=== PATIENT | male | born 1935 | race Caucasian/White ===

== ENCOUNTER → 2018-05-08 12:19 | Outpatient (CLI) | payer MEDICARE, BC, SELFPAY ==
--- NOTE | 2018-05-08 12:19 | DT_ITS ---
This patient was seen during an EMR downtime May 04, 2018 - May 11, 2018. This patient may have a combination of paper and electronic documentation or all paper documentation. All documentation is viewable within the e-chart portion of [facility] for each patient visit.
--- NOTE | 2018-05-08 12:20 | STE_ITS ---
Reason For Study: CAD/S/P CABG Stress Results Protocol: Kieran Protocol Maximum Predicted HR: 137 bpm Target HR: 116 bpm% Max imum Predicted HR: 99 % DurationHeart Rate Stage (mm:ss) (bpm) BPCom ment BASELINE 70 152/80 4 CC DEFINITY STAGE 1 3:00 10 8 160/82 STAGE 2 1:31 13 6 172/822CC DEFINITY, SOB/FATIGUE RECOVERY 68 142/78 Stress Duration: 4:31 mm:ss Maximum Stress HR: 136 bpm Baseline Echocardiogram Findings The estimated ejection fraction is 60 %. Normal left ventricle. Stress Echo Wall motion Data Resting WMIntermediate WMStress WM Resting Wall Motion Wall Motion Stress Ejection Fraction 60 %. Ejection Fraction 45-50 %. EKG Data The baseline ECG displays normal sinus rhythm. NSR, PVC, VENTRICULAR COMPLEX. Interpretation Summary The study was technically difficult. Contrast injection was performed. 1) Abnormal, adequate treadmill echo 2) Positive for anterior/septal ischemia 3) No anginal symptoms 4) Appropriate blood pressure response followed 5) Below average exercise for age 6) Final LVEF= 45-50% 7) Stress test terminated due to severe dyspnea The estimated ejection fraction is 60 %. Ordering Physician: Jossue Ferro MD Referring Physician: Jossue Ferro MD Performed By: Conchis Dugan RDCS
== END ==
PROVIDERS: Family Provider Family Medicine; PCP Family Medicine; Visit Provider Internal Medicine Cardiovascular Disease
DX: I25.10 Atherosclerotic heart disease of native coronary artery without angina pectoris (principal); Z95.1 Presence of aortocoronary bypass graft; I10 Essential (primary) hypertension; I25.2 Old myocardial infarction
CPT/HCPCS: 93017; 93350; Q9957

== ENCOUNTER → 2018-05-12 15:26 | Outpatient (CLI) | payer MEDICARE, BC, SELFPAY | PROVIDERS: Family Provider Family Medicine; PCP Family Medicine; Visit Provider Physician Assistant Medical | DX: R94.39 Abnormal result of other cardiovascular function study (principal); I25.10 Atherosclerotic heart disease of native coronary artery without angina pectoris; I10 Essential (primary) hypertension; I48.0 Paroxysmal atrial fibrillation; E78.5 Hyperlipidemia, unspecified ==

== ENCOUNTER → 2018-05-20 06:50 | Day surgery (SDC) | payer MEDICARE, BC, SELFPAY ==
--- NOTE | 2018-05-12 15:28 | RAD_ITS ---
STUDY: X-RAY CHEST REASON FOR EXAM: Male, 83 years old. Abnormal stress echo TECHNIQUE: PA and lateral COMPARISON: April 09, 2017 FINDINGS: There is mild interstitial prominence in the left lower lobe.. There is no demonstrated pleural abnormality. Postop change status post median sternotomy and CABG Normal size heart. Normal mediastinum and renan. Normal visualized pulmonary arteries. Normal visualized aortic arch and descending thoracic aorta. Dorsal spine demonstrates spondylosis. Normal visualized ribs, clavicles, and shoulders. There is no demonstrated abnormality of the visualized soft tissue structures of the upper abdomen. No significant change since prior exam RAD/Chest PA and Lateral IMPRESSION: Minor chronic interstitial changes at left base. No acute disease Electronically Signed: Tree Mendieta MD at 16:43 EDT , Service support ,
[2018-05-12 15:47] LABS: Absolute Lymphocyte Count 2.06 X10^3/ul (0.83-4.51); Absolute Neutrophil Count 4.6 X10^3/uL (2.0-7.7); Basophil# 0.02 X10^3/uL; Basophil% 0.3 % (0-1); Eosinophil# 0.16 X10^3/uL; Eosinophils% 2.1 % (0-5); Hematocrit 42.5 % (40-54); Lymphocyte # 2.06 X10^3/ul (4.0); Lymphocyte % 27.4 % (19-41); Mean Corp Hgb Conc 32.9 g/gl (32-36); Mean Corpuscular Hgb 32.3 pg (27.0-32.0); Mean Corpuscular Volume 97.9 fL (80-94); Mean Platelet Vol. 10.9 fl (6.2-12.0); Monocyte# 0.68 X10^3/uL; Neutrophil # 4.59 X10^3/uL (2.7-7.7); Neutrophil % 61.1 % (47-70); Platelet Count 138 K/mm3 (150-450); RBC Distribution Width CV 13.8 % (11.6-14.6); RBC Distribution Width SD 49.7 fl (35.1-43.9); Red Blood Count 4.34 M/mm3 (4.6-6.2); White Blood Count 7.5 K/mm3 (4.4-11.0)
[2018-05-12 15:53] LABS: POSITIVE COUNT NO; POSITIVE DIFFERENTIAL NO; POSITIVE MORPHOLOGY NO
[2018-05-12 16:11] LABS: Anion Gap 10 (5-15); BUN 30 mg/dL (7-18); BUN/Creat Ratio 23.6 RATIO (10-20); Chloride 106 mmol/L (98-107); Creatinine, Serum 1.27 mg/dL (0.70-1.30); EST Glomerular Filtration Rate 58 mL/min (>60); Est Glom Filt Rate - Afr Amer 70 mL/min (>60); Glucose 191 mg/dL (74-106); Potassium 4.2 mmol/L (3.5-5.1); Sodium Level 141 mmol/L (136-145)
[2018-05-12 16:31] LABS: Partial Thromboplast Time 28.6 Seconds (24.1-36.2)
[2018-05-12 16:34] LABS: Prothrombin Time (Protime)PT. 13.3 SECONDS (11.7-14.9)
[2018-05-19 09:30] VITALS: BMI 33.2
--- NOTE | 2018-05-20 09:02 | CL.D_ITS ---
Patient Name: SILVINO FERRERA Study Date: 05/20/2018 Performing: Jossue Ferro MD Ht: 70.86 inches 180 cm : 1935 Wt: 238.1 lbs 108 kg Age: 83 Gender: male BSA: 2.27 PROCEDURE(S) PERFORMED EC43-NMQ/COR/LV/CABG CLINICAL PROFILE AND INDICATIONS Indications: Stable Known CAD Heart Failure: None Stress/Imaging Stress Echocardiogram: Yes Result: IndeterminantStress Echocardiogram: Indetermina nt Angina Classification Anginal Classification w/in 2 Weeks: No symptoms CAD Presentations: Other: Poor exercise capacity on stress test in face of 14 year old grafts. Comorbidities/Risk Factors: Hypertension Dyslipidemia Prior CABG CONCLUSIONS Triple vessel CAD of the LM, LAD, LCX and RCA. Widely patent MUHAMMAD to LAD. Widely patent SVG to RCA. Widely patent SVG to OM Widely patent SVG to DIAG. RECOMMENDATIONS Risk factor modification ASA Indefinitely Management as per referring Watch Dial Stoner Continue Plavix for graft preservation. DESCRIPTION OF PROCEDURE The patient arrived to the procedure lab. The risks and benefits of the procedure as well as a full d escription of our services here and current unavailability of surgical backup were fully explained to the patient and/or their significant other prior to the catheterization. The Timeout was completed, verifying the correct patient and procedure. The patient's procedural site was prepped and draped in the usual fashion. Local anesthetic was given subcutaneously to right groin region with Lidocaine 2%. Using a modified Seldinger technique, arterial access was obtained via the right femoral artery, a 5 Fr sheath was inserted. Left Coronary Artery selective angiography was performed in multiple views u sing a 5 Fr. JL 5 catheter. Right Coronary Artery selective angiography was then performed in multipl e views using a 5 Fr. 3DRC (Bowen) catheter. Saphenous Vein graft to the DIAG 1 selective angiogra phy was performed in multiple views using a 5 Fr. 3DRC (Bowen) catheter. Saphenous Vein graft to t he RCA selective angiography was performed in multiple views using a 5 Fr. 3DRC (Bowen) catheter. Left internal mammary artery graft to the LAD selective angiography was performed in multiple views u sing a 5 Fr. 3DRC (Bowen) catheter. Saphenous Vein graft to the Circumflex selective angiography w as performed in multiple views using a 4 Fr. AR MOD 2 catheter. Left Ventriculography was performed i n PAYNE projection using a 5 Fr. Pigtail catheter. LV to AO pullback pressures were then recorded.The a rterial sheath was pulled and manual compression applied until hemostasis is achieved. CORONARY ANGIOGRAPHY DOMINANCE: Right Dominant LEFT HEART ASSESSMENT Left Ventricular Ejection Fraction: by LV Gram 65 % Normal LV wall motion LEFT MAIN: 75 ostial % Stenosis LEFT ANTERIOR DECENDING ARTERY: PROX LAD: 75 % Stenosis CIRCUMFLEX ARTERY: MID CIRC: 75 % Stenosis RIGHT CORONARY ARTERY: PROX RCA: 100 % Stenosis GRAFTS: MUHAMMAD graft to the LAD is patent Saphenous Vein graft to the 1st Diagonal is patent Saphenous Vein graft to the CIRC is patent Saphenous Vein graft to the RCA is patent COMPLICATIONS No Complications PROCEDURE MEDICATIONS Oxygen: 2 L/min via nasal cannula Baby Aspirin (81mg) 1 Tabs PO @ 05/20/2018 07:09:47 SUMMARY OF HEMODYNAMIC DATA Time AIR REST ECG 07:09:59 AO 158/61 (95) SA 08:40:11 LV 143/-22, 18 08:50:55 LV 153/-18, 17 08:51:01 LVp 159/55, 59 08:51:14 AOp 160/56 (94) 08:51:19 Signed By Jossue Ferro MD On 05/20/2018 09:01:58 Jossue Ferro MD
== END ==
LOC: CLSP 06:51
PROVIDERS: Physician Assistant Medical; Family Provider Family Medicine; PCP Family Medicine; Visit Provider Internal Medicine Cardiovascular Disease
DX: R94.39 Abnormal result of other cardiovascular function study (principal); I25.810 Atherosclerosis of coronary artery bypass graft(s) without angina pectoris; I10 Essential (primary) hypertension; I48.0 Paroxysmal atrial fibrillation; N40.0 Benign prostatic hyperplasia without lower urinary tract symptoms; E78.5 Hyperlipidemia, unspecified; I25.2 Old myocardial infarction; Z79.82 Long term (current) use of aspirin; Z95.1 Presence of aortocoronary bypass graft; Z85.038 Personal history of other malignant neoplasm of large intestine; Z87.891 Personal history of nicotine dependence
CPT/HCPCS: 36415; 71046; 80048; 85025; 85610; 85730; 93459; J7040; C1769; Q9967

== ENCOUNTER → 2018-07-24 07:13 | Outpatient (CLI) | payer MEDICARE, BC, SELFPAY ==
[2018-07-24 10:46] LABS: AST(SGOT) 17 U/L (15-37); Alanine Aminotransfer ALT/SGPT 18 U/L (16-61); Albumin, Serum 3.3 g/dL (3.2-5.0); Alkaline Phosphatase 58 U/L (45-117); Bilirubin, Direct 0.15 mg/dL (0.00-0.30); Cholesterol 117 mg/dL (200); Globulin 3.1 g/dL (2.2-4.2); High Density Lipoprotein 56 mg/dL; Protein, Total 6.4 g/dL (6.4-8.2); Triglycerides 91 mg/dL; Very Low Density Lipoprotein 18 mg/dL (5-40)
== END ==
PROVIDERS: Family Provider Family Medicine; PCP Family Medicine; Visit Provider Physician Assistant Medical
DX: I25.10 Atherosclerotic heart disease of native coronary artery without angina pectoris (principal); E78.5 Hyperlipidemia, unspecified; I10 Essential (primary) hypertension
CPT/HCPCS: 36415; 80061; 80076

== ENCOUNTER → 2018-10-20 07:26 | Outpatient (CLI) | payer MEDICARE, BC, SELFPAY ==
[2018-10-20 11:04] LABS: Anion Gap 9 (5-15); BUN 23 mg/dL (7-18); BUN/Creat Ratio 21.3 RATIO (10-20); Calcium,Total 8.6 mg/dL (8.5-10.1); Chloride 106 mmol/L (98-107); Creatinine, Serum 1.08 mg/dL (0.70-1.30); EST Glomerular Filtration Rate 69 mL/min (>60); Est Glom Filt Rate - Afr Amer 84 mL/min (>60); Glucose 137 mg/dL (74-106); PSA,Total- Diagnostic < 0.01 ng/mL (0.0-4.0); Potassium 4.4 mmol/L (3.5-5.1); Sodium Level 142 mmol/L (136-145)
[2018-10-20 11:07] LABS: Hemoglobin A1c 7.4 % (4.2-6.3)
== END ==
PROVIDERS: Family Provider Family Medicine; PCP Family Medicine; Referring Provider Family Medicine; Visit Provider Family Medicine
DX: C61 Malignant neoplasm of prostate (principal); E11.9 Type 2 diabetes mellitus without complications
CPT/HCPCS: 36415; 80048; 83036; 84153

== ENCOUNTER → 2019-02-05 07:34 | Outpatient (CLI) | payer MEDICARE, SELFPAY ==
[2018-07-15 09:24] VITALS: BMI 33.6
[2019-02-05 10:19] LABS: AST(SGOT) 18 U/L (15-37); Alanine Aminotransfer ALT/SGPT 18 U/L (16-61); Albumin, Serum 3.6 g/dL (3.2-5.0); Alkaline Phosphatase 62 U/L (45-117); Bilirubin, Direct 0.12 mg/dL (0.00-0.30); Cholesterol 134 mg/dL (200); Globulin 3.2 g/dL (2.2-4.2); High Density Lipoprotein 52 mg/dL; Protein, Total 6.8 g/dL (6.4-8.2); Triglycerides 124 mg/dL; Very Low Density Lipoprotein 25 mg/dL (5-40)
== END ==
PROVIDERS: Family Provider Family Medicine; PCP Family Medicine; Referring Provider Physician Assistant Medical; Visit Provider Physician Assistant Medical
DX: R69 Illness, unspecified (principal)
CPT/HCPCS: 80061; 80076

== ENCOUNTER 2019-02-07 08:55 | Inpatient (IN) | payer MEDICARE, SELFPAY ==
[2019-02-07] VITALS (9 sets, daily range): BP systolic 130–162; BP diastolic 57–79; PULSE 70–86; RESP 16–20; TEMP 36.3–37; O2SAT 93–97; BMI 32.8; BMI 33.1
--- NOTE | 2019-02-07 09:15 | CT_ITS ---
STUDY: CT ABDOMEN AND PELVIS WITHOUT CONTRAST REASON FOR EXAM: Male, 83 years old. Abdominal pain, history of colon cancer RADIATION DOSAGE (If Supplied By Facility): CTDIvol = ( 16.28 ) mGy, DLP = ( 984.62 ) mGycm TECHNIQUE: Transaxial images were obtained from the dome of the diaphragm to the symphysis pubis without oral contrast, and without intravenous contrast. Sagittal and coronal images were reconstructed. Individualized dose optimization techniques were used for this CT. COMPARISON: 06/28/2016 FINDINGS: There are chronic interstitial fibrotic changes of the lung bases. Coronary artery calcifications and sternotomy wires partially visualized. Normal liver. There are multiple gallstones. Normal spleen. Normal pancreas. Normal bilateral adrenal glands. No hydronephrosis. Left parapelvic renal cysts are similar. There is a small hiatal hernia. There are dilated loops of the small intestine with a non-distended colon consistent with a small bowel obstruction. There is a transition point in the central lower abdomen (axial image 157, coronal image 66). There is fecal residue in the colon but no colon wall thickening demonstrated. Sigmoid colon anastomosis is similar. There is non-visualization of the appendix. There is diffuse atherosclerotic calcification of the abdominal aorta, without a demonstrated aneurysm. Normal inferior vena cava. Normal retroperitoneum. Normal urinary bladder. There are metallic implants adjacent to the prostate gland. A left inguinal hernia containing a portion of small bowel identified but does not appear to be cause of small bowel obstruction. There are degenerative changes of the lumbar spine and bilateral hips. CT/Abdomen/Pelvis without Cont IMPRESSION: 1. Distal jejunal or proximal ileal small bowel obstruction with transition point in the lower central abdomen, likely secondary to adhesions. No pneumoperitoneum, pneumatosis or portal venous gas. 2. Left inguinal hernia containing a portion of small bowel but does not appear to contribute to small bowel obstruction. 3. Additional chronic changes, as above. Electronically Signed: Grayson Medina MD at 10:43 EDT , Service support ,
[2019-02-07] MEDS: Ondansetron 4 MG/2 ML Vial IV (09:55)
[2019-02-07] MEDS: Morphine 4 MG/ML Syringe IV ×2 (09:55→15:11)
[2019-02-07] MEDS: 0.9% Normal Saline 1,000 ML 1000 ML IV (09:55)
[2019-02-07 10:13] LABS: Absolute Neutrophil Count 7.4 X10^3/uL (2.0-7.7); Basophil# 0.01 X10^3/uL; Basophil% 0.1 % (0-1); Eosinophil# 0.01 X10^3/uL; Eosinophils% 0.1 % (0-5); Hematocrit 44.8 % (40-54); Hemoglobin 14.5 g/dl (13.0-16.5); Lymphocyte % 8.8 % (19-41); Mean Corp Hgb Conc 32.4 g/gl (32-36); Mean Corpuscular Hgb 31.5 pg (27.0-32.0); Mean Corpuscular Volume 97.4 fL (80-94); Mean Platelet Vol. 10.9 fl (6.2-12.0); Monocyte# 0.86 X10^3/uL; Monocyte% 9.5 % (0-10); Neutrophil # 7.37 X10^3/uL (2.7-7.7); Neutrophil % 81.4 % (47-70); Platelet Count 171 K/mm3 (150-450); RBC Distribution Width CV 14.1 % (11.6-14.6); RBC Distribution Width SD 50.4 fl (35.1-43.9); White Blood Count 9.1 K/mm3 (4.4-11.0)
[2019-02-07 10:14] LABS: POSITIVE COUNT NO; POSITIVE DIFFERENTIAL NO; POSITIVE MORPHOLOGY NO
[2019-02-07 10:28] LABS: AST(SGOT) 14 U/L (15-37); Alanine Aminotransfer ALT/SGPT 16 U/L (16-61); Albumin, Serum 3.5 g/dL (3.2-5.0); Alkaline Phosphatase 63 U/L (45-117); Anion Gap 10 (5-15); BUN 30 mg/dL (7-18); BUN/Creat Ratio 26.3 RATIO (10-20); Calcium,Total 8.9 mg/dL (8.5-10.1); Chloride 99 mmol/L (98-107); Creatinine, Serum 1.14 mg/dL (0.70-1.30); EST Glomerular Filtration Rate 65 mL/min (>60); Est Glom Filt Rate - Afr Amer 79 mL/min (>60); Estimated Creatinine Clearance 52.29 ml/min; Globulin 3.5 g/dL (2.2-4.2); Glucose 191 mg/dL (74-106); Lipase 63 U/L (73-393); Potassium 3.8 mmol/L (3.5-5.1); Sodium Level 136 mmol/L (136-145)
--- NOTE | 2019-02-07 11:03 | RAD_ITS ---
STUDY: X-RAY - ABDOMEN/PELVIS REASON FOR EXAM: Male, 83 years old. An NG tube insertion TECHNIQUE: Supine abdomen COMPARISON: None. FINDINGS: Enteric tube extends to the left upper abdomen. Dilated loops of small bowel noted similar since CT earlier today. There is no demonstrated free abdominal air. The visualized liver, spleen and kidneys are grossly normal in size and morphology. Metallic prostatic implants noted. Normal soft tissue structures. Normal visualized osseous structures. RAD/Abdomen Single View (Portable) IMPRESSION: Enteric tube extends to the stomach. Persistent bowel obstruction. Electronically Signed: Grayson Medina MD at 12:43 EDT , Service support ,
--- NOTE | 2019-02-07 11:19 | NURSING ---
PAGED DR MACKAY
[2019-02-07 11:20] LABS: Red Blood Cells-Urine 0 SEEN /hpf (0-5)
[2019-02-07 11:22] LABS: Color, Urine Yellow (Yellow); Glucose, Dipstick Normal (Normal); Ketone-Dipstick 15 mg/dl (Negative); Leukocyte Esterase-Dipstick 25 /ul (Negative); Nitrite-Dipstick Negative (Negative); Occult Blood-Urine Negative /ul (Negative); Protein-Dipstick 30 mg/dl (Negative); Specific Gravity, Urine 1.025 (1.002-1.030); Urine Clarity Sl. Cloudy (Clear); Urine Urobilinogen 1 mg/dl (Normal)
[2019-02-07 11:25] LABS: Urine Bilirubin Dipstick 1 mg/dL (Negative)
[2019-02-07 11:31] LABS: Bacteria 1+ /hpf (None Seen); Hyaline Cast 0-5 SEEN /lpf (0-5); Mucous, Urine 2+ /hpf (<or=2+); Squamous Epithelial Cells - UA 0-5 SEEN /hpf (0-5); White Blood Cells 0-5 SEEN /hpf (0-5)
--- NOTE | 2019-02-07 11:46 | ED.VISSUMM ---
- ER Visit Summary Date of Service: 02/07/19 Chief Complaint: Patient with nausea vomiting and abdominal pain past 2 days. No fever or chills. He has not been able to have a bowel movement. He has a complicated history of multiple abdominal surgeries as well as obstructions and lysis of adhesion. He feels similar today. Physical Examination: Patient appears in some distress Moist mucous membranes, no obvious facial deformity No C-spine tenderness supple neck. Regular rate and rhythm without any obvious murmurs Clear lungs bilaterally speaking in full sentences without any obvious respiratory distress Abdomen soft no significant distention, I do hear bowel sounds are regular quite diminished. Moves all extremities without any difficulty or pain. Skin does not show any obvious rashes or lesions, no trauma. Alert oriented ?3 with no gross focal deficit Emergency Department Course and Treatment: Patient is found to have an obstruction, I talked to Dr. Osuna patient will be admitted. NG tube was placed. Admit stable condition Impression: [Small bowel obstruction] This note was generated with [employer] dictation software. It may contain incorrect words, spelling, and punctuation that were not noted in review of the chart prior to signing ED Disposition - Plan for ED Patient: Referrals: Saul Garay MD [Primary Care Provider] -
--- NOTE | 2019-02-07 12:25 | PN_ITS ---
Subjective: Hospital medicine consult: Reason for consult: Medical management, comanagement for general surgery 83-year-old male with past medical history of CAD, hypertension, hyperlipidemia, paroxysmal atrial fibrillation. He has a complex past medical history. 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 He had reversal of his colostomy done subsequently. He has history of recurrent hernia at the colostomy site status post mesh repair. 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 He comes in today with complaints of nausea and vomiting ongoing for 2 days as well as abdominal discomfort. He denies any bowel movements. Denies any fever or chills or chest pain or shortness of breath. He has not been able to eat anything for the past 2 days because anytime he eats he vomits. Vitals in the ED show temperature of 90 7.4F, heart rate of 70, blood pressure was 130/57, respiratory rate was 90, respiratory 23% on room air WBC count is 9.1, hemoglobin is 14.5, platelet count is 171. BMP is unremarkable with BUN of 30, creatinine 1.14 Vitals/I&O's: Vital Signs Temp Pulse Resp BP Pulse Ox 98 F 86 17 141/79 H 96 02/07/19 08:56 02/07/19 08:56 02/07/19 11:29 02/07/19 08:56 02/07/19 08:56 Oxygen Delivery Method Room Air Weight: 106.594 kg Body Mass Index (BMI) 32.8 General: Alert, Oriented x3, Cooperative, No apparent distress, - - obese, comfortable, not on oxygen HEENT: Atraumatic, PERRLA, EOMI, Normocephalic Oral: Moist Mucosa Neck: Supple Lungs: Clear to auscultation, Normal air movement Cardiovascular: Regular rate, Regular Rhythm, Normal S1, Normal S2, No murmurs Abdomen: Bowel Sounds Present, Soft, Tender - lower abdominal tenderness, - - Midline incisional scar Extremities: No edema Skin: No rashes Musculoskeletal: No Tenderness to Palpation of Joints or Extremities Lymphatic: No Cervical, Supraclavicular, or Inguinal Adenopathy Neurological: Cranial nerves II-XII grossly intact, Neuro grossly intact Psych/Mental Status: Normal Affect, Appropriate Laboratory Results 02/07/19 09:50: WBC 9.1, RBC 4.60, Hgb 14.5, Hct 44.8, MCV 97.4 H, MCH 31.5, MCHC 32.4, RDW 14.1, RDW Differential 50.4 H, Plt Count 171, MPV 10.9, Immature Gran % (Auto) 0.100, Neut % (Auto) 81.4 H, Lymph % (Auto) 8.8 L, [place] % (Auto) 9.5, Eos % (Auto) 0.1, Baso % (Auto) 0.1, Absolute Neuts (auto) 7.4, Absolute Lymphs (auto) 0.80 L, Total Counted Not Reportable 02/07/19 09:50: Sodium 136, Potassium 3.8, Chloride 99, Carbon Dioxide 27.0, Anion Gap 10, BUN 30 H, Creatinine 1.14, Estim Creat Clear Calc 52.29, Est GFR (MDRD) Af Amer 79, Est GFR (MDRD) Non-Af 65, BUN/Creatinine Ratio 26.3 H, Glucose 191 H, Calcium 8.9, Total Bilirubin 1.30 H, AST 14 L, ALT 16, Alkaline Phosphatase 63, Total Protein 7.0, Albumin 3.5, Globulin 3.5, Albumin/Globulin Ratio 1.0, Lipase 63 L 02/07/19 11:06: Urine Color Yellow, Urine Clarity Sl. Cloudy, Urine pH 5.0, Ur Specific [place] 1.025, Urine Protein 30 H, Urine Glucose (UA) Normal, Urine Ketones 15 H, Urine Occult Blood Negative, Urine Nitrite Negative, Urine Bilirubin 1 H, Urine Urobilinogen 1 H, Ur Leukocyte Esterase 25 H, Urine RBC 0 SEEN, Urine WBC 0-5 SEEN, Ur Squamous Epith Cells 0-5 SEEN, Urine Bacteria 1+, Hyaline Casts 0-5 SEEN, Urine Mucus 2+ Medical Necessity - Tobacco Use Smoking Status: Never smoker Assessment/Plan 83-year-old male with past medical history of CAD, hypertension, hyperlipidemia, paroxysmal atrial fibrillation, with complex past surgical history significant for resection for colon cancer in the status post colostomy, reversal of colostomy, history of recurrent hernia repairs who comes in with complaints of nausea vomiting and found to have small bowel obstruction 1. Acute small bowel obstruction secondary to adhesions, no electrolyte imbalances, general surgery plans on conservative management Abdominal CT on admission shows dilated loops of small bowel with a transition point in the central lower abdomen. Plan: Continue on IV fluids, status post NG tube, monitor output, monitor patient expectantly 2. CAD status post CABG, on aspirin, statin, beta-gabirella, DIANDRA inhibitor. We will continue all except for DIANDRA inhibitor for now on account of patient's hydration status 3. Hypertension, controlled, continue home amlodipine, metoprolol. Hydrochlorothiazide and ramipril on hold 4. Hyperlipidemia, on statin 5. DVT PPx- Heparin SC Code Visit Inpatient E&M: 48318 Init Hosp L3
--- NOTE | 2019-02-07 12:41 | CM.ED ---
Social Work Note Face to face with pt to complete initial assessment for admission. Introduced self and role at [facility]. The pt is alone during assessment, but alert and oriented x3 and able to participate. Pt reports to live with his in a one-story home with 3 HILDA and a handrail/banister. Denies access issues or use of DME. Pt is independent with ADLs and does not anticipate any discharge needs at this time. Confirms that his PCP is Dr. Saul Garay at [facility]. He is also established with Dr. Ferro and Dr. Francois. Preferred pharmacy is [facility] for long-term prescriptions and [facility] for new or short term prescriptions. RN CM to continue to follow and assist as needed if discharge needs arise. Kinga Jonas, SUSTAINABILITY MANAGER, [employer]
--- NOTE | 2019-02-07 15:30 | PCM.HP.STD ---
History of Present Illness Date of Admission: 02/07/19 The patient is a 83 year old M with a recurring small bowel obstruction. The patient has noted not feeling right for the past week but now has had nausea, vomiting, abdominal distention decreased stool output and much less flatus than usual for the last 2 days. He presented emergency department with these complaints. CT scan of the abdomen and pelvis demonstrated a small bowel obstruction which was felt to also have a transition point. Laboratory studies were generally unremarkable except for mild dehydration. The patient has a very complex past surgical history. 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 ?He then had colostomy takedown. ?He then developed a recurrent hernias a colostomy site and this was repaired with Fr[place]-Rios mesh. ? ? 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 ??At that time, he presented with a complaint of a bulge and discomfort ?in his left inguinal region. ?The patient notes discomfort in this area with lifting. ?The symptoms have increased. ? The patient notes no symptoms of bowel obstruction and denies nausea or vomiting. The patient was seen by his primary care physician ?who felt the patient has a hernia. ?Romario was referred for evaluation and treatment. ? I obtained a CT scan which demonstrated a direct recurrence at the left pubic region. ?He also has a subcutaneous fluid collection. ?This is below the level of his colostomy site. ? Dr Eastman is his java security engineer. ? The fluid collection was aspirated last visit. ?Culture returned as rare aerococcus and Staph Lugdunemsis - sensitive to bactrim. ? The patient was taken by Dr. Diaz for incision and drainage of the abdominal wall abscess on June 06, 2008 ??The site has chronically drained. ? A Ct fistulagram demonstrated tracking from the drain site to the left inguinal area, near retained mesh. ? Dr Eastman is his java security engineer. ?He had a stress test recently which was negative. ? ? I performed a wound exploration with removal of gortex mesh on August 04, 2008. ??The patient currently notes significant redness at the inguinal site. ?his appetite has been good. ?he denies fever, chills or abdominal pain. ?he does note some moderate incisional discomfort. ? He had cellulitis which returned as sensative staph. ?He responded nicely to Keflex ? He returned with an incarcerated left inguinal hernia on August 22, 2015. ?I performed an urgent open left inguinal hernia repair with mesh on 08/23/2015 placing in open fashion a larger Bard 3-D max mesh to cover the sites of his recurrent defect. ?The patient did quite well postoperatively had no concerns of infection or complaints in his left inguinal area. ? ? The patient has however had 4 hospitalizations for small bowel obstruction since that time. ?These have resolved with conservative management. ?He was most recently seen at [facility] and had a CT scan performed at that location. He presents for follow-up for what sounds like intermittent small bowel obstruction. ?On 07/01/16 the patient underwent laparoscopic lysis of adhesions to the midline abdomen from the umbilicus down, adhesions in the pelvis,interloop adhesions and adhesions from the cecum and descending and sigmoid colon. 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) CABG x 4 MUHAMMAD-LAD, SVG-Lat Cx, SVG-D1, SVG-RCA w/ MAZE procedure 10/17/2004 H/O coronary artery bypass surgery (Chronic ~10/17/04) CABG x 4 MUHAMMAD-LAD, SVG-Lat Cx, SVG-D1, SVG-RCA w/ MAZE procedure 10/17/2004 Paroxysmal atrial fibrillation (Chronic) Hyperlipidemia (Chronic) Hypertension (Chronic) Old myocardial infarction (Chronic) Medical History: Medical History (Last Updated 05/12/18 @ 14:43 by NOAH Bhatt) 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 Widely patent SVG to the distal RCA populated the PDA and posterolateral branch. Widely patent SVG to the diagonal with evidence of competitive flow seen from a patent MUHAMMAD to the LAD. Widely patent LI MA to the LAD. Small bowel obstruction K56.609 Type 2 diabetes mellitus without complications E11.9 Allergies Sulfa (Sulfonamide Antibiotics) Allergy (Verified 02/07/19 09:00) itching, headache Home Medications: Ambulatory Orders Medication Instructions Recorded Aspirin [Aspirin, Baby] 81 mg PO DAILY@0800 11/29/14 Nitroglycerin [Nitrostat] 0.4 mg SUBLINGUAL Q5M PRN 11/29/14 Pantoprazole Sodium [Protonix] 40 mg PO DAILY 04/09/17 amlodipine 5 mg tablet 5 mg PO QDAY tab 05/12/18 metoprolol tartrate 50 mg tablet 50 mg PO BID #180 tab 07/15/18 ramipril 10 mg capsule 10 mg PO BID #180 cap 07/15/18 hydrochlorothiazide 25 mg tablet 25 mg PO QAM #90 tab 09/03/18 Rosuvastatin Calcium [Crestor] 20 mg PO QHS 02/07/19 Surgical History: Surgical History (Last Reviewed 07/15/18 @ 09:26 by Kimberly Farfan) H/O coronary artery bypass surgery (Chronic) Onset Date: ~10/17/04 Z95.1 CABG x 4 MUHAMMAD-LAD, SVG-Lat Cx, SVG-D1, SVG-RCA w/ MAZE procedure 10/17/2004 History of herniorrhaphy Z98.890, Z87.19 History of partial colectomy Z90.49 Surgical History: - - CABG x 4, BL inguinal recurrent hernia repairs. Psychiatric History: No pertinent psych hx Smoking Status: Never smoker - *Family History Maternal Family History: Family History (Last Reviewed 07/15/18 @ 09:26 by Kimberly Farfan) Mother CVA (cerebral vascular accident) History Items: Hypertension Paternal Family History: Family History (Last Reviewed 07/15/18 @ 09:26 by Kimberly Farfan) Mother CVA (cerebral vascular accident) History Items: No pertinent history Review of Systems Constitutional: Denies: Chills, Fever, Weight Change HEENT: Denies: Head Aches, Sinus Congestion, Sinus Drainage Cardiovascular: Denies: Chest Pain, Palpitations Respiratory: Denies: Cough, Shortness of breath at rest, Sputum production Gastrointestinal: Reports: Nausea, Vomiting. Denies: Abdominal Pain Genitourinary: Denies: Dysuria Musculoskeletal: Denies: Joint Pain, Joint Tenderness Skin: Denies: Rash, Wounds Neurological: Denies: Numbness, Tingling, Focal weakness Psychiatric: Denies: Anxiety, Depression, Homicidal Ideations, Suicidal Ideations Hematologic/ Lymphatic: Denies: Easy Bruising, Easy Bleeding VTE Information - Inpt Only VTE Present on Admission: No VTE Mechan Device Prophylaxis: SCD's VTE Pharm Prophylaxis ordered?: Yes - Physical Exam General: Alert, Oriented x3, Cooperative Lungs: Clear to auscultation, Normal air movement Cardiovascular: Regular rate, No murmurs Abdomen: Bowel Sounds Present, Soft, Distended, Tender - mildly so in the left lower quadrant without peritoneal signs Vital Signs Temp Pulse Resp BP Pulse Ox 97.4 F L 72 16 162/72 H 94 02/07/19 13:58 02/07/19 14:10 02/07/19 13:58 02/07/19 13:58 02/07/19 13:58 Oxygen Delivery Method Room Air Weight: 107.7 kg Body Mass Index (BMI) 33.1 Intake and Output for Last 24 Hours 02/05/19 02/06/19 02/08/19 23:59 23:59 00:59 Intake Total 30 Balance 30 Laboratory Tests Past 24 Hrs 02/07/19 02/07/19 02/07/19 09:50 09:50 11:06 WBC 9.1 RBC 4.60 Hgb 14.5 Hct 44.8 MCV 97.4 H MCH 31.5 MCHC 32.4 RDW 14.1 RDW Differential 50.4 H Plt Count 171 MPV 10.9 Immature Gran % (Auto) 0.100 Neut % (Auto) 81.4 H Lymph % (Auto) 8.8 L [place] % (Auto) 9.5 Eos % (Auto) 0.1 Baso % (Auto) 0.1 Absolute Neuts (auto) 7.4 Absolute Lymphs (auto) 0.80 L Total Counted Not Reportable Sodium 136 Potassium 3.8 Chloride 99 Carbon Dioxide 27.0 Anion Gap 10 BUN 30 H Creatinine 1.14 Estim Creat Clear Calc 52.29 Est GFR (MDRD) Af Amer 79 Est GFR (MDRD) Non-Af 65 BUN/Creatinine Ratio 26.3 H Glucose 191 H Calcium 8.9 Total Bilirubin 1.30 H AST 14 L ALT 16 Alkaline Phosphatase 63 Total Protein 7.0 Albumin 3.5 Globulin 3.5 Albumin/Globulin Ratio 1.0 Lipase 63 L Urine Color Yellow Urine Clarity Sl. Cloudy Urine pH 5.0 Ur Specific [place] 1.025 Urine Protein 30 H Urine Glucose (UA) Normal Urine Ketones 15 H Urine Occult Blood Negative Urine Nitrite Negative Urine Bilirubin 1 H Urine Urobilinogen 1 H Ur Leukocyte Esterase 25 H Urine RBC 0 SEEN Urine WBC 0-5 SEEN Ur Squamous Epith Cells 0-5 SEEN Urine Bacteria 1+ Hyaline Casts 0-5 SEEN Urine Mucus 2+ Assessment/Plan recurring small bowel obstruction, multiple previous surgical procedures, complicated prior small bowel lysis of adhesions Currently the patient is doing well clinically with a normal white blood cell count no peritoneal signs and a relatively soft abdomen. We will plan for conservative management with IV fluids, NG to suction and serial examinations. Discussed with the the surgical intervention again may be necessary given the fact there appeared to be some area of tethering on the CT scan but without more ominous signs. We will plan for conservative measures at this time. appreciated medical assistance with the patient's colon but is of prior myocardial infarction, hypertension, atrial fibrillation, and diabetes.
[2019-02-07] MEDS: Metoprolol Tartrate 50 MG Tablet PO (22:15)
[2019-02-07] MEDS: Phenol/Sodium Phenolate 180ML 3 SPRAY MM (22:16)
[2019-02-07] MEDS: Heparin Injection (Vial) 5,000 UNIT/ML VIAL 5000 UNIT SC (22:16)
[2019-02-07] MEDS: Atorvastatin Calcium 40 MG Tablet PO (22:16)
[2019-02-08] VITALS (12 sets, daily range): BP systolic 129–145; BP diastolic 54–72; PULSE 63–72; RESP 16; TEMP 36.6–36.9; O2SAT 95–98
--- NOTE | 2019-02-08 05:00 | RAD_ITS ---
STUDY: X-RAY - ABDOMEN/PELVIS REASON FOR EXAM: Male, 83 years old. Abdominal pain TECHNIQUE: 4 frontal views were obtained COMPARISON: None. FINDINGS: Normal visualized lung bases. There is an unremarkable bowel gas pattern. There is no demonstrated free abdominal air. The visualized liver, spleen and kidneys are grossly normal in size and morphology. Normal soft tissue structures. Normal visualized osseous structures. RAD/Abd Inc Decub and/or Erect IMPRESSION: Normal x-ray examination of the abdomen and pelvis. Electronically Signed: Keith Burroughs MD at 5:53 EDT , Service support ,
[2019-02-08] MEDS: Heparin Injection (Vial) 5,000 UNIT/ML VIAL 5000 UNIT SC ×3 (05:24→21:48)
[2019-02-08] MEDS: Phenol/Sodium Phenolate 180ML 3 SPRAY MM ×2 (05:25→12:50)
[2019-02-08 05:42] LABS: Anion Gap 8 (5-15); BUN 34 mg/dL (7-18); Calcium,Total 7.9 mg/dL (8.5-10.1); Chloride 109 mmol/L (98-107); Creatinine, Serum 0.94 mg/dL (0.70-1.30); EST Glomerular Filtration Rate 81 mL/min (>60); Est Glom Filt Rate - Afr Amer 98 mL/min (>60); Estimated Creatinine Clearance 63.42 ml/min; Glucose 120 mg/dL (74-106); Potassium 3.9 mmol/L (3.5-5.1); Sodium Level 142 mmol/L (136-145)
[2019-02-08 06:01] LABS: Absolute Lymphocyte Count 1.49 X10^3/ul (0.83-4.51); Absolute Neutrophil Count 3.5 X10^3/uL (2.0-7.7); Basophil# 0.01 X10^3/uL; Basophil% 0.2 % (0-1); Eosinophil# 0.13 X10^3/uL; Eosinophils% 2.2 % (0-5); Hematocrit 39.3 % (40-54); Hemoglobin 12.4 g/dl (13.0-16.5); Lymphocyte # 1.49 X10^3/ul (4.0); Lymphocyte % 24.9 % (19-41); Mean Corp Hgb Conc 31.6 g/gl (32-36); Mean Corpuscular Hgb 31.9 pg (27.0-32.0); Monocyte# 0.85 X10^3/uL; Monocyte% 14.2 % (0-10); Neutrophil # 3.49 X10^3/uL (2.7-7.7); Neutrophil % 58.3 % (47-70); Platelet Count 130 K/mm3 (150-450); RBC Distribution Width CV 14.1 % (11.6-14.6); RBC Distribution Width SD 51.1 fl (35.1-43.9); Red Blood Count 3.89 M/mm3 (4.6-6.2)
[2019-02-08 06:09] LABS: POSITIVE COUNT NO; POSITIVE DIFFERENTIAL NO; POSITIVE MORPHOLOGY NO
--- NOTE | 2019-02-08 08:52 | PCM.PN.SRG ---
Subjective: No complaints, more flatus, slight smear of stool - Physical Exam General: Alert, Oriented x3, Cooperative Lungs: Clear to auscultation, Normal air movement Cardiovascular: Regular rate, No murmurs Abdomen: Bowel Sounds Present, Soft, Tender - mildly in LLQ, less distended Vital Signs Temp Pulse Resp BP Pulse Ox 98.0 F 66 16 129/54 H 95 02/08/19 02:50 02/08/19 05:54 02/08/19 02:50 02/08/19 02:50 02/08/19 02:50 Oxygen Delivery Method Room Air Weight: 107.7 kg Body Mass Index (BMI) 33.1 Intake and Output for Last 24 Hours 02/06/19 02/07/19 02/08/19 22:59 23:59 23:59 Intake Total 1822 / 1822 Output Total 500 / 500 Balance 1322 / 1322 Laboratory Tests Past 24 Hrs 02/07/19 02/07/19 02/07/19 09:50 09:50 11:06 WBC 9.1 RBC 4.60 Hgb 14.5 Hct 44.8 MCV 97.4 H MCH 31.5 MCHC 32.4 RDW 14.1 RDW Differential 50.4 H Plt Count 171 MPV 10.9 Immature Gran % (Auto) 0.100 Neut % (Auto) 81.4 H Lymph % (Auto) 8.8 L [place] % (Auto) 9.5 Eos % (Auto) 0.1 Baso % (Auto) 0.1 Absolute Neuts (auto) 7.4 Absolute Lymphs (auto) 0.80 L Total Counted Not Reportable Sodium 136 Potassium 3.8 Chloride 99 Carbon Dioxide 27.0 Anion Gap 10 BUN 30 H Creatinine 1.14 Estim Creat Clear Calc 52.29 Est GFR (MDRD) Af Amer 79 Est GFR (MDRD) Non-Af 65 BUN/Creatinine Ratio 26.3 H Glucose 191 H Calcium 8.9 Total Bilirubin 1.30 H AST 14 L ALT 16 Alkaline Phosphatase 63 Total Protein 7.0 Albumin 3.5 Globulin 3.5 Albumin/Globulin Ratio 1.0 Lipase 63 L Urine Color Yellow Urine Clarity Sl. Cloudy Urine pH 5.0 Ur Specific [place] 1.025 Urine Protein 30 H Urine Glucose (UA) Normal Urine Ketones 15 H Urine Occult Blood Negative Urine Nitrite Negative Urine Bilirubin 1 H Urine Urobilinogen 1 H Ur Leukocyte Esterase 25 H Urine RBC 0 SEEN Urine WBC 0-5 SEEN Ur Squamous Epith Cells 0-5 SEEN Urine Bacteria 1+ Hyaline Casts 0-5 SEEN Urine Mucus 2+ 02/08/19 02/08/19 04:56 04:56 WBC 6.0 RBC 3.89 L Hgb 12.4 L Hct 39.3 L MCV 101.0 H MCH 31.9 MCHC 31.6 L RDW 14.1 RDW Differential 51.1 H Plt Count 130 L MPV 11.0 Immature Gran % (Auto) 0.200 Neut % (Auto) 58.3 Lymph % (Auto) 24.9 [place] % (Auto) 14.2 H Eos % (Auto) 2.2 Baso % (Auto) 0.2 Absolute Neuts (auto) 3.5 Absolute Lymphs (auto) 1.49 Total Counted Not Reportable Sodium 142 Potassium 3.9 Chloride 109 H Carbon Dioxide 25.0 Anion Gap 8 BUN 34 H Creatinine 0.94 Estim Creat Clear Calc 63.42 Est GFR (MDRD) Af Amer 98 Est GFR (MDRD) Non-Af 81 BUN/Creatinine Ratio 36.0 H Glucose 120 H Calcium 7.9 L Total Bilirubin AST ALT Alkaline Phosphatase Total Protein Albumin Globulin Albumin/Globulin Ratio Lipase Urine Color Urine Clarity Urine pH Ur Specific [place] Urine Protein Urine Glucose (UA) Urine Ketones Urine Occult Blood Urine Nitrite Urine Bilirubin Urine Urobilinogen Ur Leukocyte Esterase Urine RBC Urine WBC Ur Squamous Epith Cells Urine Bacteria Hyaline Casts Urine Mucus Medical Necessity - Tobacco Use Smoking Status: Never smoker Assessment/Plan recurring small bowel obstruction, multiple previous surgical procedures, complicated prior small bowel lysis of adhesions Currently the patient is doing well clinically with a normal white blood cell count no peritoneal signs and a relatively soft abdomen. We will plan for conservative management with IV fluids, NG to suction and serial examinations. Discussed with the the surgical intervention again may be necessary given the fact there appeared to be some area of tethering on the CT scan but without more ominous signs. We will plan for conservative measures at this time. KUB this morning demonstrated improved bowel gas pattern and patient notes more flatus. Will plan to observe and repeat KUB in AM appreciated medical assistance with the patient's colon but is of prior myocardial infarction, hypertension, atrial fibrillation, and diabetes.
[2019-02-08] MEDS: Aspirin 81 MG TAB.CHEW PO (09:02)
[2019-02-08] MEDS: Metoprolol Tartrate 50 MG Tablet PO ×2 (09:02→21:48)
[2019-02-08] MEDS: amLODIPine 5 MG Tablet PO (09:03)
--- NOTE | 2019-02-08 11:13 | PN_ITS ---
Subjective: Hospitalist consult note The patient is an 83-year-old male with a past medical history of CAD, hypertension, hyperlipidemia, PAF, diabetes mellitus type 2 and obesity who was admitted to the hospital by Dr. Osuna on 02/07/2019 for recurring small bowel obstruction in a patient with multiple previous surgical procedures. The hospitalist service was consulted to manage his medical comorbidities. He had a cardiac catheterization in May 2018 that showed triple-vessel coronary artery disease with widely patent grafts x4. The left ventricular ejection fraction at that time was 65% and there was normal left ventricular wall motion. All events of the past 24 hours been reviewed. He has been afebrile since admission. Vital signs are stable. He is 97% saturated on room air. Fluid balance since admission is +1511 and he remains n.p.o. All lab was personally reviewed. White blood cell count is 6.0 with a normal differential today. Hemoglobin is 12.4 with an MCV of 101. Platelets are low at 130,000. BUN is 34 with a creatinine of 0.94, down from 1.14 at admission. Random blood sugar was 191 at admission and the fasting this morning was 120. Hemoglobin A1c was 7.4% in October 2018. He was on no medications for DM as an OP. Oral medications have been administered including beta-gabriella, aspirin, atorvastatin, amlodipine. He denies chest pain and palpitations. He does complain of shortness of breath when he is lying down but has no shortness of breath when ambulating in the natarajan. He is not coughing. He denies nausea and also denies abdominal pain at this time. He is passing flatus but has not had a bowel movement. I reviewed Dr. Osuna's note and the plan is to continue NG tube and repeat KUB in the a.m. and continue n.p.o. status. - Physical Exam General: Alert, Oriented x3, Cooperative, No apparent distress, Well developed, Well nourished HEENT: Atraumatic, PERRLA, EOMI, Normocephalic Oral: Moist Mucosa Neck: Supple, No JVD, Negative Carotid Bruits Lungs: Clear to auscultation, Normal air movement, No rhonchi, No wheeze, No rales Cardiovascular: Regular rate, Regular Rhythm, Normal S1, Normal S2, No Gallop Abdomen: Soft, Non-Distended, Hypoactive Bowel Sounds, Tender - Mild tenderness in the left lower quadrant but no guarding with palpation Extremities: No edema, Capillary Refill Less than 3 Seconds, No Calf Tenderness, Peripheral Pulses Normal - The dorsalis pedis pulses bilaterally are 2+-3+. Skin: No rashes, No breakdown Musculoskeletal: No Tenderness to Palpation of Joints or Extremities Neurological: Cranial nerves II-XII grossly intact Psych/Mental Status: Normal Affect, Appropriate Vital Signs Temp Pulse Resp BP Pulse Ox 97.9 F 67 16 139/68 H 97 02/08/19 08:50 02/08/19 09:02 02/08/19 08:50 02/08/19 08:50 02/08/19 08:50 Oxygen Delivery Method Room Air Weight: 237 lb 7.005 oz Body Mass Index (BMI) 33.1 Intake and Output for Last 24 Hours 02/06/19 02/07/19 02/08/19 22:59 23:59 23:59 Intake Total 1822 / 1822 Output Total 500 / 500 Balance 1322 / 1322 Laboratory Tests Past 24 Hrs 02/07/19 02/08/19 02/08/19 11:06 04:56 04:56 WBC 6.0 RBC 3.89 L Hgb 12.4 L Hct 39.3 L MCV 101.0 H MCH 31.9 MCHC 31.6 L RDW 14.1 RDW Differential 51.1 H Plt Count 130 L MPV 11.0 Immature Gran % (Auto) 0.200 Neut % (Auto) 58.3 Lymph % (Auto) 24.9 [place] % (Auto) 14.2 H Eos % (Auto) 2.2 Baso % (Auto) 0.2 Absolute Neuts (auto) 3.5 Absolute Lymphs (auto) 1.49 Total Counted Not Reportable Sodium 142 Potassium 3.9 Chloride 109 H Carbon Dioxide 25.0 Anion Gap 8 BUN 34 H Creatinine 0.94 Estim Creat Clear Calc 63.42 Est GFR (MDRD) Af Amer 98 Est GFR (MDRD) Non-Af 81 BUN/Creatinine Ratio 36.0 H Glucose 120 H Calcium 7.9 L Urine Color Yellow Urine Clarity Sl. Cloudy Urine pH 5.0 Ur Specific [place] 1.025 Urine Protein 30 H Urine Glucose (UA) Normal Urine Ketones 15 H Urine Occult Blood Negative Urine Nitrite Negative Urine Bilirubin 1 H Urine Urobilinogen 1 H Ur Leukocyte Esterase 25 H Urine RBC 0 SEEN Urine WBC 0-5 SEEN Ur Squamous Epith Cells 0-5 SEEN Urine Bacteria 1+ Hyaline Casts 0-5 SEEN Urine Mucus 2+ Medical Necessity - Tobacco Use Smoking Status: Never smoker Assessment/Plan Impressions 1. Small bowel obstruction 2. Coronary artery disease with history of CABG x4 vessels 3. Hypertension 4. Hyperlipidemia 5. Diabetes mellitus type 2-diet controlled with hemoglobin A1c of 7.4% in October 2018. Check a mag and HGBA1C Accuchecks q 6 H with SSI coverage Continue current IV orders Pt is unaware that he is diabetic.....tells me that he eats healthy and likes salads....the relations liaison has seen him but, because he is NPO and not for instruction in a Carb controlled diet. Code Visit Inpatient E&M: 95820 Subs Hosp L2
[2019-02-08 11:35] LABS: Magnesium 2.1 mg/dL (1.6-2.6)
[2019-02-08 13:01] LABS: Bedside Glucose 112 mg/dL (70-110)
--- NOTE | 2019-02-08 16:03 | NURSING ---
daughter Jeanette requested that if for any reason we needed to notify family, that we call her first. she is listed as person to notify and is next of kin. she stated that pt Idalia, doesn't drive well at night but has a small amount of dementia and will take off and drive on her own
[2019-02-08 18:26] LABS: Bedside Glucose 106 mg/dL (70-110)
[2019-02-08] MEDS: Atorvastatin Calcium 40 MG Tablet PO (21:48)
[2019-02-09] VITALS (7 sets, daily range): BP systolic 138–143; BP diastolic 62–72; PULSE 60–80; RESP 16–18; TEMP 36.6–36.8; O2SAT 95–98
[2019-02-09 01:36] LABS: Bedside Glucose 84 mg/dL (70-110)
--- NOTE | 2019-02-09 05:00 | RAD_ITS ---
STUDY: X-RAY - ABDOMEN/PELVIS REASON FOR EXAM: Male, 83 years old. Small bowel obstruction TECHNIQUE: 3 views COMPARISON: 02/08/2019 FINDINGS: Normal visualized lung bases. There is an unremarkable bowel gas pattern. There is no demonstrated free abdominal air. The visualized liver, spleen and kidneys are grossly normal in size and morphology. Normal soft tissue structures. Normal visualized osseous structures. There is an NG tube at the gastroesophageal junction. RAD/Abd Inc Decub and/or Erect IMPRESSION: Bowel gas pattern is within normal limits. Electronically Signed: Keith Burroughs MD at 5:51 EDT , Service support ,
[2019-02-09] MEDS: Heparin Injection (Vial) 5,000 UNIT/ML VIAL 5000 UNIT SC ×2 (05:38→14:08)
[2019-02-09 06:21] LABS: Absolute Lymphocyte Count 1.51 X10^3/ul (0.83-4.51); Absolute Neutrophil Count 3.5 X10^3/uL (2.0-7.7); Basophil# 0.02 X10^3/uL; Basophil% 0.3 % (0-1); Eosinophil# 0.19 X10^3/uL; Eosinophils% 3.2 % (0-5); Hematocrit 37.7 % (40-54); Hemoglobin 11.8 g/dl (13.0-16.5); Lymphocyte # 1.51 X10^3/ul (4.0); Lymphocyte % 25.4 % (19-41); Mean Corp Hgb Conc 31.3 g/gl (32-36); Mean Corpuscular Hgb 31.6 pg (27.0-32.0); Mean Corpuscular Volume 100.8 fL (80-94); Mean Platelet Vol. 10.8 fl (6.2-12.0); Monocyte% 11.8 % (0-10); Neutrophil # 3.51 X10^3/uL (2.7-7.7); Neutrophil % 59.1 % (47-70); Platelet Count 123 K/mm3 (150-450); RBC Distribution Width CV 13.8 % (11.6-14.6); RBC Distribution Width SD 49.8 fl (35.1-43.9); Red Blood Count 3.74 M/mm3 (4.6-6.2); White Blood Count 5.9 K/mm3 (4.4-11.0)
[2019-02-09 06:38] LABS: Anion Gap 10 (5-15); BUN 25 mg/dL (7-18); BUN/Creat Ratio 28.2 RATIO (10-20); Calcium,Total 7.7 mg/dL (8.5-10.1); Chloride 109 mmol/L (98-107); Creatinine, Serum 0.89 mg/dL (0.70-1.30); EST Glomerular Filtration Rate 87 mL/min (>60); Est Glom Filt Rate - Afr Amer 105 mL/min (>60); Estimated Creatinine Clearance 66.98 ml/min; Glucose 91 mg/dL (74-106); Potassium 3.7 mmol/L (3.5-5.1); Sodium Level 144 mmol/L (136-145)
[2019-02-09 06:46] LABS: POSITIVE COUNT NO; POSITIVE DIFFERENTIAL NO; POSITIVE MORPHOLOGY NO
[2019-02-09 06:55] LABS: Bedside Glucose 92 mg/dL (70-110)
[2019-02-09] MEDS: amLODIPine 5 MG Tablet PO (08:22)
[2019-02-09] MEDS: Metoprolol Tartrate 50 MG Tablet PO (08:22)
[2019-02-09] MEDS: Aspirin 81 MG TAB.CHEW PO (08:22)
[2019-02-09 12:05] LABS: Bedside Glucose 122 mg/dL (70-110)
--- NOTE | 2019-02-09 12:25 | PCM.PROGNOTE ---
Subjective: All events of the past 24 hours of been reviewed. Afebrile since admission Vital signs are stable 96% on room air All lab was personally reviewed. Hemoglobin is 11.8 today. White blood cell count is within normal limits at 5.9 with an unremarkable differential. Potassium is 3.7 and the BUN is 25 (down from 30 at admission) with a creatinine of 0.89 (down from 1.14 at admission). Blood sugars have been well controlled. Hemoglobin A1c is 7%. The NG tube was removed today and the patient has been started on clear liquids. He is tolerating clear liquids without nausea, vomiting, increased abdominal pain. He is passing gas and he has had bowel movements this a.m. He denies chest pain, shortness of breath, palpitations He has been seen by the dietitian today who counseled him on appropriate carbohydrate control since he does have diabetes mellitus type 2 - Physical Exam General: Alert, Oriented x3, Cooperative, No apparent distress, - - Sitting up in a chair HEENT: Atraumatic, PERRLA, EOMI Oral: Moist Mucosa Neck: Supple, No Nodes, Trachea Midline Lungs: Clear to auscultation, Normal air movement Cardiovascular: Regular rate, Regular Rhythm, Normal S1, Normal S2, No rub noted, No Gallop Abdomen: Bowel Sounds Present, Soft, Non Tender, Non-Distended Extremities: No clubbing, No cyanosis, No edema Skin: No rashes, No breakdown Neurological: Cranial nerves II-XII grossly intact, Neuro grossly intact Psych/Mental Status: Normal Affect, Appropriate Vital Signs Temp Pulse Resp BP Pulse Ox 97.8 F 80 18 138/62 H 96 02/09/19 08:20 02/09/19 08:36 02/09/19 08:20 02/09/19 08:20 02/09/19 08:20 Oxygen Delivery Method Room Air Weight: 237 lb 7.005 oz Body Mass Index (BMI) 33.1 Intake and Output for Last 24 Hours 02/07/19 02/08/19 02/09/19 23:59 23:59 23:59 Intake Total 2837 / 2837 2411 / 2411 Output Total 900 / 900 125 / 125 Balance 1937 / 1937 2286 / 2286 Laboratory Tests Past 24 Hrs 02/08/19 02/09/19 02/09/19 04:56 05:35 05:35 WBC 5.9 RBC 3.74 L Hgb 11.8 L Hct 37.7 L MCV 100.8 H MCH 31.6 MCHC 31.3 L RDW 13.8 RDW Differential 49.8 H Plt Count 123 L MPV 10.8 Immature Gran % (Auto) 0.200 Neut % (Auto) 59.1 Lymph % (Auto) 25.4 [place] % (Auto) 11.8 H Eos % (Auto) 3.2 Baso % (Auto) 0.3 Absolute Neuts (auto) 3.5 Absolute Lymphs (auto) 1.51 Total Counted Not Reportable Sodium 144 Potassium 3.7 Chloride 109 H Carbon Dioxide 25.0 Anion Gap 10 BUN 25 H Creatinine 0.89 Estim Creat Clear Calc 66.98 Est GFR (MDRD) Af Amer 105 Est GFR (MDRD) Non-Af 87 BUN/Creatinine Ratio 28.2 H Glucose 91 Hemoglobin A1c 7.0 H Calcium 7.7 L POC Glucose 02/09/19 02/09/19 02/09/19 11:39 06:49 01:33 POC Glucose 122 H 92 84 02/08/19 02/08/19 18:10 12:54 POC Glucose 106 112 H Medical Necessity - Tobacco Use Smoking Status: Never smoker Assessment/Plan Impressions 1. Small bowel obstruction been resolved 2. Coronary artery disease with history of CABG x4 vessels 3. Hypertension 4. Hyperlipidemia 5. Diabetes mellitus type 2-diet controlled with hemoglobin A1c of 7.4% in October 2018 and current hemoglobin A1c of 7% Sent Dr. Francois a text asking if he could be advanced to full liquids and if he tolerates this will likely be able to be discharged later today Code Visit Inpatient E&M: 20554 Subs Hosp L1
--- NOTE | 2019-02-09 14:23 | DCINST_ITS ---
You will use the following diet at home:: Other - clear liquids until bowel function normalizes Discharge Activity: May Shower Allergies/Adverse Reactions: Allergies Sulfa (Sulfonamide Antibiotics) Allergy (Verified 02/07/19 09:00) itching, headache Medications to take at Discharge Aspirin [Aspirin, Baby] 81 mg PO DAILY@0800 11/29/14 Nitroglycerin [Nitrostat] 0.4 mg SUBLINGUAL Q5M PRN 11/29/14 Pantoprazole Sodium [Protonix] 40 mg PO DAILY 04/09/17 amlodipine 5 mg tablet 5 mg PO QDAY tab 05/12/18 metoprolol tartrate 50 mg tablet 50 mg PO BID #180 tab 07/15/18 ramipril 10 mg capsule 10 mg PO BID #180 cap 07/15/18 hydrochlorothiazide 25 mg tablet 25 mg PO QAM #90 tab 09/03/18 Rosuvastatin Calcium [Crestor] 20 mg PO QHS 02/07/19 Primary Care Physician: Saul Graay MD [Primary Care Provider] - Test Results: Test results from this visit will be discussed in further detail at your follow- up appointment, if applicable. Please Follow Up With: Cresencio Francois MD When: 1-2 weeks
--- NOTE | 2019-02-09 18:31 | DS.PCM_ITS ---
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 The patient undergone a protracted exploratory laparotomy with lysis of adhesions proximal to 4 years previously. The patient has intermittent bowel obstructions infrequently. He returns this time with a one-week history of vague discomfort culminating in 2 days of nausea vomiting and decreased stool output prior to admission. The patient was managed conservatively with NG tube placement and IV fluid hydration. The patient actually had relatively rapid return of bowel function and flatus along with improving abdominal x-ray. The nasogastric tube was removed. The patient was started on clear liquids and asked to be discharged to home. - Physical Exam General: Alert, Oriented x3, Cooperative Lungs: Clear to auscultation, Normal air movement Cardiovascular: Regular rate, No murmurs Abdomen: Bowel Sounds Present, Soft, Non Tender Vital Signs Temp Pulse Resp BP Pulse Ox 98.1 F 61 18 143/65 H 95 02/09/19 14:06 02/09/19 14:06 02/09/19 14:06 02/09/19 14:06 02/09/19 14:06 Oxygen Delivery Method Room Air Weight: 107.7 kg Body Mass Index (BMI) 33.1 Intake and Output for Last 24 Hours 02/07/19 02/08/19 02/09/19 23:59 23:59 23:59 Intake Total 2837 / 2837 2411 / 2411 Output Total 900 / 900 125 / 125 Balance 1937 / 1937 2286 / 2286 Laboratory Tests Past 24 Hrs 02/09/19 02/09/19 05:35 05:35 WBC 5.9 RBC 3.74 L Hgb 11.8 L Hct 37.7 L MCV 100.8 H MCH 31.6 MCHC 31.3 L RDW 13.8 RDW Differential 49.8 H Plt Count 123 L MPV 10.8 Immature Gran % (Auto) 0.200 Neut % (Auto) 59.1 Lymph % (Auto) 25.4 Howard % (Auto) 11.8 H Eos % (Auto) 3.2 Baso % (Auto) 0.3 Absolute Neuts (auto) 3.5 Absolute Lymphs (auto) 1.51 Total Counted Not Reportable Sodium 144 Potassium 3.7 Chloride 109 H Carbon Dioxide 25.0 Anion Gap 10 BUN 25 H Creatinine 0.89 Estim Creat Clear Calc 66.98 Est GFR (MDRD) Af Amer 105 Est GFR (MDRD) Non-Af 87 BUN/Creatinine Ratio 28.2 H Glucose 91 Calcium 7.7 L POC Glucose 02/09/19 02/09/19 02/09/19 11:39 06:49 01:33 POC Glucose 122 H 92 84 Discharge Activity: May Shower Home Medications: Medications to take at Discharge Aspirin [Aspirin, Baby] 81 mg PO DAILY@0800 11/29/14 Nitroglycerin [Nitrostat] 0.4 mg SUBLINGUAL Q5M PRN 11/29/14 Pantoprazole Sodium [Protonix] 40 mg PO DAILY 04/09/17 amlodipine 5 mg tablet 5 mg PO QDAY tab 05/12/18 metoprolol tartrate 50 mg tablet 50 mg PO BID #180 tab 07/15/18 ramipril 10 mg capsule 10 mg PO BID #180 cap 07/15/18 hydrochlorothiazide 25 mg tablet 25 mg PO QAM #90 tab 09/03/18 Rosuvastatin Calcium [Crestor] 20 mg PO QHS 02/07/19 Primary Care Physician: Saul Garay MD [Primary Care Provider] - Please Follow Up With: Cresencio Francois MD When: 1-2 weeks Medical Necessity - Tobacco Use Smoking Status: Never smoker Meaningful Use Info Meaningful Use Diagnoses (Choose all that apply): None applicable
== END 2019-02-09 14:55 | disposition home or self-care (01) | DRG 390 ==
LOC: ED 13:15 → MS2 13:21
PROVIDERS: Internal Medicine; Admitting Provider Surgery; Emergency Provider Emergency Medicine; Family Provider Family Medicine; PCP Family Medicine; Referring Provider Surgery; Visit Provider Internal Medicine
DX: K56.609 Unspecified intestinal obstruction, unspecified as to partial versus complete obstruction (principal); I25.10 Atherosclerotic heart disease of native coronary artery without angina pectoris; E78.5 Hyperlipidemia, unspecified; Z85.038 Personal history of other malignant neoplasm of large intestine; I10 Essential (primary) hypertension; E11.9 Type 2 diabetes mellitus without complications; I25.2 Old myocardial infarction; Z90.49 Acquired absence of other specified parts of digestive tract; Z95.1 Presence of aortocoronary bypass graft
CPT/HCPCS: 36415; 74018; 74019; 74176; 80048; 80053; 80061; 80076; 81001; 82962; 83036; 83690; 83735; 85025; 99284; J7030; A4216; J2405

== ENCOUNTER 2019-02-10 21:19 | Emergency (ER) | payer MEDICARE, SELFPAY ==
[2019-02-07 13:49] VITALS: BMI 33.1
[2019-02-10 21:21] VITALS: BP 162/70; PULSE 67; RESP 17; TEMP 36.9; O2SAT 95; BMI 32.8
--- NOTE | 2019-02-10 23:51 | ED.VISSUMM ---
- ER Visit Summary Date of Service: 02/10/19 Chief Complaint: Neck pain History of Present Illness: The patient is a 83 M who presents with back pain. It began while in the hospital. He was recently admitted for small bowel obstruction. He complains of throbbing pain at the upper neck more so on the right side. He notes it got worse after a nurse had rolled up blanket and placed behind his neck which he states was very hard. He states the bed was very uncomfortable. He denies any numbness tingling or weakness. Although the triage note had reported arm weakness this is actually limited ability to reach above his head because of pain. He tried Advil at home with little relief. He complains of a slight pressure in his head which he states really is not even painful. Was no fall or injury. No history of prior neck pain. Physical Examination: Afebrile vitals unremarkable Moist mucous membranes Heart regular rate and rhythm Lungs clear Patient has tenderness and muscle spasm along the muscles of the posterior right neck no midline tenderness Test Results: Not indicated Emergency Department Course and Treatment: Patient presents with muscle spasm and strain of his neck. He was given tramadol here. He was advised on supportive care. He understands return for new or worsening symptoms and otherwise to follow-up as an outpatient and was discharged home. Treatment Plan: [] Disposition: Discharge Impression: Neck muscle spasm This note was generated with Recombine dictation software. It may contain incorrect words, spelling, and punctuation that were not noted in review of the chart prior to signing ED Disposition - Plan for ED Patient: Instructions: ED Spasm Neck No Injury Prescriptions: traMADol [Ultram] 50 mg PO Q6H PRN 3 Days #12 tab PRN Reason: Pain Referrals: Saul Garay MD [Primary Care Provider] -
[2019-02-11] MEDS: traMADol 50 MG Tablet PO (00:18)
[2019-02-11 00:23] VITALS: BP 158/68; PULSE 72; RESP 16; O2SAT 98
== END 2019-02-11 00:24 | disposition home or self-care (01) ==
PROVIDERS: Emergency Provider Emergency Medicine; Family Provider Family Medicine; PCP Family Medicine
DX: M62.838 Other muscle spasm (principal); R11.2 Nausea with vomiting, unspecified; R10.9 Unspecified abdominal pain; R51 Headache; I10 Essential (primary) hypertension; E78.00 Pure hypercholesterolemia, unspecified; K21.9 Gastro-esophageal reflux disease without esophagitis; I25.10 Atherosclerotic heart disease of native coronary artery without angina pectoris; Z95.1 Presence of aortocoronary bypass graft
CPT/HCPCS: 99282

== ENCOUNTER 2019-02-22 11:04 | Day surgery (SDC) | payer MEDICARE, SELFPAY ==
--- NOTE | 2019-02-18 17:53 | PCM.HP.BLA ---
History and Physical Date of Admission: 02/22/19 Romario Lara a 83 year old male who is self referred for colorectal cancer screening. His PCP is reported to be Dr. Saul Garay. He tells me that he had his last check up last month. ? The patient has a history of heart disease. His last stress test was in early 2016. He tells me that he saw NOAH Choi, at [facility], in July. ?We called for a copy of that encounter. ? Office encounter from 07/15/18 received and reviewed. It was reported that a stress echocardiogram in May 2018 was positive for anteroseptal ischemia. ? Heart cath following abnormal stress test demonstrated triple vessel CAD of the LM, LAD, LCX and RCA. Widely patent SVG to RCA. Widely patent SVG to OM. Widely patent SVG to DIAG. Recommendations: Risk factor modification, ASA indefinitely, management per referring associate professor of sociology, continue Plavix for graft preservation. ? [facility] plan: 1. Atherosclerosis of coronary artery bypass graft of [place] heart without angina: Stable, from a cardiac standpoint patient doesn't have any symptoms of angina. ?We recommend that they continue with current aggressive medical management and risk factor modification. 2. Essential hypertension: Blood pressure is well controlled on current medications, we do not recommend any changes at this time. 3. Pure hypercholesterolemia: Will not make any adjustments. 4. Paroxysmal atrial fibrillation:Patient has not had any further recurrence. Will continue to monitor closely. if he has any recurrence may need to reconsider anticoagulation. ? The patient has follow up with the [facility] on 02/19/19 @ 10:30.? The patient has a very complex past surgical history. 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 ?He then had colostomy takedown. ?He developed a recurrent hernia at the?colostomy site and this was repaired with [place]-R[place] mesh. ? ? Dr. Diaz performed incision and drainage of the abdominal wall abscess on June 06, 2008 ??The site has chronically drained. ? Dr. Francois performed a wound exploration with removal of gortex mesh on August 04, 2008. ? ? The patient was seen by Dr. Diaz for colonoscopy 04/19/13. ?The procedure report has been reviewed and findings as follows: OPERATIVE FINDINGS: 1. ?Cecum: ?Normal in appearance. ?No mass or lesions. ?Normal ileocecal valve. ?2. ??Ascending ?colon: ?Two small hyperplastic polyps, sutured removed ?with ?biopsy ?forceps, ?and ?sent to Pathology for permanent sectioning. ?Rest ?of ?the ?ascending colon was normal. 3. ??Transverse colon: ?Small hyperplastic polyp identified and removed with ?biopsy ?forceps. ?Rest of the transverse colon was within normal limits. ?4. ?Descending colon: ?Normal in appearance. ?No mass or lesions. ?5. ?Anastomosis: ?Normal in appearance. ?No mass or lesions. ?6. ??Rectum: ??Normal in appearance. ?No mass or lesions. ?Few internal hemorrhoids. ?The scope was withdrawn ensuring no masses within the rectum. ? FINAL DIAGNOSIS 1. Ascending colon polyps, polypectomies (A) - Multiple fragments of tubular adenoma. 2. Transverse colon polyp, polypectomy (B) - Tubular adenoma. ? ? Dr. Francois performed an urgent open left inguinal hernia repair with mesh on 08/23/2015 placing in open fashion a larger Bard 3-D max mesh to cover the sites of his recurrent defect. ?The patient did quite well postoperatively had no concerns of infection or complaints in his left inguinal area. ? The patient had 4 hospitalizations for small bowel obstruction between 08/2015 and 07/2016. ?They resolved with conservative management. ? On 07/01/16 Dr. Francois performed laparoscopic lysis of adhesions to the midline abdomen from the umbilicus down, adhesions in the pelvis,interloop adhesions and adhesions from the cecum and descending and sigmoid colon. ? ? Most recently, the patient was at [facility] for SBO 02/07- 02/08.??When asked what symptoms he had that prompted the visit, he tells me my stomach started hurting like crazy and I was afraid it was the scar tissue, so I went to the hospital. ?Dr. Francois was consulted and followed through discharge. ?The SBO resolved quickly with conservative treatment and patient recovered quickly.?02/09/19?02/09/19 ?05:35???05:35 WBC?5.9? RBC?3.74 L? Hgb?11.8 L? Hct?37.7 L? MCV?100.8 H? MCH?31.6? MCHC??31.3 L? RDW?13.8? RDW Differential?49.8 H? Plt Count?123 L?? MPV?10.8? Immature Gran % (Auto)?0.200?? Neut % (Auto)??59.1? Lymph % (Auto)?25.4? Charles % (Auto)?11.8 H? Eos % (Auto)?3.2? Baso % (Auto)??0.3? Absolute Neuts (auto)??3.5? Absolute Lymphs (auto)?1.51? Total Counted??Not Reportable? Sodium?144 Potassium?3.7 Chloride?109 H Carbon Dioxide?25.0 Anion Gap?10 BUN?25 H Creatinine?0.89 Estim Creat Clear Calc?66.98 Est GFR (MDRD) Af Amer?105 Est GFR (MDRD) Non-Af?87 BUN/Creatinine Ratio?28.2 H Glucose?91 Calcium?7.7 L ? Presenting complaint:?The patient presents today reporting a?half way decent bowel movement twice a day. ?He describes the?stools as?soft compacted.?Taking Miralax?about every other day. ?No blood or black stool. He denies any abdominal pain.? ? Taking pantoprazole daily.??Dr. Garay?prescribed that. He denies heartburn or indigestion as long as he takes it?nearly every day. No nausea or vomiting. ?No dysphagia. ? Review of Systems:?PAIN ASSESSMENT:?Negative for pain, history of chronic pain, or current treatment for a chronic pain condition. GENERAL:?No weight loss, malaise or fevers. HEENT:?Negative for frequent or significant headaches, No changes in hearing or vision, no nose bleeds or other nasal problems NECK:?Positive neck stiffness since hospitalzation - related to sleeping on a rolled blanket. (eval in ED the day following discharge) ?Negative for goiter, pain or significant neck swelling RESPIRATORY:?Negative for cough, hemoptysis, wheezing, COPD, dyspnea or shortness of breath CARDIOVASCULAR:?Negative for chest pain, leg swelling, hypertension, CHF or palpitations. Seeing the [facility] 02/19/19 for routine follow up. GI:?No nausea, vomiting, or diarrhea. No constipation. ?No dysphagia or odynophagia. :?No history of dysuria, frequency or incontinence MUSCULOSKELETAL:?Negative for?new or worsening?joint pain or swelling, back pain or muscle pain, other than reported above. SKIN:?Negative for lesions, rash, and itching. PSYCH:?Negative for sleep disturbance, mood disorder and recent psychosocial stressors. HEMATOLOGY/LYMPHOLOGY:?Negative for prolonged bleeding, bruising easily or swollen nodes. ENDOCRINE:?Negative for cold or heat intolerance, polyuria or polydipsia. NEURO:??No history of headaches, syncope, paralysis, seizures or tremors The remainder of the review of systems is negative. ? ? PAST?MEDICAL?HISTORY PAST MEDICAL HISTORY Diagnosis Date ? Acute myocardial infarction of other specified sites, episode of care unspecified 2006 ? Myocardial Infarction ? Cellulitis and abscess of trunk ? ? abdominal wall, LLQ ? Fever and other physiologic disturbances of temperature regulation ? ? HTN (hypertension) ? ? Infection and inflammatory reaction due to other internal prosthetic device, implant, and graft ? ? Infected Gortex - left groin ? Malignant neoplasm of colon, unspecified site 1991 ? Colon cancer ? Other malignant neoplasm of skin, site unspecified ? ? face ? ? PAST?SURGICAL?HISTORY PAST SURGICAL HISTORY Procedure Laterality Date ? CABG (4) VEIN GRAFTS & ARTERIAL GRAFT(S) ? 2001 ? COLONOSCOPY W/BX ? 04-19-13 ? ? ? COLOSTOMY ? ? ? takedown ? I & D ABSCESS, SINGLE ? 06/06/08 ? abd wall,LLQ ? I & D, COMP POSTOP INFECTION ? 08/04/2008 ? LAP, SURG ENTEROLYSIS ? 07/01/16 ? 3 hour ABHIJEET ? PART REMOVAL COLON W ANASTOMOSIS ? ? ? sigmoid ? REMOVE MESH FROM ABD WALL ? 08/04/2008 ? Left Inguinal ? REPAIR ING HERNIA,5+Y/O,REDUCIBL ? ? ? Hernia repair, inguinal, ? REPAIR ING HERNIA,5+Y/O,REDUCIBL ? ? ? Hernia repair, inguinal ? REPAIR ING HERNIA,5+Y/O,REDUCIBL ? ? ? Hernia repair, inguinal ? REPAIR ING HERNIA,5+Y/O,REDUCIBL ? ? ? Hernia repair, inguinal ? REPAIR ING HERNIA,5+Y/O,REDUCIBL ? ? ? Hernia repair, inguinal ? REPAIR RECURR INGUIN KENDRICK,KARL ? 08/23/15 ? left - 4th recurrence.... ? ? FAMILY?HISTORY FAMILY HISTORY Problem Relation Age of Onset ? Cancer Maternal Grandmother ?skin ? Hypertension Mother ? ? Stroke Mother ? ? Colon Cancer Mother ? ? Colon Cancer Brother ? ? ? CURRENT?MEDICATIONS ? Current Outpatient Medications: amLODIPine (NORVASC) 5 mg tablet Take 5 mg by mouth once daily. Disp: Rfl: rosuvastatin (CRESTOR) 20 mg tablet ? Disp: Rfl: metoprolol tartrate, short acting, (LOPRESSOR) 50 mg tablet Take 50 mg by mouth twice daily. Disp: Rfl: nitroglycerin sublingual (NITROSTAT) 0.4 mg SL tablet Dissolve 0.4 mg under the tongue every 5 minutes as needed. Disp: Rfl: ramipril (ALTACE) 10 mg capsule Take 10 mg by mouth twice daily. Disp: Rfl: pantoprazole DR (PROTONIX) 40 mg tablet Take 40 mg by mouth once daily. Disp: Rfl: hydrochlorothiazide (HYDRODIURIL, ESIDRIX) 12.5 mg tablet Take 25 mg by mouth once daily. Disp: Rfl: polyethylene glycol 3350 (MIRALAX) 17 gram/dose powder Take by mouth once daily. as needed Disp: Rfl: aspirin, enteric coated (ASPIR-LOW) 81 mg ORAL TbEC Take one(1) tablet daily. Disp: Rfl: 0 ? No current facility-administered medications for this visit.? ? ? SOCIAL HISTORY: Patient is . He has never smoked and reports his alcohol use as never. ? ? PHYSICAL EXAMINATION: Blood pressure 130/63, pulse 73, height 180.3 cm (5' 11), weight 108 kg (238 lb). General Appearance: Well appearing, alert, in no acute distress, well-hydrated, well nourished. Head: Normocephalic, no masses, lesions or abnormalities. Eyes: Anicteric sclera. ?Extraocular movements are intact. Oropharynx: Dentures. Lips, mucosa, and tongue and oropharynx normal. Neck: Supple, no adenopathy; thyroid symmetric, normal size. Lungs:?Lungs clear to auscultation. No wheezing, rhonchi, rales. Heart: RRR without murmur. Abdomen: Abdomen soft, rounded. Non-tender. Bowel sounds normal. No masses, organomegaly. Extremities: Bilateral lower extremity edema. Peripheral Pulses: Normal. Neurologic: Gait normal?- uses a cane. Sensation grossly intact. ? ? Impression:?anemia ?2)history of polyps??3)GERD Recent SBO.? ? ? Plan: The patient will be scheduled for an upper endoscopy and?colonoscopy, with MAC.??Friday, February 22.??He tells me that he feels fine and should be able to handle the prep without issue.?Preparation for the procedures, using GoLytely as the laxative, have been explained in detail. ?The risks, benefits, anticipated outcomes and possible complications were mentioned. I explained the procedure in understandable terms and the patient was given printed material concerning the planned procedure. The patient had the opportunity to ask questions concerning the planned procedure. The patient freely consents to the planned procedure. ? ? The patient is encouraged to call with any questions or concerns, or should there be any change ?in health status between now and the scheduled procedure. ? I have personally interviewed and examined this patient. ?I have read the information that the EDITORIAL SPECIALIST documented in this encounter. I spent 30 minutes in the visit, with more than 50% of the total [id number] time of the visit in counseling / coordination of care. ?? Bárbara ?Meagan Hernandez RN [employer].ARCHITECTURAL RENDERER
[2019-02-22 11:33] VITALS: BP 109/74; PULSE 71; RESP 18; TEMP 36.7; O2SAT 98; BMI 30.8
--- NOTE | 2019-02-22 12:00 | IMM_PTH ---
PATIENT: SILVINO FERRERA LOC: EN U#:[id number] AGE/SX: 84/M ROOM: RE02/22/[address]: Dr. Cresencio Francois MD : 1935 BED: DIS: 02/22/2019 SPEC #: [id number] RECD: 02/23/19 09:32 STATUS: LORRIE GOGO #: [id number] YOUSIF: 02/22/19 12:[address]: Cresencio Francois DEPT: IMMUNOHISTOCHEMISTRY RECD BY: Elizabeth Joel ENTERED: 02/23/19 09:33 SP TYPE: IMMUNO OTHR DR: Dr. Saul Garay MD Tissues: A - Stomach, NOS G - Gastric mucous membrane Procedures: H Pylori (initial) P53 (initial) PHYSICIAN & INSTITUTION [place] [id number] SPECIMEN INFORMATION: Tissue Source: A - Gastric antrum biopsy, B - GE junction biopsy Clinical Info: GERD, anemia, history colon polyps Specimen Number: [id number] A & B CPT code: 23870 x2 METHODOLOGY: Deparaffinized sections of prefer/formalin-fixed tissue or PAP/DQ stained slides are incubated with monoclonal/polyclonal antibodies/oligonucleotide probes. Localization is made via biotin free immunoperoxidase method. Appropriate controls are performed and reacted as expected. Results on target cell population are indicated in the following table: RESULTS: ANTIBODY / CLONE RESULT Block A H Pylori (polyclonal) negative Block B P53 (DO-7) These tests were developed and their performance characteristics determined by [facility]. They may not have been cleared or approved by the U.S. Food and Drug Administration. The FDA has determined that such clearance or approval is not necessary. INTERPRETATION: A. Gastric antrum, biopsy: Negative for Helicobacter pylori organisms. B. GE junction, biopsy: AM:raquel 02/24/19
--- NOTE | 2019-02-22 12:00 | EGD_PTH ---
PATIENT: SILVINO FERRERA LOC: EN U#:[id number] AGE/SX: 84/M ROOM: RE02/22/[address]: Dr. Cresencio Francois MD : 1935 BED: DIS: 02/22/2019 SPEC #: [id number] RECD: 02/22/19 14:29 STATUS: LORRIE GOGO #: [id number] YOUSIF: 02/22/19 12:[address]: Cresencio Francois DEPT: SURGICAL PATHOLOGY RECD BY: Hemant Chau ENTERED: 02/23/19 11:19 SP TYPE: EGD BIOPSY OT DR: Dr. Saul Garay MD Tissues: A - Gastric mucous membrane B - Gastric mucous membrane C - POLYP Procedures: Special Stain Group II Surgery Specimen Level IV Alcian Blue/PAS (control) HEADER OPERATION: Colonoscopy, EGD ([facility] [place] PRE-OP DIAGNOSIS: GERD, anemia, history colon polyps TISSUE SUBMITTED: A. Gastric antrum, H. pylori and path, B. Biopsy GE junction, C. Polyp ascending colon MICROSCOPIC DIAGNOSIS A. Gastric antrum, biopsy: Mild chronic gastritis. See comment. B. Gastroesophageal junction, biopsy: Intestinal metaplasia. Mild chronic inflammation. No evidence of dysplasia. See comment. C. Ascending colon polyp, biopsy: Benign fibrolipomatous polyp. AM:raquel 02/24/19 COMMENT A. The results of immunohistochemistry for Helicobacter pylori will be reported separately ([id number]). B. Alcian blue/PAS stain with matched control supports the above diagnosis. Immunohistochemistry ([id number]) supports the above diagnosis. MICROSCOPIC DESCRIPTION Slides are reviewed. GROSS DESCRIPTION A - Received in fixative is one container labeled with the patient's name and designated biopsy gastric antrum. The specimen consists of one irregular fragment of light rojas soft tissue that measures 0.6 x 0.2 x 0.1 cm. The specimen is totally submitted in one cassette. B - Received in fixative is one container labeled with the patient's name and designated biopsy GE junction. The specimen consists of one irregular fragment of light rojas soft tissue that measures 0.7 x 0.2 x 0.1 cm. The specimen is totally submitted in one cassette. C - Received in fixative is one container labeled with the patient's name and designated ascending colon. The specimen consists of a piece of rojas-pink polyp measuring 1 x 0.7 x 0.2 cm. Multiple fragments of fecal material are also noted. The entire specimen is submitted in one cassette. / ANUEL:raquel 02/23/19 TC:3 CPT: 93875 x3, 39753
[2019-02-22 12:30] VITALS: BP 109/74; BP 95/49; PULSE 68; RESP 18; TEMP 36.2; O2SAT 96
--- NOTE | 2019-02-22 12:31 | OP.ENDO_ITS ---
Patient Name: Romario Lara Procedure Date: 02/22/2019 11:36 AM Date of : 1935 Age: 84 Procedure: Upper GI endoscopy Indications: Follow-up of gastro-esophageal reflux disease Providers: Cresencio Francois MD Medicines: Monitored Anesthesia Care Patient Profile: This is an 84 year old male. Refer to note in patient chart for documentation of history and physical. Complications: No immediate complications. Procedure: Pre-Anesthesia Assessment: - Prior to the procedure, a History and Physical was performed, and patient medications and allergies were reviewed. The patient is competent. The risks and benefits of the procedure and the sedation options and risks were discussed with the patient. All questions were answered and informed consent was obtained. Patient identification and proposed procedure were verified by the physician, the nurse and the sizing end bander in the procedure room. Mental Status Examination: alert and oriented. Airway Examination: normal oropharyngeal airway and neck mobility. Respiratory Examination: clear to auscultation. CV Examination: normal. Prophylactic Antibiotics: The patient does not require prophylactic antibiotics. Prior Anticoagulants: The patient has taken aspirin, last dose was 1 day prior to procedure. ASA Grade Assessment: III - A patient with severe systemic disease. After reviewing the risks and benefits, the patient was deemed in satisfactory condition to undergo the procedure. The anesthesia plan was to use monitored anesthesia care (MAC). Immediately prior to administration of medications, the patient was re-assessed for adequacy to receive sedatives. The heart rate, respiratory rate, oxygen saturations, blood pressure, adequacy of pulmonary ventilation, and response to care were monitored throughout the procedure. The physical status of the patient was re-assessed after the procedure. After obtaining informed consent, the endoscope was passed under direct vision. Throughout the procedure, the patient's blood pressure, pulse, and oxygen saturations were monitored continuously. The gastroscope was introduced through the mouth, and advanced to the jejunum. The upper GI endoscopy was accomplished without difficulty. The patient tolerated the procedure well. Scope In: 12:06:27 PM Scope Out: 12:10:06 PM Total Procedure Duration Time 0 hours 3 minutes 39 seconds Findings: The examined jejunum was normal. The examined duodenum was normal. Localized mild inflammation characterized by erosions, erythema and friability was found in the gastric antrum. Biopsies were taken with a cold forceps for histology. Biopsies were taken with a cold forceps for Helicobacter pylori testing using PyloriTek test. The exam of the stomach was otherwise normal. Non-severe esophagitis with no bleeding was found. Impression: - Normal examined jejunum. - Normal examined duodenum. - Gastritis. Biopsied. - Non-severe reflux esophagitis. Recommendation: - Await pathology results. - Return to nurse practitioner in 1 week. - Continue present medications. Procedure Code(s): --- Professional --- 74076, Esophagogastroduodenoscopy, flexible, transoral; with biopsy, single or multiple CPT copyright 2017 [employer]. All rights reserved. The codes documented in this report are preliminary and upon stainless steel finisher review may be revised to meet current compliance requirements. Cresencio Francois MD 02/22/2019 12:31:10 PM This report has been signed electronically. Number of Addenda: 0 Note Initiated On: 02/22/2019 11:36 AM
--- NOTE | 2019-02-22 12:34 | OP.ENDO_ITS ---
Patient Name: Romario Lara Procedure Date: 02/22/2019 12:11 PM Date of : 1935 Age: 84 Procedure: Colonoscopy Indications: High risk colon cancer surveillance: Personal history of colonic polyps Providers: Cresencio Francois MD Medicines: Monitored Anesthesia Care Patient Profile: This is an 84 year old male. Refer to note in patient chart for documentation of history and physical. Last Colonoscopy: 5 years ago. Complications: No immediate complications. Procedure: Pre-Anesthesia Assessment: - Prior to the procedure, a History and Physical was performed, and patient medications and allergies were reviewed. The patient is competent. The risks and benefits of the procedure and the sedation options and risks were discussed with the patient. All questions were answered and informed consent was obtained. Patient identification and proposed procedure were verified by the physician, the nurse and the steward/stewardess banquet in the procedure room. Mental Status Examination: alert and oriented. Airway Examination: normal oropharyngeal airway and neck mobility. Respiratory Examination: clear to auscultation. CV Examination: normal. Prophylactic Antibiotics: The patient does not require prophylactic antibiotics. Prior Anticoagulants: The patient has taken aspirin, last dose was 1 day prior to procedure. ASA Grade Assessment: III - A patient with severe systemic disease. After reviewing the risks and benefits, the patient was deemed in satisfactory condition to undergo the procedure. The anesthesia plan was to use monitored anesthesia care (MAC). Immediately prior to administration of medications, the patient was re-assessed for adequacy to receive sedatives. The heart rate, respiratory rate, oxygen saturations, blood pressure, adequacy of pulmonary ventilation, and response to care were monitored throughout the procedure. The physical status of the patient was re-assessed after the procedure. After I obtained informed consent, the scope was passed under direct vision. Throughout the procedure, the patient's blood pressure, pulse, and oxygen saturations were monitored continuously. The Colonoscope was introduced through the anus and advanced to 4 cm into the ileum. The colonoscopy was performed without difficulty. The patient tolerated the procedure well. The quality of the bowel preparation was good. Scope In: 12:13:14 PM Scope Withdrawal Time 0 hours 7 minutes 36 seconds Scope Out: 12:24:13 PM Total Procedure Duration Time 0 hours 10 minutes 59 seconds Findings: The perianal and digital rectal examinations were normal. A 4 mm polyp was found in the ascending colon. The polyp was sessile. The polyp was removed with a hot snare. Resection and retrieval were complete. The exam was otherwise without abnormality. The retroflexed view of the distal rectum and anal verge was normal and showed no anal or rectal abnormalities. Impression: - One 4 mm polyp in the ascending colon, removed with a hot snare. Resected and retrieved. - The examination was otherwise normal. - The distal rectum and anal verge are normal on retroflexion view. Recommendation: - Discharge patient to home. - Resume previous diet. - Continue present medications. - Await pathology results. - Return to nurse practitioner in 1 week. - Repeat colonoscopy in 5 years for surveillance based on pathology results. Procedure Code(s): --- Professional --- 02239, Colonoscopy, flexible; with removal of tumor(s), polyp(s), or other lesion(s) by snare technique CPT copyright 2017 [employer]. All rights reserved. The codes documented in this report are preliminary and upon endoscopy rn review may be revised to meet current compliance requirements. Cresencio Francois MD 02/22/2019 12:33:45 PM This report has been signed electronically. Number of Addenda: 0 Note Initiated On: 02/22/2019 12:11 PM
[2019-02-22 12:35] VITALS: BP 109/74; BP 96/60; PULSE 67; RESP 95; O2SAT 18
[2019-02-22 12:40] VITALS: BP 109/74; BP 112/62; PULSE 63; RESP 16; O2SAT 96
[2019-02-22 12:45] VITALS: BP 109/74; BP 121/58; PULSE 59; RESP 16; TEMP 36.2; O2SAT 97
[2019-02-22 13:04] VITALS: BP 109/74
== END 2019-02-22 13:25 | disposition home or self-care (01) ==
LOC: EN 11:09 → AC 11:09
PROVIDERS: Family Provider Family Medicine; PCP Family Medicine; Referring Provider Surgery; Visit Provider Surgery
PROC: 0DJD8ZZ Inspection of Lower Intestinal Tract, Via Natural or Artificial Opening Endoscopic (ICD-10-PCS; CPT 45378; principal; 2019-02-22 11:55)
DX: Z12.11 Encounter for screening for malignant neoplasm of colon (principal); K29.50 Unspecified chronic gastritis without bleeding; K21.0 Gastro-esophageal reflux disease with esophagitis; K63.5 Polyp of colon; I10 Essential (primary) hypertension; I25.10 Atherosclerotic heart disease of native coronary artery without angina pectoris; E78.00 Pure hypercholesterolemia, unspecified; I48.0 Paroxysmal atrial fibrillation; I25.2 Old myocardial infarction; Z95.1 Presence of aortocoronary bypass graft; Z86.010 Personal history of colon polyps; Z93.3 Colostomy status
CPT/HCPCS: 43239; 45385; 88305; 88313; 88342; J7120

== ENCOUNTER → 2019-05-19 | Outpatient (CLI) | payer MEDICARE, SELFPAY ==
[2019-03-05 11:17] VITALS: BMI 34.4
--- NOTE | 2019-05-19 12:32 | CDU_ITS ---
Reason For Study: AMAUROSIS FUJAX Rt. Velocities/BP Lt. Velocities/BP Prox CCA 138/18 cm/sec. Prox CCA 95/15 cm/sec. Mid CCA 105/14 cm/sec. Mid CCA 74/16 cm/sec. Dist CCA 92/12 cm/sec. Dist CCA 84/13 cm/sec. Prox ICA 62/14 cm/sec. Prox ICA 155/43 cm/sec. Mid ICA 90/23 cm/sec. Mid ICA 151/45 cm/sec. Dist ICA 97/24 cm/sec. Dist ICA 111/32 cm/sec. Rt. ICA/CCA = .7. Lt. ICA/CCA = 1.6. Prox ECA 105/8 cm/sec. Prox ECA 140/8 cm/sec. Rt. Vert. 79/9 cm/sec. Lt. Vert. 83/23 cm/sec. Right Extracranial There is homogeneous, irregular atherosclerotic plaque noted in the right common carotid artery. There is heterogeneous, irregular atherosclerotic plaque noted in the right internal carotid artery. There is homogeneous, irregular atherosclerotic plaque noted in the right external carotid artery. Antegrade flow is noted in the right vertebral artery. Left Extracranial There is homogeneous, irregular atherosclerotic plaque noted in the left common carotid artery. There is heterogeneous, irregular atherosclerotic plaque noted in the left internal carotid artery. There is heterogeneous, irregular atherosclerotic plaque noted in the left external carotid artery. Antegrade flow is noted in the left vertebral artery. Procedure Carotid Duplex 12023. Exam performed in department. Interpretation Summary Mild (<50%) stenosis right extracranial internal carotid. Moderate (50-69%) stenosis left extracranial internal carotid. Flow within the vertebral arteries is antegrade bilaterally. Ordering Physician: Ian Mcbride Referring Physician: PEDRO BARAHONA Performed By: Michelle Goss, NATASHA, RVT
== END | disposition home or self-care (01) ==
LOC: CVS 12:30
PROVIDERS: Family Provider Family Medicine; PCP Family Medicine; Referring Provider Ophthalmology; Visit Provider Ophthalmology
DX: G45.3 Amaurosis fugax (principal)
CPT/HCPCS: 93880

== ENCOUNTER → 2019-06-08 08:40 | Outpatient (CLI) | payer MEDICARE, SELFPAY ==
[2019-03-05 11:17] VITALS: BMI 34.4
[2019-06-08 10:17] LABS: Absolute Lymphocyte Count 1.33 X10^3/ul (0.83-4.51); Basophil# 0.01 X10^3/uL; Basophil% 0.2 % (0-1); Eosinophil# 0.17 X10^3/uL; Eosinophils% 2.9 % (0-5); Hematocrit 41.5 % (40-54); Hemoglobin 13.5 g/dl (13.0-16.5); Lymphocyte # 1.33 X10^3/ul (4.0); Lymphocyte % 22.3 % (19-41); Mean Corp Hgb Conc 32.5 g/gl (32-36); Mean Corpuscular Volume 95.2 fL (80-94); Mean Platelet Vol. 10.9 fl (6.2-12.0); Monocyte# 0.44 X10^3/uL; Monocyte% 7.4 % (0-10); Platelet Count 149 K/mm3 (150-450); RBC Distribution Width CV 14.4 % (11.6-14.6); RBC Distribution Width SD 48.1 fl (35.1-43.9); Red Blood Count 4.36 M/mm3 (4.6-6.2)
[2019-06-08 10:25] LABS: POSITIVE COUNT NO; POSITIVE DIFFERENTIAL NO; POSITIVE MORPHOLOGY NO
[2019-06-08 10:47] LABS: Anion Gap 10 (5-15); BUN 25 mg/dL (7-18); BUN/Creat Ratio 22.5 RATIO (10-20); Calcium,Total 8.8 mg/dL (8.5-10.1); Chloride 105 mmol/L (98-107); Cholesterol 133 mg/dL (200); Creatinine, Serum 1.11 mg/dL (0.70-1.30); EST Glomerular Filtration Rate 67 mL/min (>60); Est Glom Filt Rate - Afr Amer 81 mL/min (>60); Glucose 223 mg/dL (74-106); Hemoglobin A1c 7.2 % (4.2-6.3); High Density Lipoprotein 55 mg/dL; PSA,Total- Diagnostic < 0.01 ng/mL (0.0-4.0); Potassium 4.2 mmol/L (3.5-5.1); Sodium Level 140 mmol/L (136-145); Triglycerides 211 mg/dL; Very Low Density Lipoprotein 42 mg/dL (5-40)
== END ==
PROVIDERS: Family Provider Family Medicine; PCP Family Medicine; Visit Provider Family Medicine
DX: I25.10 Atherosclerotic heart disease of native coronary artery without angina pectoris (principal); E11.9 Type 2 diabetes mellitus without complications; C61 Malignant neoplasm of prostate; I10 Essential (primary) hypertension
CPT/HCPCS: 36415; 80048; 80061; 83036; 84153; 85025

== ENCOUNTER → 2019-08-03 07:22 | Outpatient (CLI) | payer MEDICARE, SELFPAY ==
[2019-07-07 09:41] VITALS: BMI 34.8
[2019-08-03 10:48] LABS: AST(SGOT) 15 U/L (15-37); Alanine Aminotransfer ALT/SGPT 19 U/L (16-61); Albumin, Serum 3.4 g/dL (3.2-5.0); Alkaline Phosphatase 61 U/L (45-117); Bilirubin, Direct 0.12 mg/dL (0.00-0.30); Cholesterol 125 mg/dL (200); Globulin 3.2 g/dL (2.2-4.2); High Density Lipoprotein 54 mg/dL; Protein, Total 6.6 g/dL (6.4-8.2); Triglycerides 121 mg/dL; Very Low Density Lipoprotein 24 mg/dL (5-40)
== END ==
PROVIDERS: Family Provider Family Medicine; PCP Family Medicine; Referring Provider Physician Assistant Medical; Visit Provider Physician Assistant Medical
DX: E78.5 Hyperlipidemia, unspecified (principal)
CPT/HCPCS: 36415; 80061; 80076

== ENCOUNTER → 2019-08-09 09:50 | Outpatient (CLI) | payer MEDICARE, SELFPAY ==
[2019-07-07 09:41] VITALS: BMI 34.8
--- NOTE | 2019-08-09 09:51 | STEWCON_ITS ---
Reason For Study: CAD/ASHD Stress Results Protocol: Kieran Protocol WITH DEFINITY Maximum Predicted HR: 136 bpm Target HR: 116 bpm % Maximum Predicted HR: 106 % Heart Stage Duration Rate BP Comment (mm:ss) (bpm) 2CC DEFINITY, HAD SOME CHEST DISCOMFORT THIS MORNING, LEFT ANTERIOR BASELINE 91 132/82CHEST, WENT AWAY WITH REST STAGE 1 3:00 125 198/78SLIGHT SOB, NO CHEST PAIN STAGE 2 1:15 144 / 1 CC DEFINITY, INCREASED SOB RECOVERY 88 132/70 Stress Duration: 4:15 mm:ss Maximum Stress HR: 144 bpm Baseline Echocardiogram Findings The estimated ejection fraction is 65 %. Stress Echo Wall motion Data Resting WM Intermediate WM Stress WM Resting Wall Motion Wall Motion Stress No regional wall motion No regional wall motion abnormalities noted. abnormalities noted. EKG Data The baseline ECG displays normal sinus rhythm. The patient exercised according to the regular Kieran protocol for a total duration of 4:15. The maximum heart rate attained was 155 beats per minute. This was 113% of maximum predicted heart rate. The patient exercised into stage 2 of the Kieran protocol. At peak exercise, upsloping ST changes only were noted, which did not meet the criteria for ischemia. No clinical angina was noted. Interpretation Summary The estimated ejection fraction is 65 %. Normal, adequate, treadmill echocardiogram. Negative for ischemia by EKG and echocardiographic criteria. No anginal symptoms noted. Rare PVCs noted. Hypertensive blood pressure response to exercise. Below average exercise capacity for age. Final LVEF is 75%. Test terminated due to attainment target heart rate and dyspnea. Decreased sensitivity due to poor echo windows requiring Definity agent. No complications. The study was technically difficult. Contrast injection was performed. Ordering Physician: Saul Azul Referring Physician: Jossue Ferro Performed By: Sandi Azul, RDCS, RVT
== END ==
PROVIDERS: Family Provider Family Medicine; PCP Family Medicine; Referring Provider Internal Medicine Cardiovascular Disease; Visit Provider Internal Medicine Cardiovascular Disease
DX: I25.10 Atherosclerotic heart disease of native coronary artery without angina pectoris (principal)
CPT/HCPCS: 93017; 93350; Q9957; A4216; C8928

== ENCOUNTER → 2019-10-04 09:38 | Outpatient (CLI) | payer MEDICARE, SELFPAY ==
[2019-07-07 09:41] VITALS: BMI 34.8
[2019-10-04 12:27] LABS: Anion Gap 7 (5-15); BUN 22 mg/dL (7-18); Calcium,Total 8.8 mg/dL (8.5-10.1); Chloride 107 mmol/L (98-107); Creatinine, Serum 1.05 mg/dL (0.70-1.30); EST Glomerular Filtration Rate 71 mL/min (>60); Est Glom Filt Rate - Afr Amer 86 mL/min (>60); Glucose 171 mg/dL (74-106); Magnesium 1.7 mg/dL (1.6-2.6); Potassium 4.1 mmol/L (3.5-5.1); Sodium Level 138 mmol/L (136-145)
== END ==
PROVIDERS: Visit Provider Family Medicine
DX: R25.2 Cramp and spasm (principal)
CPT/HCPCS: 36415; 80048; 83735

== ENCOUNTER 2019-12-23 17:46 | Inpatient (IN) | payer MEDICARE, SELFPAY ==
[2019-07-07 09:41] VITALS: BMI 34.8
[2019-12-23] VITALS (8 sets, daily range): BP systolic 122–138; BP diastolic 11–82; PULSE 76–88; RESP 16–24; TEMP 36.3–37.4; O2SAT 92–95; BMI 34.8; BMI 37.9; BMI 34.1
--- NOTE | 2019-12-23 18:10 | CT_ITS ---
STUDY: CT ABDOMEN AND PELVIS WITHOUT CONTRAST REASON FOR EXAM: Male, 84 years old. LOW ABD PAIN. Hx of colon cancer with resection, CABG x 4 and prostate cancer RADIATION DOSAGE (If Supplied By Facility): CTDIvol = ( 13.53 ) mGy, DLP = ( 891.68 ) mGycm TECHNIQUE: Transaxial images were obtained from the dome of the diaphragm to the symphysis pubis without oral contrast, and without intravenous contrast. Sagittal and coronal images were reconstructed. Individualized dose optimization techniques were used for this CT. COMPARISON: 02/07/19 FINDINGS: The visualized lung bases are unremarkable. The visualized portions of the heart demonstrate diffuse coronary artery and valvular calcifications. The liver dome is excluded from view. Otherwise unremarkable liver. There are multiple gallstones. Calcific density associated with the posteromedial spleen may be postsurgical or represent a granuloma. There is diffuse atrophy of the pancreas. Normal bilateral adrenal glands. Normal right kidney. Multiple left parapelvic cysts. Normal visualized stomach. The small bowel is again dilated distally measuring up to 3.5 cm in maximal diameter within the left lower quadrant. Stable post surgical changes noted within the sigmoid colon.. There is non-visualization of the appendix. There is diffuse atherosclerotic calcification of the abdominal aorta, without a demonstrated aneurysm. Normal inferior vena cava. Normal retroperitoneum. Normal urinary bladder. Brachytherapy seeds within and otherwise unremarkable prostate. There is a left-sided inguinal hernia containing adipose tissue and bowel. Normal osseous structures. CT/Abdomen/Pelvis without Cont IMPRESSION: Findings concerning for recurrent small bowel obstruction. Left inguinal hernia appears to contain bowel. Findings discussed with Dr. Ackerman by Dr. Rodriguez on 12/23/2019 7:53 PM via telephone. N.B. : The above information has been verbally conveyed by Marv Rodriguez to Delicia Ackerman MD, on 12/23/2019 19:55:41 (ET). Electronically Signed: Marv Rodriguez, at 19:56 EST Tel , Service support ,
[2019-12-23] MEDS: 0.9% Normal Saline 1,000 ML 125 ML IV (18:22)
[2019-12-23] MEDS: Ondansetron 4 MG/2 ML Vial IV (18:22)
[2019-12-23] MEDS: Morphine 4 MG/ML Syringe IV (18:22)
[2019-12-23 18:31] LABS: Absolute Lymphocyte Count 1.79 X10^3/uL (0.83-4.51); Absolute Neutrophil Count 9.2 X10^3/uL (2.0-7.7); Basophil# 0.03 X10^3/uL; Basophil% 0.2 % (0-1); Eosinophil# 0.08 X10^3/uL; Eosinophils% 0.7 % (0-5); Hematocrit 43.6 % (40-54); Lymphocyte # 1.79 X10^3/ul (4.0); Lymphocyte % 14.9 % (19-41); Mean Corp Hgb Conc 32.1 g/dL (32-36); Mean Corpuscular Volume 93.4 fL (80-94); Mean Platelet Vol. 10.9 fl (6.2-12.0); Monocyte# 0.87 X10^3/uL; Monocyte% 7.2 % (0-10); NRBC Flagged by Analyzer 0 % (0-5); Neutrophil # 9.23 X10^3/uL (2.7-7.7); Neutrophil % 76.8 % (47-70); Platelet Count 170 K/mm3 (150-450); RBC Distribution Width SD 47.8 fl (35.1-43.9); Red Blood Count 4.67 M/mm3 (4.6-6.2)
--- NOTE | 2019-12-23 18:38 | ED.DCSUM_ITS ---
- ER Visit Summary Date of Service: 12/23/19 Chief Complaint: [Abdominal pain] History of Present Illness: The patient is a 84 M [presents to the emergency department with abdominal pain that started around noon. Patient's had nausea and some dry heaves. Pain is worse with movement. Patient's had similar pain in the past when he has had bowel obstructions. Patient denies any fevers. His last bowel movement was 3 hours ago but it was loose. Patient has history of coronary artery disease, hypertension, history of colon cancer, and history of prostate cancer. Patient's prior surgical history includes four-vessel CABG as well as hernia repair and partial colectomy.] Physical Examination: [HEENT-PERRLA, EOMI. Cranial nerves II through XII grossly intact. TMs clear. Mucous membranes moist. No adenopathy. Cardiovascular-regular rate and rhythm without murmur or ectopy Lungs-clear to auscultation, chest wall stable without crepitus or subcu emphysema Abdomen-normoactive bowel sounds, soft. Patient has tenderness to palpation over the lower abdomen diffusely but especially the left lower quadrant with guarding. No rigidity noted. Extremities-intact ?4, normal range of motion, normal pulses, atraumatic] Test Results: [CBC with differential obtained showed a white count of 12,000, hemoglobin 14, hematocrit 44, plates 170.] Chemistries were unremarkable. Liver enzymes were normal. Lactate was slightly elevated 2.2. CT scan of the a bdomen pelvis was obtained without contrast because of the past patient's nausea and vomiting. CT showed small bowel obstruction similar in appearance to prior CT study. Emergency Department Course and Treatment: [Patient had an NG tube placed to low intermittent suction. Patient was medicated with morphine and Zofran.] Treatment Plan: [Admit] Disposition: [Admit] Impression: [Small bowel obstruction Abdominal pain] This note was generated with [employer] dictation software. It may contain incorrect words, spelling, and punctuation that were not noted in review of the chart prior to signing ED Disposition - Plan for ED Patient: Referrals: Saul Clark MD [Primary Care Provider] -
[2019-12-23 18:45] LABS: ALB/GLOB Ratio 1.1 RATIO (0.9-2.4); AST(SGOT) 16 U/L (15-37); Alanine Aminotransfer ALT/SGPT 17 U/L (16-61); Albumin, Serum 3.8 g/dL (3.2-5.0); Alkaline Phosphatase 72 U/L (45-117); Anion Gap 7 (5-15); BUN 24 mg/dL (7-18); BUN/Creat Ratio 19.2 RATIO (10-20); Calcium,Total 9.3 mg/dL (8.5-10.1); Chloride 106 mmol/L (98-107); Creatinine, Serum 1.25 mg/dL (0.70-1.30); EST Glomerular Filtration Rate 58 mL/min (>60); Est Glom Filt Rate - Afr Amer 71 mL/min (>60); Estimated Creatinine Clearance 46.85 ml/min; Globulin 3.5 g/dL (2.2-4.2); Glucose 192 mg/dL (74-106); Lipase 131 U/L (73-393); Potassium 3.9 mmol/L (3.5-5.1); Protein, Total 7.3 g/dL (6.4-8.2); Sodium Level 138 mmol/L (136-145)
[2019-12-23 18:56] LABS: Lactic Acid 2.2 mmol/L (0.4-1.9)
[2019-12-23 19:20] LABS: Bacteria 0 SEEN /hpf (None Seen); Mucous, Urine 0 SEEN /hpf (<or=2+); Red Blood Cells-Urine 0 SEEN /hpf (0-5); White Blood Cells 0 SEEN /hpf (0-5)
[2019-12-23 19:25] LABS: Color, Urine Yellow (Yellow); Glucose, Dipstick Normal (Normal); Ketone-Dipstick Negative (Negative); Leukocyte Esterase-Dipstick Negative /ul (Negative); Nitrite-Dipstick Negative (Negative); Occult Blood-Urine Negative /ul (Negative); Protein-Dipstick 15 mg/dl (Negative); Urine Bilirubin Dipstick Negative (Negative); Urine Clarity Sl. Cloudy (Clear); Urine Urobilinogen Normal (Normal)
[2019-12-23 19:32] LABS: Squamous Epithelial Cells - UA 0-5 SEEN /hpf (0-5)
--- NOTE | 2019-12-23 20:00 | PCM.HP.STD ---
Problem List (1) SBO (small bowel obstruction) Status: Acute (2) Atherosclerosis of coronary artery of [place] heart without angina pectoris Status: Chronic Qualifiers: Coronary Disease-Associated Artery/Lesion type: bypass graft Qualified Code(s): I25.810 - Atherosclerosis of coronary artery bypass graft(s) without angina pectoris Comment: CABG x 4 MUHAMMAD-LAD, SVG-Lat Cx, SVG-D1, SVG-RCA w/ MAZE procedure 10/17/2004 (3) H/O coronary artery bypass surgery Status: Chronic Comment: CABG x 4 MUHAMMAD-LAD, SVG-Lat Cx, SVG-D1, SVG-RCA w/ MAZE procedure 10/17/2004 (4) Paroxysmal atrial fibrillation Status: Chronic Comment: S/P maze procedure on 10/17/2004; (5) Hyperlipidemia Status: Chronic Qualifiers: Hyperlipidemia type: pure hypercholesterolemia Qualified Code(s): E78.00 - Pure hypercholesterolemia, unspecified (6) Hypertension Status: Chronic Qualifiers: Hypertension type: essential hypertension Qualified Code(s): I10 - Essential (primary) hypertension (7) Old myocardial infarction Status: Chronic History of Present Illness Date of Admission: 12/23/19 Chief Complaint: abdominal pain The patient is a 84 year old M with a significant history of CAD status post CABG; colon cancer s/p colon resection; hypertension;HLD; atrial fibrillation who presented to emergency department with abdominal pain that started on the same day of presentation. His pain is located located at his left lower quadrants. He rated his pain as 8-9 on a scale of 1-10. He describes his pain as pressure. His pain is nonradiating. His pain is episodic. Associated with symptoms is nausea; vomiting and shortness of breath. He had 2 soft bowel on the day of presentation. Abdomen pelvis CT at the emergency department showed findings concerning for recurrent small bowel obstruction. His lactic acid was elevated. Past Medical History Past Medical History (Chronic Problems): Chronic Problems (Last Reviewed 12/23/19 @ 22:41 by Kirill Hawk MD) Atherosclerosis of coronary artery of [place] heart without angina pectoris (Chronic) CABG x 4 MUHAMMAD-LAD, SVG-Lat Cx, SVG-D1, SVG-RCA w/ MAZE procedure 10/17/2004 H/O coronary artery bypass surgery (Chronic 10/17/04) CABG x 4 MUHAMMAD-LAD, SVG-Lat Cx, SVG-D1, SVG-RCA w/ MAZE procedure 10/17/2004 Paroxysmal atrial fibrillation (Chronic) S/P maze procedure on 10/17/2004; Hyperlipidemia (Chronic) Hypertension (Chronic) Old myocardial infarction (Chronic) Medical History: Medical History (Last Reviewed 12/23/19 @ 23:09 by Kirill Hawk MD) Atherosclerosis of coronary artery of [place] heart without angina pectoris (Chronic) I25.10 CABG x 4 MUHAMMAD-LAD, SVG-Lat Cx, SVG-D1, SVG-RCA w/ MAZE procedure 10/17/2004 Paroxysmal atrial fibrillation (Chronic) I48.0 S/P maze procedure on 10/17/2004; Hyperlipidemia (Chronic) E78.5 Hypertension (Chronic) I10 Old myocardial infarction (Chronic) I25.2 BPH (benign prostatic hyperplasia) N40.0 Basal cell carcinoma C44.91 Colon cancer C18.9 History of left heart catheterization Onset Date: 05/20/18 Z98.890 Widely patent SVG to the obtuse marginal/distal left circumflex. Widely patent SVG to the distal RCA populated the PDA and posterolateral branch. Widely patent SVG to the diagonal with evidence of competitive flow seen from a patent MUHAMMAD to the LAD. Widely patent LI MA to the LAD. Small bowel obstruction K56.609 Type 2 diabetes mellitus without complications E11.9 Allergies Sulfa (Sulfonamide Antibiotics) Allergy (Verified 12/23/19 17:50) itching, headache cyclobenzaprine Adverse Reaction (Verified 12/23/19 17:50) severe headache Home Medications: Ambulatory Orders Medication Instructions Recorded Aspirin [Aspirin, Baby] 81 mg PO DAILY@0800 11/29/14 Nitroglycerin (INPATIENT USE) 0.4 mg SUBLINGUAL Q5M PRN 11/29/14 [Nitrostat] Pantoprazole Sodium [Protonix] 40 mg PO QODAY 04/09/17 rosuvastatin 20 mg tablet 20 mg PO QHS #90 tab 03/05/19 clopidogrel 75 mg tablet 75 mg PO DAILY #90 tab 06/02/19 Amlodipine Besylate 2.5 mg PO DAILY 12/23/19 Hydrochlorothiazide [Hctz] 25 mg PO DAILY 12/23/19 Metoprolol Tartrate [Lopressor 50 mg PO BID 12/23/19 (beta gabriella)] Ramipril 10 mg PO BID 12/23/19 Surgical History: Surgical History (Last Reviewed 12/23/19 @ 23:09 by Kirill Hawk MD) H/O coronary artery bypass surgery (Chronic) Onset Date: 10/17/04 Z95.1 CABG x 4 MUHAMMAD-LAD, SVG-Lat Cx, SVG-D1, SVG-RCA w/ MAZE procedure 10/17/2004 History of herniorrhaphy Z98.890, Z87.19 History of partial colectomy Z90.49 Surgical History: - - CABG x 4, BL inguinal recurrent hernia repairs. Psychiatric History: No pertinent psych hx Lives: Spouse/ Significant Other Smoking Status: Former smoker Alcohol: None - *Family History Maternal Family History: Family History (Last Reviewed 12/23/19 @ 22:29 by Kirill Hawk MD) Mother CVA (cerebral vascular accident) History Items: Hypertension Paternal Family History: Family History (Last Reviewed 12/23/19 @ 22:29 by Kirill Hawk MD) Mother CVA (cerebral vascular accident) History Items: No pertinent history Review of Systems Constitutional: Denies: Chills, Fever, Weight Change HEENT: Denies: Head Aches, Sinus Congestion, Sinus Drainage Cardiovascular: Denies: Chest Pain, Palpitations Respiratory: Denies: Cough, Shortness of breath at rest, Sputum production Gastrointestinal: Reports: Abdominal Pain, Nausea, Vomiting Genitourinary: Denies: Dysuria Musculoskeletal: Denies: Joint Pain, Joint Tenderness Skin: Denies: Rash, Wounds Neurological: Denies: Numbness, Tingling, Focal weakness Psychiatric: Denies: Anxiety, Depression, Homicidal Ideations, Suicidal Ideations Hematologic/ Lymphatic: Denies: Easy Bruising, Easy Bleeding VTE Information - Inpt Only VTE Present on Admission: No VTE Mechan Device Prophylaxis: SCD's VTE Pharm Prophylaxis ordered?: No Patient Problems: Active and Suspected Problems (Last Reviewed 12/23/19 @ 22:41 by Kirill Hawk MD) SBO (small bowel obstruction) (Acute) - Physical Exam Vitals/I&O's: Vital Signs Temp Pulse Resp BP Pulse Ox 98.1 F 81 16 138/63 H 94 12/23/19 18:42 12/23/19 19:55 12/23/19 19:55 12/23/19 19:55 12/23/19 19:55 Oxygen Delivery Method Room Air Weight: 113.398 kg Body Mass Index (BMI) 34.8 General: Alert, Oriented x3, Cooperative HEENT: Atraumatic, PERRLA, EOMI, Normocephalic Neck: Supple, No JVD, Negative Carotid Bruits Lungs: Clear to auscultation, Normal air movement Cardiovascular: Regular rate, Normal S1, Normal S2, No murmurs Abdomen: Bowel Sounds Present, Soft, Non Tender Extremities: No edema, Capillary Refill Less than 3 Seconds Skin: No rashes, No breakdown Musculoskeletal: No Tenderness to Palpation of Joints or Extremities Neurological: Cranial nerves II-XII grossly intact Psych/Mental Status: Normal Affect, Appropriate Laboratory Results 12/23/19 18:10: WBC 12.0 H, RBC 4.67, Hgb 14.0, Hct 43.6, MCV 93.4, MCH 30.0, MCHC 32.1, RDW Std Deviation 47.8 H, RDW Coeff of Helder 14.0, Plt Count 170, MPV 10.9, Immature Gran % (Auto) 0.200, Neut % (Auto) 76.8 H, Lymph % (Auto) 14.9 L, [place] % (Auto) 7.2, Eos % (Auto) 0.7, Baso % (Auto) 0.2, Absolute Neuts (auto) 9.2 H, Absolute Lymphs (auto) 1.79, Nucleated RBC % 0 12/23/19 18:10: Sodium 138, Potassium 3.9, Chloride 106, Carbon Dioxide 25.0, Anion Gap 7, BUN 24 H, Creatinine 1.25, Estim Creat Clear Calc 46.85, Est GFR (MDRD) Af Amer 71, Est GFR (MDRD) Non-Af 58 L, BUN/Creatinine Ratio 19.2, Glucose 192 H, Calcium 9.3, Total Bilirubin 1.10 H, AST 16, ALT 17, Alkaline Phosphatase 72, Total Protein 7.3, Albumin 3.8, Globulin 3.5, Albumin/Globulin Ratio 1.1, Lipase 131 12/23/19 18:10: Lactic Acid 2.2 H* 12/23/19 19:15: Urine Color Yellow, Urine Clarity Sl. Cloudy, Urine pH 6.0, Ur Specific [place] 1.020, Urine Protein 15 H, Urine Glucose (UA) Normal, Urine Ketones Negative, Urine Occult Blood Negative, Urine Nitrite Negative, Urine Bilirubin Negative, Urine Urobilinogen Normal, Ur Leukocyte Esterase Negative, Urine RBC 0 SEEN, Urine WBC 0 SEEN, Ur Squamous Epith Cells 0-5 SEEN, Urine Bacteria 0 SEEN, Urine Mucus 0 SEEN Current Medications Sodium Chloride () 1,000 mls @ 125 mls/hr IV .Q8H TOM Last Admin: 12/23/19 18:22 Dose: 125 mls/hr Documented by: Assessment/Plan All Active Problems (Last Reviewed 12/23/19 @ 22:41 by Kirill Hawk MD) SBO (small bowel obstruction) (Acute) The patient is a 84 year old M with a significant history of CAD status post CABG; colon cancer s/p colon resection; hypertension;HLD; atrial fibrillation who presented to emergency department with abdominal pain; nausea and vomiting and found to have lactic acidosis and radiographic evidence concerning for recurrent small bowel obstruction. Acute recurrent small bowel obstruction NG tube was placed at the emergency department. Keep patient n.p.o. for now. IV hydration. IV morphine for pain and IV Zofran for antiemetics. Consult general surgery. Lactic acid on presentation was elevated. Trend lactic acid. Mild leukocytosis; trend. Hypertension On presentation his blood pressure was within goal in regards to his age. On home metoprolol, hydrochlorothiazide and ramipril. Hold all p.o. medication in the setting of small bowel obstruction. Put on scheduled Vasotec and PRN labetalol. Diabetes mellitus with with hyperglycemia On presentation her blood glucose on BMP was elevated at 192. Not on home hypoglycemic regimen. In the setting of n.p.o. status will check Accu-Chek every 6 hours without coverage for now. Status post CABG Aspirin and Plavix held in the setting of small bowel obstruction and n.p.o. status. Resume when appropriate. GERD Home Protonix. Change to IV in setting of npo status. Hyperlipidemia On home Crestor held the setting of n.p.o. status. DVT prophylaxis SCD ordered. Code Visit Inpatient E&M: 99315 In Hosp L3
--- NOTE | 2019-12-23 20:35 | RAD_ITS ---
HISTORY: NG tube placement Comparison x-ray of the upper abdomen is from February 07, 2019 FINDINGS: # of images incl. paperwork: 1 Frontal view of the chest and abdomen demonstrates a nasogastric tube in the stomach in adequate position. Sternal wires persists. The stomach is mostly decompressed. RAD/Abdomen Single View (Portable) IMPRESSION: NGT in adequate position. at 2101 Reported and signed by: Yash Villalpando MD Electronically Signed: Yash Villalpando MD at 21:00 EST Tel , Service support ,
[2019-12-23] MEDS: Oxymetazoline 0.05% 1 SPRAY SPRAY.BTL 2 SPRAY NASAL (20:39)
[2019-12-23] MEDS: Lidocaine 4% 5 ML Ampul 2 ML INHALATION (20:40)
[2019-12-23] MEDS: 0.9% Normal Saline 1,000 ML 100 ML IV (21:28)
[2019-12-23 22:22] LABS: Reflex Lactate? Y
[2019-12-23 23:25] LABS: Lactic Acid 1.1 mmol/L (0.4-1.9)
[2019-12-24] VITALS (12 sets, daily range): BP systolic 138–160; BP diastolic 64–76; PULSE 80–93; RESP 16–18; TEMP 36.4–37.2; O2SAT 93–95
[2019-12-24 00:16] LABS: Bedside Glucose 153 mg/dL (70-110)
[2019-12-24] MEDS: Enalaprilat 1.25 MG/ML Vial IV ×4 (00:24→17:12)
[2019-12-24] MEDS: 0.9% Saline Lock 10 ML Syringe IV ×2 (00:24→05:40)
[2019-12-24 05:32] LABS: Absolute Lymphocyte Count 1.04 X10^3/uL (0.83-4.51); Absolute Neutrophil Count 3.5 X10^3/uL (2.0-7.7); Basophil# 0.01 X10^3/uL; Basophil% 0.2 % (0-1); Eosinophil# 0.06 X10^3/uL; Eosinophils% 1.2 % (0-5); Hematocrit 37.4 % (40-54); Hemoglobin 11.9 g/dL (13.0-16.5); Lymphocyte # 1.04 X10^3/ul (4.0); Lymphocyte % 20.4 % (19-41); Mean Corp Hgb Conc 31.8 g/dL (32-36); Mean Corpuscular Hgb 30.4 pg (27.0-32.0); Mean Corpuscular Volume 95.4 fL (80-94); Mean Platelet Vol. 10.7 fl (6.2-12.0); Monocyte# 0.51 X10^3/uL; NRBC Flagged by Analyzer 0 % (0-5); Neutrophil # 3.47 X10^3/uL (2.7-7.7); Platelet Count 128 K/mm3 (150-450); RBC Distribution Width CV 14.2 % (11.6-14.6); RBC Distribution Width SD 49.4 fl (35.1-43.9); Red Blood Count 3.92 M/mm3 (4.6-6.2); White Blood Count 5.1 K/mm3 (4.4-11.0)
[2019-12-24 05:56] LABS: Bedside Glucose 159 mg/dL (70-110)
[2019-12-24 05:57] LABS: Anion Gap 6 (5-15); BUN 30 mg/dL (7-18); Calcium,Total 7.9 mg/dL (8.5-10.1); Chloride 108 mmol/L (98-107); EST Glomerular Filtration Rate 61 mL/min (>60); Est Glom Filt Rate - Afr Amer 74 mL/min (>60); Estimated Creatinine Clearance 48.81 ml/min; Glucose 182 mg/dL (74-106); Potassium 3.7 mmol/L (3.5-5.1); Sodium Level 140 mmol/L (136-145)
--- NOTE | 2019-12-24 06:08 | NURSING ---
Pt wanted a surgical consult with Dr. Diaz since he has dealt with him before. Advised pt that Dr. Diaz is currently out per information received from the Pharmacovigilance Scientist. I asked him if he would be ok with Dr. Rodriguez or Dr. Souza who are on for that group and he indicated that would be ok.
--- NOTE | 2019-12-24 07:15 | PCM.CONS.GEN ---
Problem List (1) SBO (small bowel obstruction) Status: Acute Reason for Consult Date of Consultation: 12/24/19 Reason for Consultation: Small bowel obstruction History of Present Illness: The patient is a 84 year old M with an extensive history of bowel obstruction and colon cancer. The patient reports that he started experiencing some left lower quadrant pain yesterday and came to the ER. He states he spit up some food but not a heavy amount of vomiting. He reports having a bowel movement yesterday. He says this morning he is passing a little bit of flatus. He says his pain has improved since coming to the ER. Past Medical History Past Medical History (Chronic Problems): Chronic Problems (Last Reviewed 12/23/19 @ 23:09 by Kirill Hawk MD) Atherosclerosis of coronary artery of [place] heart without angina pectoris (Chronic) CABG x 4 MUHAMMAD-LAD, SVG-Lat Cx, SVG-D1, SVG-RCA w/ MAZE procedure 10/17/2004 H/O coronary artery bypass surgery (Chronic 10/17/04) CABG x 4 MUHAMMAD-LAD, SVG-Lat Cx, SVG-D1, SVG-RCA w/ MAZE procedure 10/17/2004 Paroxysmal atrial fibrillation (Chronic) S/P maze procedure on 10/17/2004; Hyperlipidemia (Chronic) Hypertension (Chronic) Old myocardial infarction (Chronic) Medical History: Medical History (Last Reviewed 12/23/19 @ 23:09 by Kirill Hawk MD) Atherosclerosis of coronary artery of [place] without angina pectoris (Chronic) I25.10 CABG x 4 MUHAMMAD-LAD, SVG-Lat Cx, SVG-D1, SVG-RCA w/ MAZE procedure 10/17/2004 Paroxysmal atrial fibrillation (Chronic) I48.0 S/P maze procedure on 10/17/2004; Hyperlipidemia (Chronic) E78.5 Hypertension (Chronic) I10 Old myocardial infarction (Chronic) I25.2 BPH (benign prostatic hyperplasia) N40.0 Basal cell carcinoma C44.91 Colon cancer C18.9 History of left heart catheterization Onset Date: 05/20/18 Z98.890 Widely patent SVG to the obtuse marginal/distal left circumflex. Widely patent SVG to the distal RCA populated the PDA and posterolateral branch. Widely patent SVG to the diagonal with evidence of competitive flow seen from a patent MUHAMMAD to the LAD. Widely patent LI MA to the LAD. Small bowel obstruction K56.609 Type 2 diabetes mellitus without complications E11.9 Allergies Sulfa (Sulfonamide Antibiotics) Allergy (Verified 12/23/19 17:50) itching, headache cyclobenzaprine Adverse Reaction (Verified 12/23/19 17:50) severe headache Home Medications: Ambulatory Orders Medication Instructions Recorded Aspirin [Aspirin, Baby] 81 mg PO DAILY@0800 11/29/14 Nitroglycerin (INPATIENT USE) 0.4 mg SUBLINGUAL Q5M PRN 11/29/14 [Nitrostat] Pantoprazole Sodium [Protonix] 40 mg PO QODAY 04/09/17 rosuvastatin 20 mg tablet 20 mg PO QHS #90 tab 03/05/19 clopidogrel 75 mg tablet 75 mg PO DAILY #90 tab 06/02/19 Amlodipine Besylate 2.5 mg PO DAILY 12/23/19 Hydrochlorothiazide [Hctz] 25 mg PO DAILY 12/23/19 Metoprolol Tartrate [Lopressor 50 mg PO BID 12/23/19 (beta gabriella)] Ramipril 10 mg PO BID 12/23/19 Surgical History: Surgical History (Last Reviewed 12/23/19 @ 23:09 by Kirill Hawk MD) H/O coronary artery bypass surgery (Chronic) Onset Date: 10/17/04 Z95.1 CABG x 4 MUHAMMAD-LAD, SVG-Lat Cx, SVG-D1, SVG-RCA w/ MAZE procedure 10/17/2004 History of herniorrhaphy Z98.890, Z87.19 History of partial colectomy Z90.49 Surgical History: - - CABG x 4, BL inguinal recurrent hernia repairs. Psychiatric History: No pertinent psych hx Lives: Spouse/ Significant Other Smoking Status: Former smoker Tobacco Use: Cigars, Chew, Pipe Alcohol: None - *Family History Maternal Family History: Family History (Last Reviewed 12/23/19 @ 22:29 by Kirill Hawk MD) Mother CVA (cerebral vascular accident) History Items: Hypertension Paternal Family History: Family History (Last Reviewed 12/23/19 @ 22:29 by Kirill Hawk MD) Mother CVA (cerebral vascular accident) History Items: No pertinent history Review of Systems Constitutional: Denies: Anorexia, Fever Cardiovascular: Denies: Chest Pain Respiratory: Denies: Cough, Shortness of Breath Gastrointestinal: Reports: Abdominal Pain, Nausea, Vomiting. Denies: Diarrhea, Hematemesis, Hematochezia Genitourinary: Denies: Dysuria Musculoskeletal: Denies: Joint Tenderness Neurological: Denies: Balance problems Psychiatric: Denies: Anxiety Patient Problems: Active and Suspected Problems (Last Reviewed 12/23/19 @ 23:09 by Kirill Hawk MD) SBO (small bowel obstruction) (Acute) - Physical Exam Vitals/I&O's: Vital Signs Temp Pulse Resp BP Pulse Ox 98.6 F 84 18 138/64 H 93 12/24/19 05:20 12/24/19 05:20 12/24/19 05:20 12/24/19 05:20 12/24/19 05:20 Oxygen Delivery Method Room Air Weight: 244 lb 14.937 oz Body Mass Index (BMI) 34.1 Intake and Output for Last 24 Hours 12/22/19 12/23/19 12/24/19 23:59 23:59 23:59 Intake Total 560.00 / 560.00 30 / 30 Output Total 300 / 600 350 / 350 Balance 260.00 / -40.00 -320 / -320 General: Alert, Oriented x3 Neck: No JVD Lungs: Normal air movement, No rhonchi Cardiovascular: Regular rate, Regular Rhythm Abdomen: Soft, Distended, Tender - Slight tenderness in the left lower quadrant with no guarding or rebound. Musculoskeletal: No Muscle Wasting Neurological: Cranial nerves II-XII grossly intact Psych/Mental Status: Normal Affect Laboratory Results 12/23/19 18:10: WBC 12.0 H, RBC 4.67, Hgb 14.0, Hct 43.6, MCV 93.4, MCH 30.0, MCHC 32.1, RDW Std Deviation 47.8 H, RDW Coeff of Helder 14.0, Plt Count 170, MPV 10.9, Immature Gran % (Auto) 0.200, Neut % (Auto) 76.8 H, Lymph % (Auto) 14.9 L, [place] % (Auto) 7.2, Eos % (Auto) 0.7, Baso % (Auto) 0.2, Absolute Neuts (auto) 9.2 H, Absolute Lymphs (auto) 1.79, Nucleated RBC % 0 12/23/19 18:10: Sodium 138, Potassium 3.9, Chloride 106, Carbon Dioxide 25.0, Anion Gap 7, BUN 24 H, Creatinine 1.25, Estim Creat Clear Calc 46.85, Est GFR (MDRD) Af Amer 71, Est GFR (MDRD) Non-Af 58 L, BUN/Creatinine Ratio 19.2, Glucose 192 H, Calcium 9.3, Total Bilirubin 1.10 H, AST 16, ALT 17, Alkaline Phosphatase 72, Total Protein 7.3, Albumin 3.8, Globulin 3.5, Albumin/Globulin Ratio 1.1, Lipase 131 12/23/19 18:10: Lactic Acid 2.2 H* 12/23/19 19:15: Urine Color Yellow, Urine Clarity Sl. Cloudy, Urine pH 6.0, Ur Specific [place] 1.020, Urine Protein 15 H, Urine Glucose (UA) Normal, Urine Ketones Negative, Urine Occult Blood Negative, Urine Nitrite Negative, Urine Bilirubin Negative, Urine Urobilinogen Normal, Ur Leukocyte Esterase Negative, Urine RBC 0 SEEN, Urine WBC 0 SEEN, Ur Squamous Epith Cells 0-5 SEEN, Urine Bacteria 0 SEEN, Urine Mucus 0 SEEN 12/23/19 22:55: Lactic Acid 1.1 12/24/19 00:07: POC Glucose 153 H 12/24/19 04:55: WBC 5.1, RBC 3.92 L, Hgb 11.9 L, Hct 37.4 L, MCV 95.4 H, MCH 30.4, MCHC 31.8 L, RDW Std Deviation 49.4 H, RDW Coeff of [place]der 14.2, Plt Count 128 L, MPV 10.7, Immature Gran % (Auto) 0.200, Neut % (Auto) 68.0, Lymph % (Auto) 20.4, [place] % (Auto) 10.0, Eos % (Auto) 1.2, Baso % (Auto) 0.2, Absolute Neuts (auto) 3.5, Absolute Lymphs (auto) 1.04, Nucleated RBC % 0 12/24/19 04:55: Sodium 140, Potassium 3.7, Chloride 108 H, Carbon Dioxide 26.0, Anion Gap 6, BUN 30 H, Creatinine 1.20, Estim Creat Clear Calc 48.81, Est GFR (MDRD) Af Amer 74, Est GFR (MDRD) Non-Af 61, BUN/Creatinine Ratio 25.0 H, Glucose 182 H, Calcium 7.9 L 12/24/19 05:36: POC Glucose 159 H Clinical Impression(s) from Imaging Studies Abdomen/Pelvis CT 12/23/19 18:10 IMPRESSION: Findings concerning for recurrent small bowel obstruction. Left inguinal hernia appears to contain bowel. Findings discussed with Dr. Ackerman by Dr. Rodriguez on 12/23/2019 7:53 PM via telephone. N.B. : The above information has been verbally conveyed by Marv Rodriguez to Delicia Ackerman MD, on 12/23/2019 19:55:41 (ET). Electronically Signed: Marv Rodriguez, at 19:56 EST Tel , Service support , ADDENDUM: 12/23/192002 IMPRESSION: Findings concerning for recurrent small bowel obstruction. Left inguinal hernia appears to contain bowel. Findings discussed with Dr. Ackerman by Dr. Rodriguez on 12/23/2019 7:53 PM via telephone. N.B. : The above information has been verbally conveyed by Marv Rodriguez to Delicia Ackerman MD, on 12/23/2019 19:55:41 (ET). Electronically Signed: Marv Rodriguez, at 19:56 EST Tel , Service support , KUB X-Ray 12/23/19 20:35 IMPRESSION: NGT in adequate position. at 2101 Reported and signed by: Yash Villalpando MD Electronically Signed: Yash Villalpando MD at 21:00 EST Tel , Service support , Current Medications Enalaprilat (Vasotec) 1.25 mg IV Q6 TOM Last Admin: 12/24/19 05:40 Dose: 1.25 mg Documented by: Glucagon () 1 mg IM .X1 PRN PRN Reason: Hypoglycemia Sodium Chloride () 1,000 mls @ 100 mls/hr IV .Q10H TOM Stop: 12/24/19 17:02 Last Infusion: 12/23/19 21:52 Dose: 100 mls/hr Documented by: Pantoprazole Sodium 40 mg/ (Sodium Chloride) 110 mls @ 330 mls/hr IV Q24 TOM Last Infusion: 12/23/19 21:52 Dose: Infused Documented by: Dextrose (Dextrose 10%-Water) 250 mls @ 999 mls/hr IV .Q16M PRN; Protocol PRN Reason: HYPOGLYCEMIA Labetalol HCl (Trandate) 10 mg IV Q4H PRN PRN PRN Reason: SBP > 160 Morphine Sulfate () 2 mg IV Q3H PRN PRN PRN Reason: Pain Score 6-10/10 Ondansetron HCl (Zofran) 4 mg IV Q8H PRN PRN PRN Reason: NAUSEA/VOMITING Sodium Chloride () 10 - 40 ml IV UD PRN PRN Reason: SALINE FLUSH Last Admin: 12/24/19 05:40 Dose: 10 ml Documented by: Assessment/Plan All Active Problems (Last Reviewed 12/23/19 @ 23:09 by Kirill Hawk MD) SBO (small bowel obstruction) (Acute) 84-year-old male with small bowel obstruction 1. Patient has had multiple small bowel obstructions in the past. He had a 3-hour laparoscopic lysis of adhesions by Dr. Osuna in 2016. He had a small bowel obstruction in January 2019 which resolved conservatively. He has had a history of sigmoid colectomy with colostomy and reversal and multiple hernia repairs. He has a known left inguinal hernia which he says he keeps an eye on it and is easily reducible. 2. I was not able to appreciate any incarcerated bowel in this left inguinal hernia. His NG output is very light. He says he is passing some flatus and he had a bowel movement yesterday. There is stool in his colon from the CT yesterday. He is having a partial small bowel obstruction versus resolving small bowel obstruction. Continue to monitor and continue NG suction until the NG output decreases and he starts having more significant bowel function. 3. The patient says he does not want surgery at this time unless absolutely necessary. Continue to monitor. May order contrast study over the weekend. At this time he does not have any peritoneal signs and his white count is normal. His lactate has also normalized. Continue conservative treatment. Mike Rodriguez MD Pager: [facility] [address] [place] [address], [address] [place] [address] Office:
[2019-12-24] MEDS: 0.9% Normal Saline 1,000 ML 100 ML IV ×2 (07:23→17:11)
--- NOTE | 2019-12-24 07:33 | PN_ITS ---
Patient Problems: Active and Suspected Problems (Last Reviewed 12/23/19 @ 23:09 by Kirill Hawk MD) SBO (small bowel obstruction) (Acute) Reason for Visit: Follow-up on bowel obstruction Subjective: Patient was seen and examined. Denied any abdominal pain. NG tube was significant brownish output. Denied any fever or chills or nausea or vomiting. He has not passed any bowel movement. Objective: Physical exam: General: Alert, Oriented x3, Cooperative HEENT: Atraumatic, PERRLA, EOMI, Normocephalic Neck: Supple, No JVD, Negative Carotid Bruits Lungs: Clear to auscultation, Normal air movement Cardiovascular: Regular rate, Normal S1, Normal S2, No murmurs Abdomen: Bowel Sounds Present, Soft, Non Tender Extremities: No edema, Capillary Refill Less than 3 Seconds Skin: No rashes, No breakdown Musculoskeletal: No Tenderness to Palpation of Joints or Extremities Neurological: Cranial nerves II-XII grossly intact Psych/Mental Status: Normal Affect, Appropriate Vitals/I&O's: Vital Signs Temp Pulse Resp BP Pulse Ox 98.6 F 84 18 138/64 H 93 12/24/19 05:20 12/24/19 05:20 12/24/19 05:20 12/24/19 05:20 12/24/19 05:20 Oxygen Delivery Method Room Air Weight: 111.1 kg Body Mass Index (BMI) 34.1 Intake and Output for Last 24 Hours 12/22/19 12/23/19 12/24/19 23:59 23:59 23:59 Intake Total 560.00 / 560.00 981.67 / 981.67 Output Total 300 / 600 350 / 350 Balance 260.00 / -40.00 631.67 / 631.67 Laboratory Results 12/23/19 18:10: WBC 12.0 H, RBC 4.67, Hgb 14.0, Hct 43.6, MCV 93.4, MCH 30.0, MCHC 32.1, RDW Std Deviation 47.8 H, RDW Coeff of Helder 14.0, Plt Count 170, MPV 10.9, Immature Gran % (Auto) 0.200, Neut % (Auto) 76.8 H, Lymph % (Auto) 14.9 L, [place] % (Auto) 7.2, Eos % (Auto) 0.7, Baso % (Auto) 0.2, Absolute Neuts (auto) 9.2 H, Absolute Lymphs (auto) 1.79, Nucleated RBC % 0 12/23/19 18:10: Sodium 138, Potassium 3.9, Chloride 106, Carbon Dioxide 25.0, Anion Gap 7, BUN 24 H, Creatinine 1.25, Estim Creat Clear Calc 46.85, Est GFR (MDRD) Af Amer 71, Est GFR (MDRD) Non-Af 58 L, BUN/Creatinine Ratio 19.2, Glucose 192 H, Calcium 9.3, Total Bilirubin 1.10 H, AST 16, ALT 17, Alkaline Phosphatase 72, Total Protein 7.3, Albumin 3.8, Globulin 3.5, Albumin/Globulin Ratio 1.1, Lipase 131 12/23/19 18:10: Lactic Acid 2.2 H* 12/23/19 19:15: Urine Color Yellow, Urine Clarity Sl. Cloudy, Urine pH 6.0, Ur Specific [place] 1.020, Urine Protein 15 H, Urine Glucose (UA) Normal, Urine Ketones Negative, Urine Occult Blood Negative, Urine Nitrite Negative, Urine Bilirubin Negative, Urine Urobilinogen Normal, Ur Leukocyte Esterase Negative, Urine RBC 0 SEEN, Urine WBC 0 SEEN, Ur Squamous Epith Cells 0-5 SEEN, Urine Bacteria 0 SEEN, Urine Mucus 0 SEEN 12/23/19 22:55: Lactic Acid 1.1 12/24/19 00:07: POC Glucose 153 H 12/24/19 04:55: WBC 5.1, RBC 3.92 L, Hgb 11.9 L, Hct 37.4 L, MCV 95.4 H, MCH 30.4, MCHC 31.8 L, RDW Std Deviation 49.4 H, RDW Coeff of Helder 14.2, Plt Count 128 L, MPV 10.7, Immature Gran % (Auto) 0.200, Neut % (Auto) 68.0, Lymph % (Auto) 20.4, [place] % (Auto) 10.0, Eos % (Auto) 1.2, Baso % (Auto) 0.2, Absolute Neuts (auto) 3.5, Absolute Lymphs (auto) 1.04, Nucleated RBC % 0 12/24/19 04:55: Sodium 140, Potassium 3.7, Chloride 108 H, Carbon Dioxide 26.0, Anion Gap 6, BUN 30 H, Creatinine 1.20, Estim Creat Clear Calc 48.81, Est GFR (MDRD) Af Amer 74, Est GFR (MDRD) Non-Af 61, BUN/Creatinine Ratio 25.0 H, Glucose 182 H, Calcium 7.9 L 12/24/19 05:36: POC Glucose 159 H Current Medications Enalaprilat (Vasotec) 1.25 mg IV Q6 [facility] Last Admin: 12/24/19 05:40 Dose: 1.25 mg Documented by: Glucagon () 1 mg IM .X1 PRN PRN Reason: Hypoglycemia Sodium Chloride () 1,000 mls @ 100 mls/hr IV .Q10H TOM Stop: 12/24/19 17:02 Last Admin: 12/24/19 07:23 Dose: 100 mls/hr Documented by: Pantoprazole Sodium 40 mg/ (Sodium Chloride) 110 mls @ 330 mls/hr IV Q24 [facility] Last Infusion: 12/23/19 21:52 Dose: Infused Documented by: Dextrose (Dextrose 10%-Water) 250 mls @ 999 mls/hr IV .Q16M PRN; Protocol PRN Reason: HYPOGLYCEMIA Labetalol HCl (Trandate) 10 mg IV Q4H PRN PRN PRN Reason: SBP > 160 Morphine Sulfate () 2 mg IV Q3H PRN PRN PRN Reason: Pain Score 6-10/10 Ondansetron HCl (Zofran) 4 mg IV Q8H PRN PRN PRN Reason: NAUSEA/VOMITING Sodium Chloride () 10 - 40 ml IV UD PRN PRN Reason: SALINE FLUSH Last Admin: 12/24/19 05:40 Dose: 10 ml Documented by: STROKE Vital Signs/Narrative: Vital Signs Temp Pulse Resp BP Pulse Ox 12/24/19 05:20 98.6 F 84 18 138/64 H 93 12/24/19 03:59 86 Medical Necessity - Tobacco Use Smoking Status: Former smoker Tobacco Use: Cigars, Chew, Pipe Assessment/Plan All Active Problems (Last Reviewed 12/23/19 @ 23:09 by Kirill Hawk MD) SBO (small bowel obstruction) (Acute) 84-year-old with past medical history of CAD status post CABG, history of multiple abdominal surgeries, including colon resection for colon cancer, hypertension who was admitted with abdominal pain, nausea and vomiting. 1. Acute recurrent bowel obstruction, likely small bowel, status post NG tube placement Being managed conservatively, General surgery following We will continue with NG tube, IV hydration, pain control Follow-up on general surgery recommendations 2. Hypertension, controlled, continue with PRN medications as home medications are on hold 3. Leukocytosis likely secondary to dehydration/bowel obstruction, resolved with hydration 4. Type 2 DM, blood sugars are controlled, not on meds at home, Will continue with blood glucose checks and ISS 5. CAD status post CABG/hyperlipidemia, appears stable, Aspirin, Plavix and Crestor on hold for now 6. CKD stage 3, Cr is close to his baseline 7. DVT PPx- Heparin SC Code Visit Inpatient E&M: 85908 Subs Hosp L2
--- NOTE | 2019-12-24 10:36 | CASEMGMT ---
RN CM Assessment Note Presentation: SBO; hx of sigmoid colectomy with colostomy and subsequent reversal, numerous hernia repairs. Intro role of CM and purpose of RN CM assessment to patient, and daughter in room. Pt is awake, alert and able to participate in assessment. Demographics, PCP and Pharmacy verified. Pt states he is independent, no DME use and no care needs. States he is able to afford prescriptions currently, and no difficulty following up with physicians. PCP: Dr. Saul Clark Specialists: Dr. Ferro, Dr. Francois (past surgeries); Dr. Rodriguez (following this admission) Preferred Pharmacy: [facility] Insurance: [employer] [facility] Prescription Benefit: yes LNOK: ; daughter Jeanette Peralta Living Arrangements: Lives independently with in one story home with basement. No concerns re: care at home. Pt does not require any assist with ADL's Transportation: drives DME: Blood glucose monitor and supplies. States he only checks his blood sugar every few weeks and it is always around 130 HHC/SNF: none Patient DC goals: home DC PLAN: Home, dc needs noted. Daphney FERRELLN RN ACM
[2019-12-24 12:06] LABS: Bedside Glucose 141 mg/dL (70-110)
[2019-12-24] MEDS: Heparin Injection (Vial) 5,000 UNIT/ML VIAL 5000 UNIT SC ×2 (14:28→21:05)
[2019-12-24 17:25] LABS: Bedside Glucose 118 mg/dL (70-110)
[2019-12-25] VITALS (12 sets, daily range): BP systolic 142–158; BP diastolic 62–77; PULSE 76–85; RESP 16–18; TEMP 36.6–37.1; O2SAT 92–97
[2019-12-25] MEDS: Enalaprilat 1.25 MG/ML Vial IV ×4 (00:05→17:33)
[2019-12-25 00:06] LABS: Bedside Glucose 120 mg/dL (70-110)
[2019-12-25] MEDS: Heparin Injection (Vial) 5,000 UNIT/ML VIAL 5000 UNIT SC ×3 (06:09→20:57)
[2019-12-25] MEDS: 0.9% Saline Lock 10 ML Syringe IV ×4 (06:12→17:33)
[2019-12-25 06:36] LABS: Bedside Glucose 122 mg/dL (70-110)
--- NOTE | 2019-12-25 07:52 | RAD_ITS ---
STUDY: X-RAY - ABDOMEN/PELVIS REASON FOR EXAM: Male, 84 years old. Small bowel obstruction. TECHNIQUE: AP supine and upright views of the abdomen and pelvis. COMPARISON: 12/23/2019. FINDINGS: The nasogastric tube''s tip remains below the level of diaphragm in the region of the gastric antrum. There are nonspecific gaseous bowel loops and colon. There is no demonstrated free abdominal air. The visualized liver, spleen and kidneys are grossly normal in size. There are metallic density overlying the symphysis pubis. The osseous structures are grossly unremarkable. RAD/Abd Inc Decub and/or Erect IMPRESSION: Nasogastric tube with its tip in the region of the stomach. Nonspecific gas pattern. Electronically Signed: Rafael Hughes MD at 14:28 EST Tel , Service support ,
--- NOTE | 2019-12-25 07:53 | PCM.PN.SRG ---
Patient Problems: Active and Suspected Problems (Last Reviewed 12/23/19 @ 23:09 by Kirill Hawk MD) SBO (small bowel obstruction) (Acute) Subjective: Patient has small amount of gas as well as a small bowel movement yesterday however he states he has not been having further bowel movements or flatus. NG yesterday was 700 cc, this morning has been recorded for 500 cc - Physical Exam Vitals/I&O's: Vital Signs Temp Pulse Resp BP Pulse Ox 98 F 77 16 148/77 H 92 12/25/19 02:43 12/25/19 06:05 12/25/19 02:43 12/25/19 06:05 12/25/19 02:43 Oxygen Delivery Method Room Air Weight: 244 lb 14.937 oz Body Mass Index (BMI) 34.1 Intake and Output for Last 24 Hours 12/23/19 12/24/19 12/25/19 23:59 23:59 23:59 Intake Total 560.00 / 560.00 2098.33 / 2098.33 1060 / 1060 Output Total 300 / 600 700 / 700 700 / 700 Balance 260.00 / -40.00 1398.33 / 1398.33 360 / 360 General: Alert, Oriented x3, Cooperative, No apparent distress HEENT: Atraumatic Lungs: Normal air movement Cardiovascular: Regular rate Abdomen: Soft, Non Tender, Non-Distended Neurological: Cranial nerves II-XII grossly intact Laboratory Results 12/24/19 11:58: POC Glucose 141 H 12/24/19 17:13: POC Glucose 118 H 12/25/19 00:00: POC Glucose 120 H 12/25/19 06:08: POC Glucose 122 H Current Medications Enalaprilat (Vasotec) 1.25 mg IV Q6 [facility] Last Admin: 12/25/19 06:09 Dose: 1.25 mg Documented by: Glucagon () 1 mg IM .X1 PRN PRN Reason: Hypoglycemia Heparin Sodium (Porcine) (Heparin Na) 5,000 unit SC Q8 [facility] Last Admin: 12/25/19 06:09 Dose: 5,000 unit Documented by: Pantoprazole Sodium 40 mg/ (Sodium Chloride) 110 mls @ 330 mls/hr IV Q24 [facility] Last Infusion: 12/24/19 09:33 Dose: Infused Documented by: Dextrose (Dextrose 10%-Water) 250 mls @ 999 mls/hr IV .Q16M PRN; Protocol PRN Reason: HYPOGLYCEMIA Insulin Human Lispro (Humalog Kwikpen (Bkc)) 0 unit SC Q6 [facility]OM; Protocol Last Admin: 12/25/19 06:08 Dose: Not Given Documented by: Labetalol HCl (Trandate) 10 mg IV Q4H PRN PRN PRN Reason: SBP > 160 Morphine Sulfate () 2 mg IV Q3H PRN PRN PRN Reason: Pain Score 6-10/10 Ondansetron HCl (Zofran) 4 mg IV Q8H PRN PRN PRN Reason: NAUSEA/VOMITING Sodium Chloride () 10 - 40 ml IV UD PRN PRN Reason: SALINE FLUSH Last Admin: 12/25/19 06:12 Dose: 10 ml Documented by: Medical Necessity - Tobacco Use Smoking Status: Former smoker Tobacco Use: Cigars, Chew, Pipe Assessment/Plan All Active Problems (Last Reviewed 12/23/19 @ 23:09 by Kirill Hawk MD) SBO (small bowel obstruction) (Acute) 84-year-old male with bowel obstruction, history about obstruction/lysis of adhesions 1. Continue n.p.o./IV fluids/NG will check acute abdominal series, patient did have some flatus and bowel movement yesterday however no more since then. We will continue to treat conservatively. Patient is agreeable with plan as he would prefer not to have surgery if possible. Addendum: pt does have stool and gas in colon, but due to the increased NG output will continue NG until increased BF Romelia Souza M.D. Pager: [phone] [facility] [place] [facility] [address] [place] [address], [facility], [address] [place] [address] Office: [phone]
[2019-12-25 08:47] LABS: Anion Gap 4 (5-15); BUN 22 mg/dL (7-18); BUN/Creat Ratio 21.6 RATIO (10-20); Calcium,Total 8.5 mg/dL (8.5-10.1); Chloride 110 mmol/L (98-107); Creatinine, Serum 1.02 mg/dL (0.70-1.30); EST Glomerular Filtration Rate 74 mL/min (>60); Est Glom Filt Rate - Afr Amer 89 mL/min (>60); Estimated Creatinine Clearance 57.42 ml/min; Glucose 128 mg/dL (74-106); Potassium 3.9 mmol/L (3.5-5.1); Sodium Level 143 mmol/L (136-145)
[2019-12-25 12:05] LABS: Bedside Glucose 106 mg/dL (70-110)
--- NOTE | 2019-12-25 13:41 | PCM.PN.HOSP ---
Patient Problems: Active and Suspected Problems (Last Reviewed 12/23/19 @ 23:09 by Kirill Hawk MD) SBO (small bowel obstruction) (Acute) Reason for Visit: Follow-up on small bowel obstruction Subjective: Patient was seen and examined. He is passed a small amount of flatus. NG-tube output has been 500mls overnight. Patient is scheduled to have NG tube removed. Objective: Physical exam: General: Alert, Oriented x3, Cooperative, NG tube in situ HEENT: Atraumatic, PERRLA, EOMI, Normocephalic Neck: Supple, No JVD, Negative Carotid Bruits Lungs: Clear to auscultation, Normal air movement Cardiovascular: Regular rate, Normal S1, Normal S2, No murmurs Abdomen: Bowel Sounds Present, Soft, Non Tender Extremities: No edema, Capillary Refill Less than 3 Seconds Skin: No rashes, No breakdown Musculoskeletal: No Tenderness to Palpation of Joints or Extremities Neurological: Cranial nerves II-XII grossly intact Psych/Mental Status: Normal Affect, Appropriate Vitals/I&O's: Vital Signs Temp Pulse Resp BP Pulse Ox 98.7 F 78 18 142/62 H 97 12/25/19 09:26 12/25/19 13:00 12/25/19 09:26 12/25/19 09:26 12/25/19 09:26 Oxygen Delivery Method Room Air Weight: 111.1 kg Body Mass Index (BMI) 34.1 Intake and Output for Last 24 Hours 12/23/19 12/24/19 12/25/19 23:59 23:59 23:59 Intake Total 560.00 / 560.00 2098.33 / 2098.33 1200 / 1200 Output Total 300 / 600 700 / 700 700 / 700 Balance 260.00 / -40.00 1398.33 / 1398.33 500 / 500 Laboratory Results 12/24/19 17:13: POC Glucose 118 H 12/25/19 00:00: POC Glucose 120 H 12/25/19 06:08: POC Glucose 122 H 12/25/19 08:14: Sodium 143, Potassium 3.9, Chloride 110 H, Carbon Dioxide 29.0, Anion Gap 4 L, BUN 22 H, Creatinine 1.02, Estim Creat Clear Calc 57.42, Est GFR (MDRD) Af Amer 89, Est GFR (MDRD) Non-Af 74, BUN/Creatinine Ratio 21.6 H, Glucose 128 H, Calcium 8.5 12/25/19 11:52: POC Glucose 106 Current Medications Enalaprilat (Vasotec) 1.25 mg IV Q6 [facility] Last Admin: 12/25/19 11:55 Dose: 1.25 mg Documented by: Glucagon () 1 mg IM .X1 PRN PRN Reason: Hypoglycemia Heparin Sodium (Porcine) (Heparin Na) 5,000 unit SC Q8 [facility] Last Admin: 12/25/19 06:09 Dose: 5,000 unit Documented by: Pantoprazole Sodium 40 mg/ (Sodium Chloride) 110 mls @ 330 mls/hr IV Q24 [facility] Last Infusion: 12/25/19 11:51 Dose: Infused Documented by: Dextrose (Dextrose 10%-Water) 250 mls @ 999 mls/hr IV .Q16M PRN; Protocol PRN Reason: HYPOGLYCEMIA Sodium Chloride () 1,000 mls @ 100 mls/hr IV .Q10H [facility]OM Insulin Human Lispro (Humalog Kwikpen (Bkc)) 0 unit SC Q6 [facility]OM; Protocol Last Admin: 12/25/19 11:52 Dose: Not Given Documented by: Labetalol HCl (Trandate) 10 mg IV Q4H PRN PRN PRN Reason: SBP > 160 Morphine Sulfate () 2 mg IV Q3H PRN PRN PRN Reason: Pain Score 6-10/10 Ondansetron HCl (Zofran) 4 mg IV Q8H PRN PRN PRN Reason: NAUSEA/VOMITING Sodium Chloride () 10 - 40 ml IV UD PRN PRN Reason: SALINE FLUSH Last Admin: 12/25/19 12:16 Dose: 10 ml Documented by: STROKE Vital Signs/Narrative: Vital Signs Pulse 12/25/19 13:00 78 Medical Necessity - Tobacco Use Smoking Status: Former smoker Tobacco Use: Cigars, Chew, Pipe Assessment/Plan All Active Problems (Last Reviewed 12/23/19 @ 23:09 by Kirill Hawk MD) SBO (small bowel obstruction) (Acute) 84-year-old with past medical history of CAD status post CABG, history of multiple abdominal surgeries, including colon resection for colon cancer, hypertension who was admitted with abdominal pain, nausea and vomiting. 1. Acute recurrent bowel obstruction, likely small bowel, status post NG tube placement Being managed conservatively, General surgery following Continue with NG tube, IV hydration, pain control Follow-up on general surgery recommendations 2. Hypertension, controlled, continue with PRN medications as home medications are on hold 3. Leukocytosis likely secondary to dehydration/bowel obstruction, resolved with hydration 4. Type 2 DM, blood sugars are controlled, not on meds at home, Will continue with blood glucose checks and ISS 5. CAD status post CABG/hyperlipidemia, appears stable, Aspirin, Plavix and Crestor on hold for now 6. CKD stage 3, Cr is close to his baseline 7. DVT PPx- Heparin SC Code Visit Inpatient E&M: 79611 Subs Hosp L2
[2019-12-25] MEDS: 0.9% Normal Saline 1,000 ML 100 ML IV (14:23)
--- NOTE | 2019-12-25 17:25 | NURSING ---
Just walked in [facility] again. Had a bowel movement before walking. This nurse saw it, BM was soft, Medium sized and formed.
[2019-12-25 17:41] LABS: Bedside Glucose 118 mg/dL (70-110)
[2019-12-26] VITALS (8 sets, daily range): BP systolic 131–166; BP diastolic 61–74; PULSE 60–79; RESP 18; TEMP 36.7–37.4; O2SAT 94–96
[2019-12-26] MEDS: Enalaprilat 1.25 MG/ML Vial IV ×2 (00:02→06:32)
[2019-12-26] MEDS: 0.9% Normal Saline 1,000 ML 100 ML IV (00:07)
[2019-12-26 00:10] LABS: Bedside Glucose 106 mg/dL (70-110)
[2019-12-26] MEDS: Heparin Injection (Vial) 5,000 UNIT/ML VIAL 5000 UNIT SC ×3 (06:32→21:04)
[2019-12-26 07:02] LABS: Anion Gap 5 (5-15); BUN 17 mg/dL (7-18); BUN/Creat Ratio 19.1 RATIO (10-20); Calcium,Total 8.1 mg/dL (8.5-10.1); Chloride 112 mmol/L (98-107); Creatinine, Serum 0.89 mg/dL (0.70-1.30); EST Glomerular Filtration Rate 86 mL/min (>60); Est Glom Filt Rate - Afr Amer 105 mL/min (>60); Estimated Creatinine Clearance 65.81 ml/min; Glucose 93 mg/dL (74-106); Potassium 3.6 mmol/L (3.5-5.1); Sodium Level 143 mmol/L (136-145)
--- NOTE | 2019-12-26 07:15 | RAD_ITS ---
STUDY: X-RAY - ABDOMEN/PELVIS REASON FOR EXAM: Male, 84 years old. sbo TECHNIQUE: Single AP view of the abdomen / pelvis. COMPARISON: 12/25/2019 FINDINGS: Enteric tube has been removed. No dilated loops of small bowel. Colonic gas confirmed. There is no demonstrated free abdominal air. The visualized liver, spleen and kidneys are grossly normal in size and morphology. There are metallic implants of the prostate gland. Normal visualized osseous structures. RAD/Abdomen Single View IMPRESSION: Removal of enteric tube. Nonobstructive bowel gas pattern. Electronically Signed: Grayson Medina MD ([place]) at 14:32 EST , Service support ,
[2019-12-26 07:25] LABS: Bedside Glucose 93 mg/dL (70-110)
--- NOTE | 2019-12-26 08:58 | PCM.PN.SRG ---
Patient Problems: Active and Suspected Problems (Last Reviewed 12/23/19 @ 23:09 by Kirill Hawk MD) SBO (small bowel obstruction) (Acute) Subjective: Patient had flatus and additional bowel movements yesterday, NG had minimal output was removed. Patient still states he has no nausea and no abdominal pain and still having flatus this morning. KUB does show gas in the colon along with some stool - Physical Exam Vitals/I&O's: Vital Signs Temp Pulse Resp BP Pulse Ox 98.2 F 60 18 131/72 H 96 12/26/19 03:39 12/26/19 05:00 12/26/19 03:39 12/26/19 03:39 12/26/19 03:39 Oxygen Delivery Method Room Air Weight: 244 lb 14.937 oz Body Mass Index (BMI) 34.1 Intake and Output for Last 24 Hours 12/24/19 12/25/19 12/26/19 23:59 23:59 23:59 Intake Total 2098.33 / 2098.33 1320 / 1320 1753.33 / 1753.33 Output Total 700 / 700 875 / 875 Balance 1398.33 / 1398.33 445 / 445 1753.33 / 1753.33 General: Alert, Oriented x3, Cooperative, No apparent distress HEENT: Atraumatic Lungs: Normal air movement Cardiovascular: Regular rate Abdomen: Soft, Non Tender, Non-Distended Extremities: No clubbing, No cyanosis, No edema Laboratory Results 12/25/19 11:52: POC Glucose 106 12/25/19 17:36: POC Glucose 118 H 12/26/19 00:01: POC Glucose 106 12/26/19 05:35: Sodium 143, Potassium 3.6, Chloride 112 H, Carbon Dioxide 26.0, Anion Gap 5, BUN 17, Creatinine 0.89, Estim Creat Clear Calc 65.81, Est GFR (MDRD) Af Amer 105, Est GFR (MDRD) Non-Af 86, BUN/Creatinine Ratio 19.1, Glucose 93, Calcium 8.1 L 12/26/19 06:29: POC Glucose 93 Current Medications Enalaprilat (Vasotec) 1.25 mg IV Q6 [facility] Last Admin: 12/26/19 06:32 Dose: 1.25 mg Documented by: Glucagon () 1 mg IM .X1 PRN PRN Reason: Hypoglycemia Heparin Sodium (Porcine) (Heparin Na) 5,000 unit SC Q8 [facility] Last Admin: 12/26/19 06:32 Dose: 5,000 unit Documented by: Pantoprazole Sodium 40 mg/ (Sodium Chloride) 110 mls @ 330 mls/hr IV Q24 [facility] Last Infusion: 12/25/19 11:51 Dose: Infused Documented by: Dextrose (Dextrose 10%-Water) 250 mls @ 999 mls/hr IV .Q16M PRN; Protocol PRN Reason: HYPOGLYCEMIA Sodium Chloride () 1,000 mls @ 100 mls/hr IV .Q10H [facility] Last Infusion: 12/26/19 07:55 Dose: 0 mls/hr Documented by: Insulin Human Lispro (Humalog Kwikpen (Bkc)) 0 unit SC Q6 [facility]; Protocol Last Admin: 12/26/19 06:30 Dose: Not Given Documented by: Labetalol HCl (Trandate) 10 mg IV Q4H PRN PRN PRN Reason: SBP > 160 Morphine Sulfate () 2 mg IV Q3H PRN PRN PRN Reason: Pain Score 6-10/10 Ondansetron HCl (Zofran) 4 mg IV Q8H PRN PRN PRN Reason: NAUSEA/VOMITING Sodium Chloride () 10 - 40 ml IV UD PRN PRN Reason: SALINE FLUSH Last Admin: 12/25/19 17:33 Dose: 10 ml Documented by: Medical Necessity - Tobacco Use Smoking Status: Former smoker Tobacco Use: Cigars, Chew, Pipe Assessment/Plan All Active Problems (Last Reviewed 12/23/19 @ 23:09 by Kirill Hawk MD) SBO (small bowel obstruction) (Acute) 84-year-old male with bowel obstruction, history about obstruction/lysis of adhesions 1. Patient been having flatus and has a couple bowel movements yesterday. KUB does show gas and stool in the colon and no obvious dilated small bowel. Will advance to carmen Souza M.D. Pager: [phone] [facility] [address] [place] [address], [facility] [place], [address] [place] [address] Office: [phone] Code Visit Inpatient E&M: 34315 Subs Hosp L1
--- NOTE | 2019-12-26 10:01 | PCM.PN.HOSP ---
Patient Problems: Active and Suspected Problems (Last Reviewed 12/23/19 @ 23:09 by Kirill Hawk MD) SBO (small bowel obstruction) (Acute) Reason for Visit: Follow-up on diverticulitis Subjective: Patient was seen and examined. His NG tube was taken out yesterday. He has been started on clear diet and advanced as he tolerates. He had bowel movement yesterday and has passed flatus several times. Objective: Physical exam: General: Alert, Oriented x3, Cooperative HEENT: Atraumatic, PERRLA, EOMI, Normocephalic Neck: Supple, No JVD, Negative Carotid Bruits Lungs: Clear to auscultation, Normal air movement Cardiovascular: Regular rate, Normal S1, Normal S2, No murmurs Abdomen: Bowel Sounds Present, Soft, Non Tender Extremities: No edema, Capillary Refill Less than 3 Seconds Skin: No rashes, No breakdown Musculoskeletal: No Tenderness to Palpation of Joints or Extremities Neurological: Cranial nerves II-XII grossly intact Psych/Mental Status: Normal Affect, Appropriate Vitals/I&O's: Vital Signs Temp Pulse Resp BP Pulse Ox 99.3 F H 73 18 166/74 H 95 12/26/19 09:48 12/26/19 09:48 12/26/19 09:48 12/26/19 09:48 12/26/19 09:48 Oxygen Delivery Method Room Air Weight: 111.1 kg Body Mass Index (BMI) 34.1 Intake and Output for Last 24 Hours 12/24/19 12/25/19 12/26/19 23:59 23:59 23:59 Intake Total 2098.33 / 2098.33 1320 / 1320 1753.33 / 1753.33 Output Total 700 / 700 875 / 875 Balance 1398.33 / 1398.33 445 / 445 1753.33 / 1753.33 Laboratory Results 12/25/19 11:52: POC Glucose 106 12/25/19 17:36: POC Glucose 118 H 12/26/19 00:01: POC Glucose 106 12/26/19 05:35: Sodium 143, Potassium 3.6, Chloride 112 H, Carbon Dioxide 26.0, Anion Gap 5, BUN 17, Creatinine 0.89, Estim Creat Clear Calc 65.81, Est GFR (MDRD) Af Amer 105, Est GFR (MDRD) Non-Af 86, BUN/Creatinine Ratio 19.1, Glucose 93, Calcium 8.1 L 12/26/19 06:29: POC Glucose 93 Current Medications Amlodipine Besylate (Norvasc) 2.5 mg PO DAILY [facility] Aspirin (Aspirin, Baby) 81 mg PO DAILY@0800 [facility] Clopidogrel Bisulfate (Plavix) 75 mg PO DAILY [facility] Glucagon () 1 mg IM .X1 PRN PRN Reason: Hypoglycemia Heparin Sodium (Porcine) (Heparin Na) 5,000 unit SC Q8 [facility] Last Admin: 12/26/19 06:32 Dose: 5,000 unit Documented by: Hydrochlorothiazide (Hctz) 25 mg PO DAILY [facility] Dextrose (Dextrose 10%-Water) 250 mls @ 999 mls/hr IV .Q16M PRN; Protocol PRN Reason: HYPOGLYCEMIA Insulin Human Lispro (Humalog Kwikpen (Bkc)) 0 unit SC Q6 [facility]; Protocol Last Admin: 12/26/19 06:30 Dose: Not Given Documented by: Metoprolol Tartrate (Lopressor (Beta Morena)) 50 mg PO BID [facility] Morphine Sulfate () 2 mg IV Q3H PRN PRN PRN Reason: Pain Score 6-10/10 Nitroglycerin (Nitrostat) 0.4 mg SUBLINGUAL Q5M PRN PRN Reason: CHEST Non-Formulary Medication (Rosuvastatin) 20 mg PO QHS [facility] Ondansetron HCl (Zofran) 4 mg IV Q8H PRN PRN PRN Reason: NAUSEA/VOMITING Pantoprazole Sodium (Protonix) 20 mg PO DAILY [facility] Pantoprazole Sodium (Protonix) 40 mg PO QODAY [facility] Ramipril (Altace) 10 mg PO BID [facility] Sodium Chloride () 10 - 40 ml IV UD PRN PRN Reason: SALINE FLUSH Last Admin: 12/25/19 17:33 Dose: 10 ml Documented by: STROKE Vital Signs/Narrative: Vital Signs Temp Pulse Resp BP Pulse Ox 12/26/19 09:48 99.3 F H 73 18 166/74 H 95 Medical Necessity - Tobacco Use Smoking Status: Former smoker Tobacco Use: Cigars, Chew, Pipe Assessment/Plan All Active Problems (Last Reviewed 12/23/19 @ 23:09 by Kirill Hawk MD) SBO (small bowel obstruction) (Acute) 84-year-old with past medical history of CAD status post CABG, history of multiple abdominal surgeries, including colon resection for colon cancer, hypertension who was admitted with abdominal pain, nausea and vomiting. 1. Acute recurrent bowel obstruction, small bowel, improving Being managed conservatively, General surgery following Will continue with advancement in diet and conservative management 2. Hypertension, controlled, resume home meds 3. Leukocytosis likely secondary to dehydration/bowel obstruction, resolved with hydration 4. Type 2 DM, blood sugars are controlled, not on meds at home, Will continue with blood glucose checks and ISS 5. CAD status post CABG/hyperlipidemia, appears stable, Aspirin, Plavix and Crestor on hold for now 6. CKD stage 3, Cr is close to his baseline 7. DVT PPx- Heparin SC Code Visit Inpatient E&M: 60037 Subs Hosp L2
[2019-12-26] MEDS: Metoprolol Tartrate 50 MG Tablet PO ×2 (11:27→21:04)
[2019-12-26] MEDS: Aspirin 81 MG TAB.CHEW PO (11:27)
[2019-12-26] MEDS: Pantoprazole Sodium 20 MG Tablet PO (11:27)
[2019-12-26] MEDS: hydroCHLOROthiazide 25 MG Tablet PO (11:28)
[2019-12-26] MEDS: Ramipril 10 MG Capsule PO ×2 (11:28→21:04)
[2019-12-26] MEDS: amLODIPine 2.5 MG Tablet PO (11:28)
[2019-12-26] MEDS: Clopidogrel Bisulfate 75 MG Tablet PO (11:28)
[2019-12-26] MEDS: Insulin Lispro 100 UNIT/ML INSULN.PEN SC ×2 (11:31→21:07)
[2019-12-26 11:46] LABS: Bedside Glucose 165 mg/dL (70-110)
[2019-12-26 16:55] LABS: Bedside Glucose 134 mg/dL (70-110)
[2019-12-26] MEDS: Atorvastatin Calcium 40 MG Tablet PO (21:04)
[2019-12-26 23:01] LABS: Bedside Glucose 154 mg/dL (70-110)
[2019-12-27 03:43] VITALS: BP 142/64; PULSE 69; RESP 18; TEMP 36.7; O2SAT 95
[2019-12-27] MEDS: Heparin Injection (Vial) 5,000 UNIT/ML VIAL 5000 UNIT SC (06:49)
[2019-12-27 07:41] LABS: Bedside Glucose 143 mg/dL (70-110)
--- NOTE | 2019-12-27 07:53 | PN_ITS ---
Patient Problems: Active and Suspected Problems (Last Reviewed 12/23/19 @ 23:09 by Kirill Hawk MD) SBO (small bowel obstruction) (Acute) Subjective: Patient notes feeling well, no acute events overnight, continued flatus and bowel movements ongoing including early a.m. Patient denies any recurrent distention or abdominal pain. Patient evaluated also by general surgery this morning and diet advanced with tolerance of breakfast. Patient very eager for discharge. Patient denies fevers, chills, recurrent or worsened nausea, emesis, abdominal pain, chest pain or dyspnea. Objective: Physical Examination: General: awake, alert, oriented x 3 and cooperative, seated upright in the bed, no acute distress, eager for discharge. Skin: normal color, turgor, no icterus, cyanosis. HEENT: AT/NC, EOMI, PERRLA, MMM. Lungs: CTA bilaterally, moderate effort, mild decrease BL bases, no rales, ronchi or wheezing. Heart: Regular rate and rhythm; no gallop, rub audible. Abdomen: soft, pes, NTTP, ND, normalized BS. Extremities: no cyanosis, clubbing, or edema. Neurological: patient awake, alert, oriented x 3; cognitive function intact; pupils equally reactive to light and accomodation; cranial nerves II-XII grossly normal, moving all 4 extremities, no focal deficits, strength mildly global decrease given recent presentation but improved. Psychiatric: affect appears normal, eager for discharge, no acute evidence of depressive or anxiety feelings. Vitals/I&O's: Vital Signs Temp Pulse Resp BP Pulse Ox 98.1 F 69 18 142/64 H 95 12/27/19 03:43 12/27/19 03:43 12/27/19 03:43 12/27/19 03:43 12/27/19 03:43 Oxygen Delivery Method Room Air Weight: 244 lb 14.937 oz Body Mass Index (BMI) 34.1 Intake and Output for Last 24 Hours 12/25/19 12/26/19 12/27/19 23:59 23:59 23:59 Intake Total 1320 / 1320 2630.00 / 2630.00 240 / 240 Output Total 875 / 875 Balance 445 / 445 2630.00 / 2630.00 240 / 240 Laboratory Results 12/26/19 11:25: POC Glucose 165 H 12/26/19 16:51: POC Glucose 134 H 12/26/19 21:07: POC Glucose 154 H 12/27/19 06:48: POC Glucose 143 H Current Medications Amlodipine Besylate (Norvasc) 2.5 mg PO DAILY COUNT INCLUDES [facility] Last Admin: 12/26/19 11:28 Dose: 2.5 mg Documented by: Aspirin (Aspirin, Baby) 81 mg PO DAILY@0800 [facility]CLUDES [facility] Last Admin: 12/26/19 11:27 Dose: 81 mg Documented by: Atorvastatin Calcium (Lipitor) 40 mg PO QHS COUNT INCLUDES [facility] Last Admin: 12/26/19 21:04 Dose: 40 mg Documented by: Clopidogrel Bisulfate (Plavix) 75 mg PO DAILY COUNT INCLUDES [facility] Last Admin: 12/26/19 11:28 Dose: 75 mg Documented by: Glucagon () 1 mg IM .X1 PRN PRN Reason: Hypoglycemia Heparin Sodium (Porcine) (Heparin Na) 5,000 unit SC Q8 COUNT INCLUDES [facility] Last Admin: 12/27/19 06:49 Dose: 5,000 unit Documented by: Hydrochlorothiazide (Hctz) 25 mg PO DAILY COUNT INCLUDES [facility] Last Admin: 12/26/19 11:28 Dose: 25 mg Documented by: Dextrose (Dextrose 10%-Water) 250 mls @ 999 mls/hr IV .Q16M PRN; Protocol PRN Reason: HYPOGLYCEMIA Insulin Human Lispro (Humalog Kwikpen (Bkc)) 0 unit SC ACHS COUNT INCLUDES THE [facility]; Protocol Last Admin: 12/27/19 06:49 Dose: Not Given Documented by: Metoprolol Tartrate (Lopressor (Beta Morena)) 50 mg PO BID COUNT INCLUDES [facility] Last Admin: 12/26/19 21:04 Dose: 50 mg Documented by: Morphine Sulfate () 2 mg IV Q3H PRN PRN PRN Reason: Pain Score 6-10/10 Nitroglycerin (Nitrostat) 0.4 mg SUBLINGUAL Q5M PRN PRN Reason: CHEST Ondansetron HCl (Zofran) 4 mg IV Q8H PRN PRN PRN Reason: NAUSEA/VOMITING Pantoprazole Sodium (Protonix) 20 mg PO DAILY COUNT INCLUDES [facility] Last Admin: 12/26/19 11:27 Dose: 20 mg Documented by: Ramipril (Altace) 10 mg PO BID COUNT INCLUDES [facility] Last Admin: 12/26/19 21:04 Dose: 10 mg Documented by: Sodium Chloride () 10 - 40 ml IV UD PRN PRN Reason: SALINE FLUSH Last Admin: 12/25/19 17:33 Dose: 10 ml Documented by: Medical Necessity - Tobacco Use Smoking Status: Former smoker Tobacco Use: Cigars, Chew, Pipe Assessment/Plan All Active Problems (Last Reviewed 12/23/19 @ 23:09 by Kirill Hawk MD) SBO (small bowel obstruction) (Acute) The patient is an 84 y/o M w/ PMHx: CAD s/p CABG x 4, HTN, HLD, Hx Colon CA s/p resection, PAF s/p MAZE 2003, Diabetes mellitus type II, BPH who presents to the [facility] ED on 12/23/19 with history of abdominal pain, primarily LLQ with nausea, emesis and distention with last BM 2 days prior to presentation. 1. Abdominal pain, nausea, emesis w/ SBO: In the ED work-up included CT A/P w/ findings concerning for recurrent small bowel obstruction with a left inguinal hernia containing bowel but no evidence of incarceration. Admitted to [place], maintained on IVFs, initiated NGT to suction upon presentation w/ removal once flatus and BM restarted, continue strict I&Os, IV pain/anti-emetics PRN, serial KUBs obtained to montior bowel function w/ improvement, initially NPO status, currently transitioned clears-->transitional diet given onset flatus and BMs. General surgery Dr. Souza consulted and following. Possible discharge to home today, will review with surgery. 2. History of colon cancer: Status post resection, complicates presentation with prior history of SBO, acute presentation as noted #1, resolving. 3. CAD: s/p CABG, continue home aspirin, Plavix, statin, metoprolol, ramipril regimen. 4. Hypertension: Continue home regimen including Norvasc, metoprolol, hydrochlorothiazide, ramipril, PRN hydralazine. 5. Hyperlipidemia: Continue home statin regimen. 6. Diabetes mellitus type II: Not on oral regimen or insulin therapy, currently on transitional diet with advancement to ADA diet once cleared per general surgery, accu checks w/ ISS. 7. PAF: s/p MAZE 2003, maintained on metoprolol, not anticoagulated status post maze. 8. BPH: Not on regimen, may add Flomax if necessitated. 9. GERD: Maintained on PPI. 10. DVT prophylaxis: SCDs, heparin. Code Visit Inpatient E&M: 72519 Subs Hosp L2
--- NOTE | 2019-12-27 08:21 | PCM.PN.SRG ---
Patient Problems: Active and Suspected Problems (Last Reviewed 12/23/19 @ 23:09 by Kirill Hawk MD) SBO (small bowel obstruction) (Acute) Subjective: Patient did well with liquid diet yesterday with no nausea or vomiting. He has no abdominal pain today. He is passing flatus and had a bowel movement this morning. - Physical Exam Vitals/I&O's: Vital Signs Temp Pulse Resp BP Pulse Ox 98.1 F 69 18 142/64 H 95 12/27/19 03:43 12/27/19 03:43 12/27/19 03:43 12/27/19 03:43 12/27/19 03:43 Oxygen Delivery Method Room Air Weight: 244 lb 14.937 oz Body Mass Index (BMI) 34.1 Intake and Output for Last 24 Hours 12/25/19 12/26/19 12/27/19 23:59 23:59 23:59 Intake Total 1320 / 1320 2630.00 / 2630.00 240 / 240 Output Total 875 / 875 Balance 445 / 445 2630.00 / 2630.00 240 / 240 General: Alert, Oriented x3 Neck: Supple Lungs: Normal air movement Cardiovascular: Regular rate, Regular Rhythm Abdomen: Soft, Non Tender, Non-Distended Laboratory Results 12/26/19 11:25: POC Glucose 165 H 12/26/19 16:51: POC Glucose 134 H 12/26/19 21:07: POC Glucose 154 H 12/27/19 06:48: POC Glucose 143 H Current Medications Amlodipine Besylate (Norvasc) 2.5 mg PO DAILY [facility] Last Admin: 12/26/19 11:28 Dose: 2.5 mg Documented by: Aspirin (Aspirin, Baby) 81 mg PO DAILY@0800 [facility] Last Admin: 12/26/19 11:27 Dose: 81 mg Documented by: Atorvastatin Calcium (Lipitor) 40 mg PO QHS [facility] Last Admin: 12/26/19 21:04 Dose: 40 mg Documented by: Clopidogrel Bisulfate (Plavix) 75 mg PO DAILY [facility] Last Admin: 12/26/19 11:28 Dose: 75 mg Documented by: Glucagon () 1 mg IM .X1 PRN PRN Reason: Hypoglycemia Heparin Sodium (Porcine) (Heparin Na) 5,000 unit SC Q8 [facility] Last Admin: 12/27/19 06:49 Dose: 5,000 unit Documented by: Hydrochlorothiazide (Hctz) 25 mg PO DAILY [facility] Last Admin: 12/26/19 11:28 Dose: 25 mg Documented by: Dextrose (Dextrose 10%-Water) 250 mls @ 999 mls/hr IV .Q16M PRN; Protocol PRN Reason: HYPOGLYCEMIA Insulin Human Lispro (Humalog Kwikpen (Bkc)) 0 unit SC ACHS [facility]; Protocol Last Admin: 12/27/19 06:49 Dose: Not Given Documented by: Metoprolol Tartrate (Lopressor (Beta Morena)) 50 mg PO BID [facility] Last Admin: 12/26/19 21:04 Dose: 50 mg Documented by: Morphine Sulfate () 2 mg IV Q3H PRN PRN PRN Reason: Pain Score 6-10/10 Nitroglycerin (Nitrostat) 0.4 mg SUBLINGUAL Q5M PRN PRN Reason: CHEST Ondansetron HCl (Zofran) 4 mg IV Q8H PRN PRN PRN Reason: NAUSEA/VOMITING Pantoprazole Sodium (Protonix) 20 mg PO DAILY [facility] Last Admin: 12/26/19 11:27 Dose: 20 mg Documented by: Ramipril (Altace) 10 mg PO BID [facility] Last Admin: 12/26/19 21:04 Dose: 10 mg Documented by: Sodium Chloride () 10 - 40 ml IV UD PRN PRN Reason: SALINE FLUSH Last Admin: 12/25/19 17:33 Dose: 10 ml Documented by: Medical Necessity - Tobacco Use Smoking Status: Former smoker Tobacco Use: Cigars, Chew, Pipe Assessment/Plan All Active Problems (Last Reviewed 12/23/19 @ 23:09 by Kirill Hawk MD) SBO (small bowel obstruction) (Acute) 84-year-old male resolved small bowel obstruction 1. Patient appears to be doing better. We will have him try regular food today. If he tolerates that he may be discharged home. Mike Rodriguez MD Pager: [facility] [address] [place] [address], [address] [place] [address] Office:
[2019-12-27 08:31] VITALS: BP 168/67; PULSE 75; RESP 20; TEMP 36.7; O2SAT 97
[2019-12-27 08:35] VITALS: PULSE 75
[2019-12-27] MEDS: hydroCHLOROthiazide 25 MG Tablet PO (08:35)
[2019-12-27] MEDS: Metoprolol Tartrate 50 MG Tablet PO (08:35)
[2019-12-27] MEDS: Ramipril 10 MG Capsule PO (08:36)
[2019-12-27] MEDS: Pantoprazole Sodium 20 MG Tablet PO (08:36)
[2019-12-27] MEDS: amLODIPine 2.5 MG Tablet PO (08:36)
[2019-12-27] MEDS: Aspirin 81 MG TAB.CHEW PO (08:36)
[2019-12-27] MEDS: Clopidogrel Bisulfate 75 MG Tablet PO (08:37)
--- NOTE | 2019-12-27 10:20 | DCINST_ITS ---
- Discharge Diagnoses Current Active Problems: Current Active and Chronic Problems (Last Reviewed 12/23/19 @ 23:09 by Kirill Hawk MD) 1. Abdominal pain, nausea, emesis w/ SBO 2. History of colon cancer 3. CAD 4. Hypertension 5. Hyperlipidemia 6. Diabetes mellitus type II 7. PAF 8. BPH 9. GERD You will use the following diet at home:: Calorie/Carbohydrate Controlled (specify 1200, 1400, etc) - Recommend cardiac/ADA with alterations per surgery discretion. Your food should be the consistency of: Regular Your liquids should be the consistency of: Regular/Thin Discharge Activity: Return to Normal Activity - Encourage regular activity. May resume sexual activity in: No Restrictions Weight Bearing Status: Weight bearing as tolerated Call your doctor if you observe: Fever of 101 or Higher, Inability to urinate, Inability to have a bowel movement, Shortness of breath, Dizziness, Fainting spells, Chest pain, Uncontrolled pain Instructions: Small Bowel Obstruction Additional Instructions: Please continue to follow outpatient with your primary care physician. Currently per your list you are not on diabetic regimen with history. Please continue aggressive lifestyle changes and diet changes to maintain appropriate blood sugar parameters. Continue to follow your levels as needed with your primary care physician and initiate regimen if clinically becomes appropriate. Allergies/Adverse Reactions: Allergies Sulfa (Sulfonamide Antibiotics) Allergy (Verified 12/23/19 17:50) itching, headache cyclobenzaprine Adverse Reaction (Verified 12/23/19 17:50) severe headache Medications to take at Discharge Aspirin [Aspirin, Baby] 81 mg PO DAILY@0800 11/29/14 Nitroglycerin (INPATIENT USE) [Nitrostat] 0.4 mg SUBLINGUAL Q5M PRN 11/29/14 Pantoprazole Sodium [Protonix] 40 mg PO QODAY 04/09/17 rosuvastatin 20 mg tablet 20 mg PO QHS #90 tab 03/05/19 clopidogrel 75 mg tablet 75 mg PO DAILY #90 tab 06/02/19 Amlodipine Besylate 2.5 mg PO DAILY 12/23/19 Hydrochlorothiazide [Hctz] 25 mg PO DAILY 12/23/19 Metoprolol Tartrate [Lopressor (beta gabriella)] 50 mg PO BID 12/23/19 Ramipril 10 mg PO BID 12/23/19 Primary Care Physician: Saul Clark MD [Primary Care Provider] - Please follow up with your Primary Care Physician in: Follow-up within 3-5 days. Test Results: Test results from this visit will be discussed in further detail at your follow- up appointment, if applicable. Please Follow Up With: Romelia Souza MD When: May follow-up as needed if any concerns regarding bowel obstruction. Proposed Discharge Date: 12/27/19
--- NOTE | 2019-12-27 10:25 | PCM.DC.SUM ---
Discharge Date and Diagnosis - Problem List Patient Problems: Active and Suspected Problems (Last Reviewed 12/23/19 @ 23:09 by Kirill Hawk MD) SBO (small bowel obstruction) (Acute) Date of Admission: 12/23/19 Date of Discharge: 12/27/19 - Primary Discharge Diagnosis Active and Suspected Problems (Last Reviewed 12/23/19 @ 23:09 by Kirill Hawk MD) 1. Abdominal pain, nausea, emesis w/ SBO 2. History of colon cancer 3. CAD 4. Hypertension 5. Hyperlipidemia 6. Diabetes mellitus type II 7. PAF 8. BPH 9. GERD - Secondary Discharge Diagnosis Chronic Problems (Last Reviewed 12/23/19 @ 23:09 by Kirill Hawk MD) Atherosclerosis of coronary artery of ruby heart without angina pectoris (Chronic) CABG x 4 [place]-LAD, SVG-Lat Cx, SVG-D1, SVG-RCA w/ MAZE procedure 10/17/2004 H/O coronary artery bypass surgery (Chronic 10/17/04) CABG x 4 [place], SVG-Lat Cx, SVG-D1, SVG-RCA w/ MAZE procedure 10/17/2004 Paroxysmal atrial fibrillation (Chronic) S/P maze procedure on 10/17/2004; Hyperlipidemia (Chronic) Hypertension (Chronic) Old myocardial infarction (Chronic) Hospital Course and Treatment Operations: None Procedures: None Summary of Care Provided: The patient is an 84 y/o M w/ PMHx: CAD s/p CABG x 4, HTN, HLD, Hx Colon CA s/p resection, PAF s/p MAZE 2003, Diabetes mellitus type II, BPH who presents to the [facility] ED on 12/23/19 with history of abdominal pain, primarily LLQ with nausea, emesis and distention with last BM 2 days prior to presentation. In the ED work-up included CT A/P w/ findings concerning for recurrent small bowel obstruction with a left inguinal hernia containing bowel but no evidence of incarceration. Admitted to [place], maintained on IVFs, initiated NGT to suction upon presentation w/ removal once flatus and BM restarted, continue strict I&Os, IV pain/anti-emetics PRN, serial KUBs obtained to montior bowel function w/ improvement, initially NPO status, currently transitioned clears-->transitional diet given onset flatus and BMs w/ eventual tolerance of regular diet transition 1/27/[address] Souza consulted and followed during admission. Given clinical improvement, cleared per Surgery 12/27/19 for discharge to home on advanced diet. Patient Problems: Active and Suspected Problems (Last Reviewed 12/23/19 @ 23:09 by Kirill Hawk MD) SBO (small bowel obstruction) (Acute) - Physical Exam Vitals/I&O's: Vital Signs Temp Pulse Resp BP Pulse Ox 98.0 F 75 20 H 168/67 H 97 12/27/19 08:31 12/27/19 08:35 12/27/19 08:31 12/27/19 08:31 12/27/19 08:31 Oxygen Delivery Method Room Air Weight: 244 lb 14.937 oz Body Mass Index (BMI) 34.1 Intake and Output for Last 24 Hours 12/25/19 12/26/19 12/27/19 23:59 23:59 23:59 Intake Total 1320 / 1320 2630.00 / 2630.00 240 / 240 Output Total 875 / 875 Balance 445 / 445 2630.00 / 2630.00 240 / 240 Laboratory Results 12/26/19 11:25: POC Glucose 165 H 12/26/19 16:51: POC Glucose 134 H 12/26/19 21:07: POC Glucose 154 H 12/27/19 06:48: POC Glucose 143 H Current Medications Amlodipine Besylate (Norvasc) 2.5 mg PO DAILY [facility] Last Admin: 12/27/19 08:36 Dose: 2.5 mg Documented by: Aspirin (Aspirin, Baby) 81 mg PO DAILY@0800 [facility] Last Admin: 12/27/19 08:36 Dose: 81 mg Documented by: Atorvastatin Calcium (Lipitor) 40 mg PO QHS [facility] Last Admin: 12/26/19 21:04 Dose: 40 mg Documented by: Clopidogrel Bisulfate (Plavix) 75 mg PO DAILY [facility] Last Admin: 12/27/19 08:37 Dose: 75 mg Documented by: Glucagon () 1 mg IM .X1 PRN PRN Reason: Hypoglycemia Heparin Sodium (Porcine) (Heparin Na) 5,000 unit SC Q8 [facility] Last Admin: 12/27/19 06:49 Dose: 5,000 unit Documented by: Hydrochlorothiazide (Hctz) 25 mg PO DAILY [facility] Last Admin: 12/27/19 08:35 Dose: 25 mg Documented by: Dextrose (Dextrose 10%-Water) 250 mls @ 999 mls/hr IV .Q16M PRN; Protocol PRN Reason: HYPOGLYCEMIA Insulin Human Lispro (Humalog Kwikpen (Bkc)) 0 unit SC ACHS [facility]; Protocol Last Admin: 12/27/19 06:49 Dose: Not Given Documented by: Metoprolol Tartrate (Lopressor (Beta Morena)) 50 mg PO BID [facility] Last Admin: 12/27/19 08:35 Dose: 50 mg Documented by: Morphine Sulfate () 2 mg IV Q3H PRN PRN PRN Reason: Pain Score 6-10/10 Nitroglycerin (Nitrostat) 0.4 mg SUBLINGUAL Q5M PRN PRN Reason: CHEST Ondansetron HCl (Zofran) 4 mg IV Q8H PRN PRN PRN Reason: NAUSEA/VOMITING Pantoprazole Sodium (Protonix) 20 mg PO DAILY [facility] Last Admin: 12/27/19 08:36 Dose: 20 mg Documented by: Ramipril (Altace) 10 mg PO BID [facility] Last Admin: 12/27/19 08:36 Dose: 10 mg Documented by: Sodium Chloride () 10 - 40 ml IV UD PRN PRN Reason: SALINE FLUSH Last Admin: 12/25/19 17:33 Dose: 10 ml Documented by: Discharge Activity: Return to Normal Activity - Encourage regular activity. May resume sexual activity in: No Restrictions Weight Bearing Status: Weight bearing as tolerated Call your doctor if you observe: Fever of 101 or Higher, Inability to urinate, Inability to have a bowel movement, Shortness of breath, Dizziness, Fainting spells, Chest pain, Uncontrolled pain Home Medications: Medications to take at Discharge Aspirin [Aspirin, Baby] 81 mg PO DAILY@0800 11/29/14 Nitroglycerin (INPATIENT USE) [Nitrostat] 0.4 mg SUBLINGUAL Q5M PRN 11/29/14 Pantoprazole Sodium [Protonix] 40 mg PO QODAY 04/09/17 rosuvastatin 20 mg tablet 20 mg PO QHS #90 tab 03/05/19 clopidogrel 75 mg tablet 75 mg PO DAILY #90 tab 06/02/19 Amlodipine Besylate 2.5 mg PO DAILY 12/23/19 Hydrochlorothiazide [Hctz] 25 mg PO DAILY 12/23/19 Metoprolol Tartrate [Lopressor (beta morena)] 50 mg PO BID 12/23/19 Ramipril 10 mg PO BID 12/23/19 Primary Care Physician: Saul Clark MD [Primary Care Provider] - Please follow up with your Primary Care Physician in: Follow-up within 3-5 days. Please Follow Up With: Romelia Souza MD When: May follow-up as needed if any concerns regarding bowel obstruction. Patient Instructions: Small Bowel Obstruction Disposition: Home Minutes spent on discharge:: 35 Patient Condition:: Fair Medical Necessity - Tobacco Use Smoking Status: Former smoker Tobacco Use: Cigars, Chew, Pipe Meaningful Use Info Meaningful Use Diagnoses (Choose all that apply): None applicable Code Visit Inpatient E&M: 78405 Disch Hosp
--- NOTE | 2019-12-28 12:47 | CASEMGMT ---
FRANCISCO SHELTON DC PHONE CALL DC DATE: 12.27.2019 DC Disposition: Home Diagnosis on Discharge: SBO LACE/STRATA: 11/03 Intro role of CM to patient. Pt states he is feeling well. pt spoke at length re: his feet hurting when he went home from walking @ the hospital. States he soaked in epsom salt and then he rubbed with Rodrigue-wright. States this am his feet were feeling better. Pt states he has his medications, no questions and will be seeing Dr. Clark Friday. Reviewed appointment with pt. Pt did state he felt the mattress in room 313 was wore out and uncomfortable. Email sent to clinical assessment manager to update. Daphney FRENCH RN ACM
== END 2019-12-27 11:02 | disposition home or self-care (01) | DRG 390 ==
LOC: ED 18:34 → MS3 20:56
PROVIDERS: Internal Medicine; Admitting Provider Hospitalist; Emergency Provider Emergency Medicine; PCP Family Medicine; Visit Provider Family Medicine
DX: K56.609 Unspecified intestinal obstruction, unspecified as to partial versus complete obstruction (principal); K40.90 Unilateral inguinal hernia, without obstruction or gangrene, not specified as recurrent; I25.10 Atherosclerotic heart disease of native coronary artery without angina pectoris; E78.5 Hyperlipidemia, unspecified; I48.0 Paroxysmal atrial fibrillation; K21.9 Gastro-esophageal reflux disease without esophagitis; N40.0 Benign prostatic hyperplasia without lower urinary tract symptoms; I12.9 Hypertensive chronic kidney disease with stage 1 through stage 4 chronic kidney disease, or unspecified chronic kidney disease; N18.3 Chronic kidney disease, stage 3 (moderate); E11.65 Type 2 diabetes mellitus with hyperglycemia; E11.22 Type 2 diabetes mellitus with diabetic chronic kidney disease; Z85.038 Personal history of other malignant neoplasm of large intestine; Z87.891 Personal history of nicotine dependence; E86.0 Dehydration
CPT/HCPCS: 36415; 74018; 74019; 74176; 80048; 80053; 81001; 82962; 83605; 83690; 85025; 99285; J7030; A4216; J2405

== ENCOUNTER → 2020-01-31 07:37 | Outpatient (CLI) | payer MEDICARE, SELFPAY ==
[2020-01-20 08:42] VITALS: BMI 31.2
[2020-01-31 10:31] LABS: AST(SGOT) 13 U/L (15-37); Alanine Aminotransfer ALT/SGPT 17 U/L (16-61); Albumin, Serum 3.7 g/dL (3.2-5.0); Alkaline Phosphatase 58 U/L (45-117); Bilirubin, Direct 0.16 mg/dL (0.00-0.30); Cholesterol 145 mg/dL (200); Globulin 3.1 g/dL (2.2-4.2); High Density Lipoprotein 55 mg/dL; Protein, Total 6.8 g/dL (6.4-8.2); Triglycerides 128 mg/dL; Very Low Density Lipoprotein 26 mg/dL (5-40)
== END ==
PROVIDERS: PCP Family Medicine; Referring Provider Internal Medicine Cardiovascular Disease; Visit Provider Internal Medicine Cardiovascular Disease
DX: E78.00 Pure hypercholesterolemia, unspecified (principal); E78.5 Hyperlipidemia, unspecified
CPT/HCPCS: 36415; 80061; 80076

== ENCOUNTER → 2020-02-01 09:45 | Outpatient (CLI) | payer MEDICARE, SELFPAY ==
[2020-01-20 08:42] VITALS: BMI 31.2
--- NOTE | 2020-02-01 09:46 | ECHOD_ITS ---
Reason For Study: S/P CABG Procedure This was a 2D Doppler, Color Flow transthoracic echocardiogram. Exam performed in department. Left Ventricle Moderate assymetric septal hypertrophy. The estimated ejection fraction is 65 %. Stage 2 diastolic dysfunction. No regional wall motion abnormalities noted. Right Ventricle Moderately dilated right ventricle. Normal systolic function. Atria Normal left atrium. Normal right atrium. Normal atrial septum. Mitral Valve The mitral valve is structurally normal. No prolapse or stenosis seen. Trivial mitral valve insufficiency. Tricuspid Valve Normal tricuspid valve. Trivial tricuspid valve insufficiency. Right ventricular systolic pressure estimated to be 35 mmHg. Aortic Valve Trisinus/trileaflet aortic valve. Mild diffuse aortic valve thickening. There is no aortic stenosis. Trivial aortic valve insufficiency. Pulmonic Valve Normal pulmonic valve. Mild (1+) pulmonic valve insufficiency. Great Vessels Calcified aortic root. Normal arch. Normal inferior vena cava. Inferior vena cava collapse with sniff. Pericardium/Pleural No pericardial effusion. MMode/2D Measurements & Calculations LVIDd: 3.9 cm IVSd: 1.6 cm Ao root diam: 3.2 cm LVIDs: 2.6 cm LVPWd: 1.3 cm RVDd: 4.0 cm FS: 33.9 % LAV(MOD-bp): 51.5 ml LA A4 area: 17.3 cm2 LA dimension(2D): 4.9 cm LAV(MOD-bp) Indexed: 23.5 ml/m2 LAV(MOD-sp2): 50.6 ml LAV(MOD-sp4): 50.0 ml RA A4 area: 16.6 cm2 Time Measurements MV dec time: 0.24 sec Doppler Measurements & Calculations MV E max richard: 71.3 cm/sec Lat Peak E' Richard: 7.9 cm/sec Med Peak E' Richard: 6.8 cm/sec MV A max richard: 61.7 cm/sec E/E' lat: 9.0 E/E' med: 10.5 MV E/A: 1.2 Ao V2 max: 140.4 cm/sec AI max richard: 308.6 cm/sec LV V1 max: 99.9 cm/sec Ao max P.9 mmHg AI max P.1 mmHg LV V1 max P.0 mmHg Ao V2 mean: 100.2 cm/sec AI dec slope: 156.6 cm/sec2 LV V1 mean P.3 mmHg Ao mean P.4 mmHg AI P1/2t: 577.1 msec LV V1 mean: 72.4 cm/sec Ao V2 VTI: 27.7 cm LV V1 VTI: 21.0 cm PA V2 max: 103.6 cm/sec PI dec slope: 115.5 cm/sec2 TR max richard: 259.4 cm/sec TR max P.2 mmHg Interpretation Summary The estimated ejection fraction is 65 %. Stage 2 diastolic dysfunction. Moderately dilated right ventricle. Trivial mitral valve insufficiency. Trivial tricuspid valve insufficiency. Right ventricular systolic pressure estimated to be 35 mmHg. Trivial aortic valve insufficiency. Compared to echo report dated 08/23/2015, no appreciable changes noted. Ordering Physician: Jossue Ferro Referring Physician: Saul Clark Performed By: Kirsten Quezada, NATASHA, RVT
== END ==
PROVIDERS: PCP Family Medicine; Referring Provider Internal Medicine Cardiovascular Disease; Visit Provider Internal Medicine Cardiovascular Disease
DX: I25.10 Atherosclerotic heart disease of native coronary artery without angina pectoris (principal)
CPT/HCPCS: 93306

== ENCOUNTER → 2020-10-24 09:39 | Outpatient (CLI) | payer MEDICARE, SELFPAY ==
[2020-05-18 08:33] VITALS: BMI 35.2
[2020-10-24 12:32] LABS: PSA,Total- Diagnostic < 0.01 ng/mL (0.0-4.0)
== END ==
PROVIDERS: PCP Family Medicine; Referring Provider Family Medicine; Visit Provider Nurse Practitioner Family
DX: C61 Malignant neoplasm of prostate (principal)
CPT/HCPCS: 36415; 84153

== ENCOUNTER → 2021-02-12 14:59 | Outpatient (CLI) | payer MEDICARE, SELFPAY ==
[2020-11-13 09:26] VITALS: BMI 34.4
[2021-02-12 17:44] LABS: Basophil# 0.04 X10^3/uL; Basophil% 0.6 % (0-1); Eosinophil# 0.24 X10^3/uL; Eosinophils% 3.4 % (0-5); Hematocrit 40.7 % (40-54); Hemoglobin 12.3 g/dL (13.0-16.5); Lymphocyte % 29.8 % (19-41); Mean Corp Hgb Conc 30.2 g/dL (32-36); Mean Corpuscular Hgb 29.8 pg (27.0-32.0); Mean Corpuscular Volume 98.5 fL (80-94); Monocyte# 0.66 X10^3/uL; Monocyte% 9.4 % (0-10); NRBC Flagged by Analyzer 0 % (0-5); Neutrophil # 3.98 X10^3/uL (2.7-7.7); Neutrophil % 56.5 % (47-70); Platelet Count 168 K/mm3 (150-450); RBC Distribution Width CV 15.4 % (11.6-14.6); RBC Distribution Width SD 55.4 fl (35.1-43.9); Red Blood Count 4.13 M/mm3 (4.6-6.2)
[2021-02-12 17:57] LABS: ALB/GLOB Ratio 1.1 RATIO (0.9-2.4); AST(SGOT) 30 U/L (15-37); Alanine Aminotransfer ALT/SGPT 21 U/L (16-61); Albumin, Serum 3.6 g/dL (3.2-5.0); Alkaline Phosphatase 71 U/L (45-117); Anion Gap 6 (5-15); BUN 29 mg/dL (7-18); Calcium,Total 8.8 mg/dL (8.5-10.1); Chloride 105 mmol/L (98-107); Creatinine, Serum 1.21 mg/dL (0.70-1.30); EST Glomerular Filtration Rate 60 mL/min (>60); Est Glom Filt Rate - Afr Amer 73 mL/min (>60); Globulin 3.4 g/dL (2.2-4.2); Glucose 200 mg/dL (74-106); Potassium 4.2 mmol/L (3.5-5.1); Sodium Level 138 mmol/L (136-145)
== END ==
PROVIDERS: PCP Family Medicine; Visit Provider Family Medicine
DX: E11.65 Type 2 diabetes mellitus with hyperglycemia (principal)
CPT/HCPCS: 36415; 80053; 85025

== ENCOUNTER → 2021-05-08 15:24 | Outpatient (CLI) | payer MEDICARE, SELFPAY ==
[2020-11-13 09:26] VITALS: BMI 34.4
--- NOTE | 2021-05-08 15:40 | RAD_ITS ---
STUDY: X-RAY - ABDOMEN/PELVIS REASON FOR EXAM: Male, 86 years old. ABDOMINAL PAIN TECHNIQUE: 6 AP supine and upright views of the abdomen and pelvis. COMPARISON: CT of abdomen and pelvis dated December 23, 2019 FINDINGS: Normal visualized lung bases. There is no demonstrated free abdominal air. Mild gaseous distention multiple air-fluid levels throughout the small bowel of the abdomen is consistent with small bowel obstruction. Normal soft tissue structures. There are diffuse degenerative changes of the visualized lumbar spine. RAD/Abd Inc Decub and/or Erect IMPRESSION: 1. Mild gaseous distention multiple air-fluid levels throughout the small bowel of the abdomen is consistent with small bowel obstruction. Electronically Signed: Stephen Zimmerman MD at 16:42 EDT , Service support ,
[2021-05-08 17:44] LABS: Absolute Lymphocyte Count 1.14 X10^3/uL (0.83-4.51); Absolute Neutrophil Count 6.3 X10^3/uL (2.0-7.7); Basophil# 0.02 X10^3/uL; Basophil% 0.2 % (0-1); Eosinophil# 0.01 X10^3/uL; Eosinophils% 0.1 % (0-5); Hematocrit 40.8 % (40-54); Hemoglobin 13.3 g/dL (13.0-16.5); Lymphocyte # 1.14 X10^3/ul (0.83-4.51); Lymphocyte % 13.7 % (19-41); Mean Corp Hgb Conc 32.6 g/dL (32-36); Mean Corpuscular Hgb 30.5 pg (27.0-32.0); Mean Corpuscular Volume 93.6 fL (80-94); Mean Platelet Vol. 10.9 fl (6.2-12.0); Monocyte# 0.84 X10^3/uL; Monocyte% 10.1 % (0-10); NRBC Flagged by Analyzer 0 % (0-5); Neutrophil % 75.7 % (47-70); Platelet Count 203 K/mm3 (150-450); RBC Distribution Width CV 14.4 % (11.6-14.6); RBC Distribution Width SD 50.4 fl (35.1-43.9); Red Blood Count 4.36 M/mm3 (4.6-6.2); White Blood Count 8.3 K/mm3 (4.4-11.0)
[2021-05-08 18:13] LABS: AST(SGOT) 14 U/L (15-37); Alanine Aminotransfer ALT/SGPT 14 U/L (16-61); Albumin, Serum 3.5 g/dL (3.2-5.0); Alkaline Phosphatase 75 U/L (45-117); Anion Gap 9 (5-15); BUN 32 mg/dL (7-18); BUN/Creat Ratio 24.6 RATIO (10-20); Calcium,Total 8.9 mg/dL (8.5-10.1); Chloride 101 mmol/L (98-107); EST Glomerular Filtration Rate 56 mL/min (>60); Est Glom Filt Rate - Afr Amer 67 mL/min (>60); Globulin 3.6 g/dL (2.2-4.2); Glucose 225 mg/dL (74-106); Lipase 72 U/L (73-393); Potassium 3.9 mmol/L (3.5-5.1); Protein, Total 7.1 g/dL (6.4-8.2); Sodium Level 136 mmol/L (136-145)
[2021-05-08 18:15] LABS: AST(SGOT) 15 U/L (15-37); Alanine Aminotransfer ALT/SGPT 14 U/L (16-61); Albumin, Serum 3.4 g/dL (3.2-5.0); Alkaline Phosphatase 73 U/L (45-117); Bilirubin, Direct 0.27 mg/dL (0.00-0.30); Cholesterol 126 mg/dL (200); Globulin 3.8 g/dL (2.2-4.2); High Density Lipoprotein 57 mg/dL; Protein, Total 7.2 g/dL (6.4-8.2); Triglycerides 125 mg/dL; Very Low Density Lipoprotein 25 mg/dL (5-40)
== END ==
PROVIDERS: Physician Assistant Medical; PCP Family Medicine; Referring Provider Family Medicine; Visit Provider Family Medicine
DX: R10.9 Unspecified abdominal pain (principal)
CPT/HCPCS: 36415; 74019; 80053; 80061; 80076; 83690; 85025

== ENCOUNTER 2021-05-08 17:27 | Observation (INO) | payer MEDICARE, SELFPAY ==
[2020-11-13 09:26] VITALS: BMI 34.4
[2021-05-08 17:28] VITALS: BP 134/84; PULSE 83; RESP 16; TEMP 36.9; O2SAT 95; BMI 34.7
--- NOTE | 2021-05-08 18:17 | EDS_ITS ---
HPI History of Present Illness Chief Complaint: Abd Pain Informant: patient Narrative Narrative: 86-year-old male presents out of concern for small bowel obstruction. Patient states he has had 9 hernia repairs, hemicolectomy for colon cancer, colostomy with reversal and has had adhesional lysis by Dr. Osuna approximately 3 years ago. He notes that 3 days ago he began to have some discomfort in the lower left side of his abdomen which is where he has had the obstruction before. He notes that his pants are tight fitting. He notes that last night he vomited but has not had any vomiting today stating that he also has not had anything to eat or drink today. He went to primary care who obtained plain film radiographs which shows mild gaseous distention with multiple air-fluid levels throughout the small bowel of the abdomen consistent with an SBO. He notes that he has been passing gas today but also notes that he has doubled up on his MiraLAX because he was feeling constipated. His last bowel movement was 3 days ago and was very small. [facility] Medical History (Updated 05/08/21 @ 21:[address] Jossue Corrales, ) Atherosclerosis of coronary artery of [place] heart without angina pectoris Basal cell carcinoma BPH (benign prostatic hyperplasia) Colon cancer History of left heart catheterization (05/20/18) Hyperlipidemia Hypertension Old myocardial infarction Paroxysmal atrial fibrillation Small bowel obstruction Type 2 diabetes mellitus without complications Home Medications aspirin 81 mg PO DAILY@0800 11/29/14 [History Last Taken 12/23/19] clopidogrel 75 mg tablet 75 mg PO DAILY #90 tab 05/17/20 [Rx Last Taken Unknown] amlodipine 2.5 mg tablet 2.5 mg PO DAILY #90 tab 05/18/20 [Rx Last Taken Unknown] hydrochlorothiazide 25 mg tablet 25 mg PO DAILY #90 tab 05/18/20 [Rx Last Taken Unknown] metoprolol tartrate 50 mg tablet 50 mg PO BID #180 tab 05/18/20 [Rx Last Taken Unknown] nitroglycerin 0.4 mg sublingual tablet 0.4 mg SUBLINGUAL Q5M PRN #25 tab 05/18/20 [Rx Last Taken Unknown] ramipril 10 mg capsule 10 mg PO BID #180 cap 05/18/20 [Rx Last Taken Unknown] rosuvastatin 20 mg tablet 20 mg PO QHS #90 tab 05/18/20 [Rx Last Taken Unknown] pantoprazole 20 mg tablet,delayed release See Rx Instructions .ROUTE .COMPLEX #90 tab 04/02/21 [Rx Last Taken Unknown] Allergy/AdvReac Type Severity Reaction Status Date / Time Sulfa (Sulfonamide Allergy itching, Verified 05/08/21 17:30 Antibiotics) headache cyclobenzaprine AdvReac severe Verified 05/08/21 17:30 headache Family History Mother CVA (cerebral vascular accident) Surgical History H/O coronary artery bypass surgery (10/17/04) History of herniorrhaphy History of partial colectomy Social History Smoking Status: Former smoker alcohol intake: never substance use type: does not use what type of physical activity do you participate in: bicycling frequency: 3-4 times per week ROS ROS ED Constitutional Constitutional ED: Denies chills or weight loss Eyes Eyes: Denies change in vision or diplopia ENT ENT ED: Denies ear pain, rhinorrhea or sore throat Cardiovascular Cardiovascular: Denies chest pain, orthopnea, palpitations or racing heartbeat Respiratory/Chest Respiratory/Chest: Denies cough, dyspnea or orthopnea Gastrointestinal Gastrointestinal: Reports abdominal pain, nausea and vomiting; Denies diarrhea Genitourinary Genitourinary ED: Denies dysuria, hematuria or urinary frequency Musculoskeletal Musculoskeletal: Denies arthralgias or myalgias Integumentary Denies abscess or rash Neurologic Neurologic: Denies headache(s) or weakness Psychiatric Psychiatric: Denies anxiety, depression, suicidal ideation or suicidal thoughts Endocrine Endocrinology: Denies polydipsia, polyphagia or polyuria Allergic/Immunologic Allergic/Immunologic ED: Denies mouth swelling, tongue swelling or urticaria EXAM Physical Exam Const Vital Signs: 05/08/21 17:28 05/08/21 20:38 Temperature 98.5 F 98.6 F Temperature Source Temporal Oral Pulse Rate 83 78 Respiratory Rate 16 16 Blood Pressure 134/84 H 147/66 H Blood Pressure Mean 100 93 Pulse Ox 95 93 Oxygen Delivery Method Room Air Room Air Positive well nourished and well developed General Appearance ED: well developed HEENT Reports normocephalic, head/scalp atraumatic and moist mucous membranes Eyes PERRL and EOMs intact bilaterally Neck no lymphadenopathy, supple and no JVD Resp normal respiratory effort and clear to auscultation bilaterally Cardio regular rate, regular rhythm and no murmurs GI Inspection: abdominal distention Auscultation: hypoactive bowel sounds Palpation: tender LLQ Back/Spine no CVA tenderness and normal ROM Extremity normal to inspection General Extremety ED: Negative for edema General Extremity: Negative for edema Neuro oriented x3 and CN's II-XII intact bilaterally Sensorium / Orientation: alert Motor Exam: strength 5/5 throughout Psych mental status grossly normal Mood & Affect: Negative for depressed or tearful Skin no rashes or lesions noted and no wounds MDM MDM MDM Narrative Medical decision making narrative: After reviewing the plain films I spoke with our on-call surgeon Dr. Rodriguez who would like to obtain a formal CT with IV and oral contrast. This was read by radiology reviewed by myself and Dr. Hendricks brought up. Mild fluid and gaseous distention of the small bowel starting at the origin of the jejunum and continuing into the distal jejunum into the right mid abdomen where there is a transition from dilated bowel to collapsed bowel. Patient stomach is not distended. He is not vomiting and is not requiring any pain medication. Plan will be to keep him n.p.o. and repeat KUB in the morning to see if contrast has passed the transition point. Hospitalist will be contacted for admission Lab Data Attestation: I reviewed the patient's lab results. Labs: Laboratory Results - last 24 hr 05/08/21 05/08/21 18:14 18:14 WBC 9.2 RBC 4.42 L Hgb 13.5 Hct 41.4 MCV 93.7 MCH 30.5 MCHC 32.6 RDW Std Deviation 49.6 H RDW Coeff of Helder 14.4 Plt Count 176 MPV 10.3 Immature Gran % (Auto) 0.200 Neut % (Auto) 72.0 H Lymph % (Auto) 14.3 L [place] % (Auto) 13.1 H Eos % (Auto) 0.2 Baso % (Auto) 0.2 Absolute Neuts (auto) 6.6 Absolute Lymphs (auto) 1.31 Nucleated RBC % 0 Sodium 136 Potassium 3.9 Chloride 102 Carbon Dioxide 26.0 Anion Gap 8 BUN 37 H Creatinine 1.44 H Estim Creat Clear Calc 38.02 Est GFR (MDRD) Af Amer 60 Est GFR (MDRD) Non-Af 49 L BUN/Creatinine Ratio 25.7 H Glucose 192 H Calcium 9.1 Total Bilirubin 1.00 AST 10 L ALT 14 L Alkaline Phosphatase 67 Total Protein 7.0 Albumin 3.3 Globulin 3.7 Albumin/Globulin Ratio 0.9 Lipase 78 Radiography Diagnostic Testing: Radiology Impression Abdomen/Pelvis CT 05/08/21 20:05 IMPRESSION: Small bowel obstruction 1. Mild fluid and gaseous distention of the small bowel starting at the origin of the jejunum and continuing into the distal jejunum in the right mid abdomen where there is transition from dilated bowel to collapsed bowel likely due to an extrinsic adhesion, see image 101/152 series 2. The remaining small bowel loops are unremarkable. 2. The colon is stool-filled. The appendix is not seen. Normal stomach. 3. No free air or free fluid. Electronically Signed: Stephen Zimmerman MD at 21:10 EDT , Service support , Discharge Plan Dx/Rx/DC Orders Clinical Impression: SBO (small bowel obstruction) Disposition Disposition: Acute Care Hospital [facility]
[2021-05-08 18:21] LABS: Absolute Lymphocyte Count 1.31 X10^3/uL (0.83-4.51); Absolute Neutrophil Count 6.6 X10^3/uL (2.0-7.7); Basophil# 0.02 X10^3/uL; Basophil% 0.2 % (0-1); Eosinophil# 0.02 X10^3/uL; Eosinophils% 0.2 % (0-5); Hematocrit 41.4 % (40-54); Hemoglobin 13.5 g/dL (13.0-16.5); Lymphocyte # 1.31 X10^3/ul (0.83-4.51); Lymphocyte % 14.3 % (19-41); Mean Corp Hgb Conc 32.6 g/dL (32-36); Mean Corpuscular Hgb 30.5 pg (27.0-32.0); Mean Corpuscular Volume 93.7 fL (80-94); Mean Platelet Vol. 10.3 fl (6.2-12.0); Monocyte% 13.1 % (0-10); NRBC Flagged by Analyzer 0 % (0-5); Neutrophil # 6.62 X10^3/uL (2.7-7.7); Platelet Count 176 K/mm3 (150-450); RBC Distribution Width CV 14.4 % (11.6-14.6); RBC Distribution Width SD 49.6 fl (35.1-43.9); Red Blood Count 4.42 M/mm3 (4.6-6.2)
[2021-05-08] MEDS: Ondansetron 4 MG/2 ML Vial IV (18:21)
[2021-05-08] MEDS: 0.9% Normal Saline 1,000 ML 125 ML IV (18:21)
[2021-05-08 18:23] LABS: White Blood Count 9.2 K/mm3 (4.4-11.0)
[2021-05-08 18:39] LABS: ALB/GLOB Ratio 0.9 RATIO (0.9-2.4); AST(SGOT) 10 U/L (15-37); Alanine Aminotransfer ALT/SGPT 14 U/L (16-61); Albumin, Serum 3.3 g/dL (3.2-5.0); Alkaline Phosphatase 67 U/L (45-117); Anion Gap 8 (5-15); BUN 37 mg/dL (7-18); BUN/Creat Ratio 25.7 RATIO (10-20); Calcium,Total 9.1 mg/dL (8.5-10.1); Chloride 102 mmol/L (98-107); Creatinine, Serum 1.44 mg/dL (0.70-1.30); EST Glomerular Filtration Rate 49 mL/min (>60); Est Glom Filt Rate - Afr Amer 60 mL/min (>60); Estimated Creatinine Clearance 38.02 ml/min; Globulin 3.7 g/dL (2.2-4.2); Glucose 192 mg/dL (74-106); Lipase 78 U/L (73-393); Potassium 3.9 mmol/L (3.5-5.1); Sodium Level 136 mmol/L (136-145)
--- NOTE | 2021-05-08 20:05 | CT_ITS ---
STUDY: CT ABDOMEN AND PELVIS WITH CONTRAST REASON FOR EXAM: Male, 86 years old. small bowel obstruction Prior medical history: HERNIA X 9. COLON CA RADIATION DOSAGE (If Supplied By Facility): CTDIvol = ( 23.90 ) mGy, DLP = ( 1481.41 ) mGycm TECHNIQUE: Transaxial images were obtained from the dome of the diaphragm to the symphysis pubis with oral contrast. Oral and amp; IV Gastrografin and amp; 100mL Isovue-300 was administered. Sagittal and coronal images were reconstructed. Individualized dose optimization techniques were used for this CT. COMPARISON: Abdominal x-ray dated MAY 08, 2021. CT of abdomen and pelvis dated December 23, 2019 FINDINGS: Mild fluid and gaseous distention of the small bowel starting at the origin of the jejunum and continuing into the distal jejunum in the right mid abdomen where there is transition from dilated bowel to collapsed bowel likely due to an extrinsic adhesion, see image 101/152 series 2. The remaining small bowel loops are unremarkable. The colon is stool-filled. The appendix is not seen. Normal stomach. No free air or free fluid. There are chronic interstitial fibrotic changes of the lung bases. Median sternotomy wires are present. Normal liver. There are multiple gallstones. Reidentification of a tubular radiopaque density in the mid aspect of the spleen which could be postsurgical or related to prior trauma. Small splenules and capsular irregularity is seen near this defect. Normal pancreas Normal bilateral adrenal glands. Reidentification of small parapelvic and parenchymal cysts scattered throughout both kidneys which does not require any additional imaging. Normal visualized stomach. Normal small intestine. Normal colon. The appendix is visualized and appears normal. There is diffuse atherosclerotic calcification of the abdominal aorta, without a demonstrated aneurysm. Normal inferior vena cava. Normal retroperitoneum. Normal urinary bladder. Healed anterior abdominal wall incision tract and chronic scarring in the subcutaneous fat. A small left inguinal hernia is present containing a portion of the distal ileum but without incarceration. There are diffuse degenerative changes of the visualized lumbar spine. CT/Abdomen/Pelvis WITH Contrast IMPRESSION: Small bowel obstruction 1. Mild fluid and gaseous distention of the small bowel starting at the origin of the jejunum and continuing into the distal jejunum in the right mid abdomen where there is transition from dilated bowel to collapsed bowel likely due to an extrinsic adhesion, see image 101/152 series 2. The remaining small bowel loops are unremarkable. 2. The colon is stool-filled. The appendix is not seen. Normal stomach. 3. No free air or free fluid. Electronically Signed: Stephen Zimmerman MD at 21:10 EDT , Service support ,
[2021-05-08 20:38] VITALS: BP 147/66; PULSE 78; RESP 16; TEMP 37; O2SAT 93
--- NOTE | 2021-05-08 21:44 | PCM.HP.STD ---
HPI - General General Date of Admission: 05/08/21 Date of Service: 05/08/21 Chief Complaint: Abdominal pain HPI Narrative SILVINO FERRERA, is a 86 M with a significant history of CAD status post CABG; prostate cancer status post radiation; colon cancer status post colectomy; and multiple abdominal surgeries who presents to the ED with 2 to 3 days history of intermittent lower abdominal pain. He describes the pain as aching and intermittent. His highest pain level is 8 out of 10. At the time of evaluation his pain was a 2 even though he had not received any pain medication. He had nausea and vomiting the day before presentation. Last time his bowels moved was about 2 days ago. His stool was hard at that time. He has been taking MiraLAX. Patient is still passing gas. His pain is nonradiating. His pain worsens with sitting down secondary to pressure on his lower abdomen. His pain improves with lying down. Patient had a KUB outpatient on the same day before coming to the emergency department. [facility] Medical History Atherosclerosis of coronary artery of [place] heart without angina pectoris Basal cell carcinoma BPH (benign prostatic hyperplasia) Colon cancer History of left heart catheterization (05/20/18) Hyperlipidemia Hypertension Old myocardial infarction Paroxysmal atrial fibrillation Small bowel obstruction Type 2 diabetes mellitus without complications Home Medications aspirin 81 mg PO DAILY@0800 11/29/14 [History Last Taken 12/23/19] clopidogrel 75 mg tablet 75 mg PO DAILY #90 tab 05/17/20 [Rx Last Taken Unknown] amlodipine 2.5 mg tablet 2.5 mg PO DAILY #90 tab 05/18/20 [Rx Last Taken Unknown] hydrochlorothiazide 25 mg tablet 25 mg PO DAILY #90 tab 05/18/20 [Rx Last Taken Unknown] metoprolol tartrate 50 mg tablet 50 mg PO BID #180 tab 05/18/20 [Rx Last Taken Unknown] nitroglycerin 0.4 mg sublingual tablet 0.4 mg SUBLINGUAL Q5M PRN #25 tab 05/18/20 [Rx Last Taken Unknown] ramipril 10 mg capsule 10 mg PO BID #180 cap 05/18/20 [Rx Last Taken Unknown] rosuvastatin 20 mg tablet 20 mg PO QHS #90 tab 05/18/20 [Rx Last Taken Unknown] pantoprazole 20 mg tablet,delayed release See Rx Instructions .ROUTE .COMPLEX #90 tab 04/02/21 [Rx Last Taken Unknown] Allergy/AdvReac Type Severity Reaction Status Date / Time Sulfa (Sulfonamide Allergy itching, Verified 05/08/21 17:30 Antibiotics) headache cyclobenzaprine AdvReac severe Verified 05/08/21 17:30 headache Family History Mother CVA (cerebral vascular accident) Surgical History H/O coronary artery bypass surgery (10/17/04) History of herniorrhaphy History of partial colectomy Social History Smoking Status: Former smoker alcohol intake: never substance use type: does not use what type of physical activity do you participate in: bicycling frequency: 3-4 times per week ROS ROS Narrative 12 point review of system is negative except as stated in HPI. Vital Signs Vital Signs Vital Signs: 05/08/21 17:28 05/08/21 20:38 Temperature 98.5 F 98.6 F Temperature Source Temporal Oral Pulse Rate 83 78 Respiratory Rate 16 16 Blood Pressure 134/84 H 147/66 H Blood Pressure Mean 100 93 Pulse Ox 95 93 Oxygen Delivery Method Room Air Room Air Weight Weight: 109.769 kg Body Mass Index (BMI) 34.7 Physical Exam Narrative Alert and oriented x3 Nontraumatic; normocephalic Lung clear to auscultate Heart sounds S1-S2. No murmur, gallop or rubs. Abdomen bowel sounds present soft. Lower abdomen mildly tender. Nondistended Extremity without edema cyanosis or clubbing. Results Lab / Micro Data Result Diagrams: 05/08/21 18:14 05/08/21 18:14 Labs: Laboratory Results - last 24 hr 05/08/21 05/08/21 18:14 18:14 WBC 9.2 RBC 4.42 L Hgb 13.5 Hct 41.4 MCV 93.7 MCH 30.5 MCHC 32.6 RDW Std Deviation 49.6 H RDW Coeff of Helder 14.4 Plt Count 176 MPV 10.3 Immature Gran % (Auto) 0.200 Neut % (Auto) 72.0 H Lymph % (Auto) 14.3 L [place] % (Auto) 13.1 H Eos % (Auto) 0.2 Baso % (Auto) 0.2 Absolute Neuts (auto) 6.6 Absolute Lymphs (auto) 1.31 Nucleated RBC % 0 Sodium 136 Potassium 3.9 Chloride 102 Carbon Dioxide 26.0 Anion Gap 8 BUN 37 H Creatinine 1.44 H Estim Creat Clear Calc 38.02 Est GFR (MDRD) Af Amer 60 Est GFR (MDRD) Non-Af 49 L BUN/Creatinine Ratio 25.7 H Glucose 192 H Calcium 9.1 Total Bilirubin 1.00 AST 10 L ALT 14 L Alkaline Phosphatase 67 Total Protein 7.0 Albumin 3.3 Globulin 3.7 Albumin/Globulin Ratio 0.9 Lipase 78 Radiology Impression Abdomen/Pelvis CT 05/08/21 20:05 IMPRESSION: Small bowel obstruction 1. Mild fluid and gaseous distention of the small bowel starting at the origin of the jejunum and continuing into the distal jejunum in the right mid abdomen where there is transition from dilated bowel to collapsed bowel likely due to an extrinsic adhesion, see image 101/152 series 2. The remaining small bowel loops are unremarkable. 2. The colon is stool-filled. The appendix is not seen. Normal stomach. 3. No free air or free fluid. Electronically Signed: Stephen Zimmerman MD at 21:10 EDT , Service support , Assessment & Plan Assessment/Plan (1) SBO (small bowel obstruction): (2) Hypertension: QUALIFIERS: Hypertension type: essential hypertension Qualified Code(s): I10 - Essential (primary) hypertension PLAN: Small bowel obstruction Radiologist impression of KUB taken on same day: Mild gaseous distention multiple air-fluid levels to the small bowel of the abdomen is consistent with small bowel obstruction. Actual KUB image was independently reviewed. I agree with the latest interpretation. Emergency department doctor discussed the case with general surgeon on-call who recommended abdomen and pelvis CT. Abdomen and pelvis CT with some transition point likely due to extrinsic adhesion but with stool-filled colon. And with no free air or free fluid. Emergency department labs were reviewed. BMP with mildly bump in creatinine but not to the level of FIDELINA. CBC is not remarkable. Discussed the case with general surgery who recommended KUB in a.m. KUB ordered. Patient will be kept n.p.o. Gentle IV hydration. As needed Zofran ordered. General surgery consult. Hypertension Blood pressure is stable in regard to his age. Hold home po blood pressure medications secondary to n.p.o. status.. Vasotec IV [id number] ordered. CAD status post CABG Reported CABG was in 2001. Hold home aspirin and Plavix secondary to n.p.o. status and patient being candidate of surgery although surgery is unlikely since patient's abdominal pain has improved. Stable with no chest pain at this time. GERD Hold home p.o. Protonix. IV Protonix ordered. DVT prophylaxis Moderate risk. Because patient surgical candidate will avoid chemical chemoprophylaxis at this time. SCD ordered. Charges/Coding Visit Charges OBSV E&M: 83879 Initial observation care L3
[2021-05-08 22:19] VITALS: BP 148/60; PULSE 82; RESP 18; TEMP 36.9; O2SAT 96
[2021-05-08 22:20] VITALS: BMI 33.8
[2021-05-08 22:44] VITALS: BP 176/67; PULSE 82; RESP 18; TEMP 36.2; O2SAT 98
[2021-05-08] MEDS: 0.9% Normal Saline 1,000 ML 75 ML IV (22:45)
[2021-05-08] MEDS: 0.9% Saline Lock 10 ML Syringe IV (22:45)
[2021-05-08] MEDS: Enalaprilat 1.25 MG/ML Vial IV (23:35)
[2021-05-09 03:17] VITALS: BP 99/43; PULSE 78; RESP 18; TEMP 36.5; O2SAT 92
--- NOTE | 2021-05-09 05:55 | RAD_ITS ---
STUDY: X-RAY - ABDOMEN/PELVIS REASON FOR EXAM: Male, 86 years old. Small bowel obstruction. Follow-up. TECHNIQUE: Single AP view of the abdomen / pelvis. COMPARISON: 05/08/2021. FINDINGS: Normal visualized lung bases. Decompression of small bowel since the prior study with gas seen to the distal descending colon. There is no demonstrated free abdominal air. Contrast in bladder. Normal soft tissue structures. Normal visualized osseous structures. RAD/Abdomen Single View (Portable) IMPRESSION: Decompression of small bowel since the comparison study yesterday. No evidence of small bowel obstruction at this time. Electronically Signed: Ian Pepper MD at 11:28 EDT , Service support ,
[2021-05-09 06:18] LABS: Absolute Lymphocyte Count 2.15 X10^3/uL (0.83-4.51); Absolute Neutrophil Count 3.9 X10^3/uL (2.0-7.7); Basophil# 0.02 X10^3/uL; Basophil% 0.3 % (0-1); Eosinophil# 0.19 X10^3/uL; Eosinophils% 2.7 % (0-5); Hematocrit 37.5 % (40-54); Hemoglobin 11.5 g/dL (13.0-16.5); Lymphocyte # 2.15 X10^3/ul (0.83-4.51); Lymphocyte % 30.2 % (19-41); Mean Corp Hgb Conc 30.7 g/dL (32-36); Mean Corpuscular Hgb 30.7 pg (27.0-32.0); Mean Corpuscular Volume 100.3 fL (80-94); Mean Platelet Vol. 10.5 fl (6.2-12.0); Monocyte% 11.3 % (0-10); NRBC Flagged by Analyzer 0 % (0-5); Neutrophil # 3.93 X10^3/uL (2.7-7.7); Neutrophil % 55.2 % (47-70); Platelet Count 142 K/mm3 (150-450); RBC Distribution Width CV 14.7 % (11.6-14.6); RBC Distribution Width SD 53.8 fl (35.1-43.9); Red Blood Count 3.74 M/mm3 (4.6-6.2); White Blood Count 7.1 K/mm3 (4.4-11.0)
[2021-05-09 06:40] VITALS: BP 97/38; PULSE 69; RESP 18; TEMP 36.8; O2SAT 91
[2021-05-09 06:51] LABS: Anion Gap 7 (5-15); BUN 30 mg/dL (7-18); BUN/Creat Ratio 25.4 RATIO (10-20); Calcium,Total 8.4 mg/dL (8.5-10.1); Chloride 107 mmol/L (98-107); Creatinine, Serum 1.18 mg/dL (0.70-1.30); EST Glomerular Filtration Rate 62 mL/min (>60); Est Glom Filt Rate - Afr Amer 75 mL/min (>60); Estimated Creatinine Clearance 47.86 ml/min; Glucose 136 mg/dL (74-106); Potassium 3.9 mmol/L (3.5-5.1); Sodium Level 138 mmol/L (136-145)
--- NOTE | 2021-05-09 07:33 | EX.PCM.CON.S ---
Assessment & Plan Assessment/Plan (1) SBO (small bowel obstruction): PLAN: The patient had a small bowel stricture which was resolving on CT that was done yesterday with a CT that showed copious stool and gas throughout the colon and minimally dilated small bowel loops. Overnight the patient had 2 large bowel movements and he is passing copious flatus. I will advance him to a regular diet if he tolerates this he may be discharged home. Follow-up as needed. Mike Rodriguez MD Pager: [facility] [address] [place] [address], [address] [place] [address] Office: HPI Consult Data Date of Consult: 05/09/21 HPI Narrative HPI Narrative: SILVINO FERRERA, is a 86 M who presents with a small bowel obstruction. The patient had a few days of abdominal discomfort and x-ray showed air-fluid levels. The patient presented to the emergency room saying that he was passing flatus. He says he has had several bowel obstructions in the past and has had several surgeries. His last bowel obstruction resolved spontaneously. COUNTS INCLUDE 234 BEDS AT THE [facility] Medical History Atherosclerosis of coronary artery of [place] heart without angina pectoris Basal cell carcinoma BPH (benign prostatic hyperplasia) Colon cancer Former smoker GERD (gastroesophageal reflux disease) History of left heart catheterization (05/20/18) Hyperlipidemia Hypertension Old myocardial infarction Paroxysmal atrial fibrillation Small bowel obstruction Type 2 diabetes mellitus without complications Wears hearing aid in both ears Home Medications aspirin 81 mg PO DAILY@0800 11/29/14 [History Last Taken 05/08/21] clopidogrel 75 mg tablet 75 mg PO DAILY #90 tab 05/17/20 [Rx Last Taken 05/08/21] amlodipine 2.5 mg tablet 2.5 mg PO DAILY #90 tab 05/18/20 [Rx Last Taken 05/08/21] hydrochlorothiazide 25 mg tablet 25 mg PO DAILY #90 tab 05/18/20 [Rx Last Taken 05/08/21] metoprolol tartrate 50 mg tablet 50 mg PO BID #180 tab 05/18/20 [Rx Last Taken 05/08/21 10:00] nitroglycerin 0.4 mg sublingual tablet 0.4 mg SUBLINGUAL Q5M PRN #25 tab 05/18/20 [Rx Last Taken Unknown] ramipril 10 mg capsule 10 mg PO BID #180 cap 05/18/20 [Rx Last Taken 05/08/21 10:00] rosuvastatin 20 mg tablet 20 mg PO QHS #90 tab 05/18/20 [Rx Last Taken 05/07/21] pantoprazole 20 mg tablet,delayed release See Rx Instructions .ROUTE .COMPLEX #90 tab 04/02/21 [Rx Last Taken 05/07/21] Allergy/AdvReac Type Severity Reaction Status Date / Time Sulfa (Sulfonamide Allergy itching, Verified 05/08/21 17:30 Antibiotics) headache cyclobenzaprine AdvReac severe Verified 05/08/21 17:30 headache Family History Mother CVA (cerebral vascular accident) Surgical History H/O coronary artery bypass surgery (10/17/04) History of herniorrhaphy History of partial colectomy Social History Smoking Status: Former smoker alcohol intake: never substance use type: does not use what type of physical activity do you participate in: bicycling frequency: 3-4 times per week ROS Constitutional Constitutional: Denies anorexia or fatigue Eyes Eyes: Denies blurry vision ENT HEENT: Denies abnormal hearing Cardiovascular Cardiovascular: Denies chest pain Respiratory/Chest Respiratory/Chest: Denies cough Gastrointestinal Gastrointestinal: Reports abdominal pain, bloating and nausea; Denies diarrhea, dysphagia or hematemesis Genitourinary Genitourinary: Denies change in urinary stream Musculoskeletal Musculoskeletal: Denies abnormal gait Integumentary Integumentary: Denies jaundice Neurologic Neurologic: Denies abnormal gait Psychiatric Psychiatric: Denies anxiety Physical Exam Const alert and oriented x3 HEENT normocephalic Eyes PERRL Neck full ROM Resp normal respiratory effort Cardio Rate: regular rate Rhythm: regular rhythm GI normal to inspection, nondistended, normoactive bowel sounds Extremity normal to inspection Skin no rashes or lesions noted Neuro CN's II-XII intact bilaterally Lab / Micro Data Result Diagrams: 05/09/21 05:58 05/09/21 05:58 Labs: Laboratory Results - last 24 hr 05/08/21 05/08/21 05/09/21 18:14 18:14 05:58 WBC 9.2 7.1 RBC 4.42 L 3.74 L Hgb 13.5 11.5 L Hct 41.4 37.5 L MCV 93.7 100.3 H D MCH 30.5 30.7 MCHC 32.6 30.7 L D RDW Std Deviation 49.6 H 53.8 H RDW Coeff of Helder 14.4 14.7 H Plt Count 176 142 L MPV 10.3 10.5 Immature Gran % (Auto) 0.200 0.300 Neut % (Auto) 72.0 H 55.2 Lymph % (Auto) 14.3 L 30.2 [place] % (Auto) 13.1 H 11.3 H Eos % (Auto) 0.2 2.7 Baso % (Auto) 0.2 0.3 Absolute Neuts (auto) 6.6 3.9 Absolute Lymphs (auto) 1.31 2.15 Nucleated RBC % 0 0 Sodium 136 Potassium 3.9 Chloride 102 Carbon Dioxide 26.0 Anion Gap 8 BUN 37 H Creatinine 1.44 H Estim Creat Clear Calc 38.02 Est GFR (MDRD) Af Amer 60 Est GFR (MDRD) Non-Af 49 L BUN/Creatinine Ratio 25.7 H Glucose 192 H Calcium 9.1 Total Bilirubin 1.00 AST 10 L ALT 14 L Alkaline Phosphatase 67 Total Protein 7.0 Albumin 3.3 Globulin 3.7 Albumin/Globulin Ratio 0.9 Lipase 78 05/09/21 05:58 WBC RBC Hgb Hct MCV MCH MCHC RDW Std Deviation RDW Coeff of Helder Plt Count MPV Immature Gran % (Auto) Neut % (Auto) Lymph % (Auto) [place] % (Auto) Eos % (Auto) Baso % (Auto) Absolute Neuts (auto) Absolute Lymphs (auto) Nucleated RBC % Sodium 138 Potassium 3.9 Chloride 107 Carbon Dioxide 24.0 Anion Gap 7 BUN 30 H Creatinine 1.18 Estim Creat Clear Calc 47.86 Est GFR (MDRD) Af Amer 75 Est GFR (MDRD) Non-Af 62 BUN/Creatinine Ratio 25.4 H Glucose 136 H Calcium 8.4 L Total Bilirubin AST ALT Alkaline Phosphatase Total Protein Albumin Globulin Albumin/Globulin Ratio Lipase Radiology Impression Abdomen/Pelvis CT 05/08/21 20:05 IMPRESSION: Small bowel obstruction 1. Mild fluid and gaseous distention of the small bowel starting at the origin of the jejunum and continuing into the distal jejunum in the right mid abdomen where there is transition from dilated bowel to collapsed bowel likely due to an extrinsic adhesion, see image 101/152 series 2. The remaining small bowel loops are unremarkable. 2. The colon is stool-filled. The appendix is not seen. Normal stomach. 3. No free air or free fluid. Electronically Signed: Stephen Zimmerman MD at 21:10 EDT , Service support ,
[2021-05-09 09:19] VITALS: BP 133/63; PULSE 82; RESP 18; TEMP 36.5; O2SAT 93
[2021-05-09] MEDS: 0.9% Normal Saline 1,000 ML 75 ML IV (09:26)
--- NOTE | 2021-05-09 10:01 | CASEMGMT ---
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 FRANCISCO SHELTON introduced self and role at [facility]. Pt voices understanding and consents to assessment at this time. Pt resting in bed in no distress at this time. Pt is A/O at this time and answers all questions appropriately. Care providers, pharmacy, and demographics verified/updated at this time. PCP: Dr Saul Clark Specialists:Dr Garcia-STACY. Has appt 05/10/[address] Gupta. Has appt in 2 weeks--unsure of exact date. Preferred Pharmacy: [facility] Retail Insurance: [employer] Prescription Benefit: Yes Living Will/HPOA: Has both LW and Healthcare POA, who is his , Idalia. Pt states dtr, Maribel Yadav, is 1st alternate POA. Copies of AD are not on e-file @ [facility]. LNOK: , Idalia. Daughters: Maribel Yadav and Jeanette Peralta Living Arrangements: Lives w/ in one-story home w/2 steps to enter. Independent. Daughters are both EMT's and granddaughter is a nurse. Family very supportive. Transportation: Pt states drives self and states no transportation concerns at this time. also drives DME: States has the following DME: functioning glucometer w/supplies, BP machine. Uses no DME to ambulate. Pt states no need for further DME at this time. HHC/SNF: No hx SNF. Has had HHC in the past. Denies need for HHC and no needs identified. Pt wishes to return home and states has no concerns with going home at time of discharge. CM to follow for any discharge planning/needs. Pt voices no concerns/needs at this time. Advised pt to ask for CM if any questions/concerns/needs arise. Voices understanding. PLAN: Home w/ and family support. Benedicto FRENCH RN, CM
--- NOTE | 2021-05-09 10:39 | PCM.DC ---
Discharge Instructions Diet Discharge Diet: Light diet - advance as tolerated Activity Discharge Activity: Return to Normal Activity Dressing / Incision Call your doctor if you observe: Inability to have a bowel movement Follow Up Care Test Results: Test results from this visit will be discussed in further detail at your follow-up appointment, if applicable. Discharge Plan Admission Admit Date/Time: 05/08/21 21:43 Primary Reason for Your Visit: Small bowel obstruction Attending Provider: Geeta Healy Primary Care Provider: Saul Clark Consulting Providers: Mike Rodriguez Discharge Orders/Prescriptions Prescriptions: Continued amlodipine 2.5 mg tablet 2.5 mg PO DAILY Qty: 90 RF: 3 hydrochlorothiazide 25 mg tablet 25 mg PO DAILY Qty: 90 RF: 3 metoprolol tartrate 50 mg tablet 50 mg PO BID Qty: 180 RF: 3 ramipril 10 mg capsule 10 mg PO BID Qty: 180 RF: 3 rosuvastatin 20 mg tablet 20 mg PO QHS Qty: 90 RF: 3 nitroglycerin 0.4 mg tablet, sublingual 0.4 mg SUBLINGUAL Q5M PRN (Reason: Chest Pain) Qty: 25 RF: 3 aspirin 81 MG tablet,chewable 81 mg PO DAILY@0800 RF: 0 clopidogrel [Plavix] 75 mg tablet 75 mg PO DAILY Qty: 90 RF: 3 pantoprazole 20 mg tablet,delayed release (DR/EC) See Rx Instructions .ROUTE .COMPLEX Qty: 90 RF: 3 Referrals / Follow Up: Mike Rodriguez MD [STAFF PHYSICIAN] - See Referral Note (As needed) Dwight Garcia MD [STAFF PHYSICIAN] - See Referral Note (As scheduled 05/10/21) Saul Clark MD [Primary Care Provider] - In 1 Week Disposition Disposition (needs filled in before D/C Order can be placed): Home, self care
--- NOTE | 2021-05-09 10:43 | PCM.DC.SUM ---
Documented by User: Kinga Brandon NP, TOOL GRINDER-C 05/09/21 10:48 Providers Date of Admission: 05/08/21 Date of Discharge: 05/09/21 Primary Care Physician: Dr. Saul Clark MD Consultations 05/08/21 22:19 Consult: General Surgery Routine Consulting Provider: Mike Rodriguez Reason for Consult: sbo EMERGENT Consult: No MD Notified: Yes Date Notified:: 05/08/21 Time Notified: 21:42 Method of Notification: Verbal Reason For Visit: SBO Diagnosis Discharge Diagnosis (1) SBO (small bowel obstruction): Status: Acute Code(s): K56.609 - Unspecified intestinal obstruction, unspecified as to partial versus complete obstruction Medications at Discharge Home Medications aspirin 81 mg PO DAILY@0800 11/29/14 clopidogrel 75 mg tablet 75 mg PO DAILY #90 tab 05/17/20 amlodipine 2.5 mg tablet 2.5 mg PO DAILY #90 tab 05/18/20 hydrochlorothiazide 25 mg tablet 25 mg PO DAILY #90 tab 05/18/20 metoprolol tartrate 50 mg tablet 50 mg PO BID #180 tab 05/18/20 nitroglycerin 0.4 mg sublingual tablet 0.4 mg SUBLINGUAL Q5M PRN #25 tab 05/18/20 ramipril 10 mg capsule 10 mg PO BID #180 cap 05/18/20 rosuvastatin 20 mg tablet 20 mg PO QHS #90 tab 05/18/20 pantoprazole 20 mg tablet,delayed release See Rx Instructions .ROUTE .COMPLEX #90 tab 04/02/21 Hospital Course Operations None Procedures None Summary of Care Provided Minutes Spent on Discharge: 35 Hospital Course: Patient is a 86-year-old male admitted 05/08/2021 due to abdominal pain. 1. Small bowel obstruction-quickly resolved. CTA on admission showed resolving small bowel obstruction with copious stool and gas in the colon and minimally dilated small bowel loops. Patient had multiple bowel movements overnight. Tolerating diet. Patient has had several bowel obstructions in the past. Patient reports typically resolve spontaneously. Advance diet as tolerated. Follow-up with general surgery as needed. Follow-up with PCP in 1 week. 2. CAD with history of CABG-stable. Follows with Dr. Garcia as outpatient. Appt 05/10/21. Continue aspirin, Plavix, statin, beta-gabriella, DIANDRA inhibitor. 3. Hypertension- stable, continue amlodipine, HCTZ, metoprolol, ramipril. 4. Hyperlipidemia- continue statin. 5. History of paroxysmal atrial fibrillation status post Maze procedure 2003-no further known recurrence. 6. GERD- continue PPI. Patient seen and examined prior to discharge. Physical assessment as noted below. Patient is stable for discharge with follow up recommendations as noted above. This patient was seen by LIBRADO Marin under the supervision of Dr. Healy. Physical Exam Const alert, oriented x3 and no apparent distress Orientation / Consciousness: awake, oriented to person, oriented to place and oriented to time HEENT normocephalic and moist oral mucous membranes Eyes PERRL, EOMs intact bilaterally and conjunctivae normal Neck no lymphadenopathy Resp normal respiratory effort and clear to auscultation bilaterally Cardio regular rate, regular rhythm and no murmurs Peripheral Pulses: pulses 2+ throughout GI normal to inspection, nondistended, normoactive bowel sounds, non-tender and non-distended Extremity normal to inspection Skin no rashes or lesions noted Lesions: no lesions Rashes: no rashes Trauma: no lacerations or abrasions Neuro CN's II-XII intact bilaterally, no focal motor deficits, no sensory deficits noted and deep tendon reflexes 2+ bilaterally Psych mental status grossly normal and affect normal Weight / BMI Weight Weight: 242 lb 11.663 oz Body Mass Index (BMI) 33.8 ABG / Lab / Microbiology Data Result Diagrams: 05/09/21 05:58 05/09/21 05:58 Laboratory: Laboratory Results - last 24 hr 05/08/21 05/08/21 05/09/21 18:14 18:14 05:58 WBC 9.2 7.1 RBC 4.42 L 3.74 L Hgb 13.5 11.5 L Hct 41.4 37.5 L MCV 93.7 100.3 H D MCH 30.5 30.7 MCHC 32.6 30.7 L D RDW Std Deviation 49.6 H 53.8 H RDW Coeff of Helder 14.4 14.7 H Plt Count 176 142 L MPV 10.3 10.5 Immature Gran % (Auto) 0.200 0.300 Neut % (Auto) 72.0 H 55.2 Lymph % (Auto) 14.3 L 30.2 [place] % (Auto) 13.1 H 11.3 H Eos % (Auto) 0.2 2.7 Baso % (Auto) 0.2 0.3 Absolute Neuts (auto) 6.6 3.9 Absolute Lymphs (auto) 1.31 2.15 Nucleated RBC % 0 0 Sodium 136 Potassium 3.9 Chloride 102 Carbon Dioxide 26.0 Anion Gap 8 BUN 37 H Creatinine 1.44 H Estim Creat Clear Calc 38.02 Est GFR (MDRD) Af Amer 60 Est GFR (MDRD) Non-Af 49 L BUN/Creatinine Ratio 25.7 H Glucose 192 H Calcium 9.1 Total Bilirubin 1.00 AST 10 L ALT 14 L Alkaline Phosphatase 67 Total Protein 7.0 Albumin 3.3 Globulin 3.7 Albumin/Globulin Ratio 0.9 Lipase 78 05/09/21 05:58 WBC RBC Hgb Hct MCV MCH MCHC RDW Std Deviation RDW Coeff of Helder Plt Count MPV Immature Gran % (Auto) Neut % (Auto) Lymph % (Auto) [place] % (Auto) Eos % (Auto) Baso % (Auto) Absolute Neuts (auto) Absolute Lymphs (auto) Nucleated RBC % Sodium 138 Potassium 3.9 Chloride 107 Carbon Dioxide 24.0 Anion Gap 7 BUN 30 H Creatinine 1.18 Estim Creat Clear Calc 47.86 Est GFR (MDRD) Af Amer 75 Est GFR (MDRD) Non-Af 62 BUN/Creatinine Ratio 25.4 H Glucose 136 H Calcium 8.4 L Total Bilirubin AST ALT Alkaline Phosphatase Total Protein Albumin Globulin Albumin/Globulin Ratio Lipase Radiography Diagnostic Testing: Radiology Impression Abdomen/Pelvis CT 05/08/21 20:05 IMPRESSION: Small bowel obstruction 1. Mild fluid and gaseous distention of the small bowel starting at the origin of the jejunum and continuing into the distal jejunum in the right mid abdomen where there is transition from dilated bowel to collapsed bowel likely due to an extrinsic adhesion, see image 101/152 series 2. The remaining small bowel loops are unremarkable. 2. The colon is stool-filled. The appendix is not seen. Normal stomach. 3. No free air or free fluid. Electronically Signed: Stephen Zimmerman MD at 21:10 EDT , Service support , D/C Instructions Discharge Diet: Light diet - advance as tolerated Call your doctor if you observe: Inability to have a bowel movement Please Follow Up With: Dwight Garcia MD Meaningful Use Info Meaningful Use Diagnoses (Choose all that apply): None applicable Discharge Plan Admission Admit Date/Time: 05/08/21 21:43 Primary Reason for Your Visit: Small bowel obstruction Attending Provider: Geeta Healy Primary Care Provider: Saul Clark Consulting Providers: Mike Rodriguez Instructions Additional Instructions / Restrictions: Patient Problems: Altered Health Status related to Hospitalization Patient Goals: *Optimal Level of Health *Keep Appointments *Medication Compliance *Remain Safe Discharge Orders/Prescriptions Prescriptions: Continued amlodipine 2.5 mg tablet 2.5 mg PO DAILY Qty: 90 RF: 3 hydrochlorothiazide 25 mg tablet 25 mg PO DAILY Qty: 90 RF: 3 metoprolol tartrate 50 mg tablet 50 mg PO BID Qty: 180 RF: 3 ramipril 10 mg capsule 10 mg PO BID Qty: 180 RF: 3 rosuvastatin 20 mg tablet 20 mg PO QHS Qty: 90 RF: 3 nitroglycerin 0.4 mg tablet, sublingual 0.4 mg SUBLINGUAL Q5M PRN (Reason: Chest Pain) Qty: 25 RF: 3 aspirin 81 MG tablet,chewable 81 mg PO DAILY@0800 RF: 0 clopidogrel [Plavix] 75 mg tablet 75 mg PO DAILY Qty: 90 RF: 3 pantoprazole 20 mg tablet,delayed release (DR/EC) See Rx Instructions .ROUTE .COMPLEX Qty: 90 RF: 3 Referrals / Follow Up: Mike Rodriguez MD [STAFF PHYSICIAN] - See Referral Note (As needed) Dwight Garcia MD [STAFF PHYSICIAN] - See Referral Note (As scheduled 05/10/21) Saul Clark MD [Primary Care Provider] - 05/17/21 8:30 am Disposition Disposition (needs filled in before D/C Order can be placed): Home, self care Documented by User: Dr. Geeta Healy MD 05/09/21 11:55 Providers Date of Admission: 05/08/21 Reason For Visit: SBO Medications at Discharge Home Medications aspirin 81 mg PO DAILY@0800 11/29/14 clopidogrel 75 mg tablet 75 mg PO DAILY #90 tab 05/17/20 amlodipine 2.5 mg tablet 2.5 mg PO DAILY #90 tab 05/18/20 hydrochlorothiazide 25 mg tablet 25 mg PO DAILY #90 tab 05/18/20 metoprolol tartrate 50 mg tablet 50 mg PO BID #180 tab 05/18/20 nitroglycerin 0.4 mg sublingual tablet 0.4 mg SUBLINGUAL Q5M PRN #25 tab 05/18/20 ramipril 10 mg capsule 10 mg PO BID #180 cap 05/18/20 rosuvastatin 20 mg tablet 20 mg PO QHS #90 tab 05/18/20 pantoprazole 20 mg tablet,delayed release See Rx Instructions .ROUTE .COMPLEX #90 tab 04/02/21 Hospital Course Summary of Care Provided Minutes Spent on Discharge: 26 Hospital Course: Hospitalist note: Discharge summary above reviewed and I concur with the above and I concur with the above discharge and treatment plan. Patient presented to the emergency room because of abdominal pain. He had a history of multiple abdominal surgeries and recurrent history of multiple obstruction status post lysis of adhesions [address] scan abdomen and pelvis revealed findings consistent with small bowel obstruction with large amount of stool and gas in the colon. Routine blood work was unremarkable. Patient was admitted to [facility] floor, treated conservatively with IV fluids, IV pain medications and IV antiemetics. General surgery consulted and recommended to continue conservative treatment. Today, patient had large 2 bowel movements. He tolerated diet very well. He had no more abdominal pain. Patient had multiple admissions for small bowel obstruction which usually resolves spontaneously. General surgery recommended no plan for surgery, small bowel obstruction resolved. Patient discharged home in a stable medical condition, continued on his previous home medication without any changes, plan to follow-up with general surgery as outpatient if needed., recommended from with PCP in 1 week. This note was generated with [employer] dictation software. It may contain incorrect words, spelling, and punctuation that were not noted in checking the note before signing. ABG / Lab / Microbiology Data Result Diagrams: 05/09/21 05:58 05/09/21 05:58 Discharge Plan Admission Admit Date/Time: 05/08/21 21:43 Primary Reason for Your Visit: Small bowel obstruction Attending Provider: Geeta Healy Primary Care Provider: Saul Clark Consulting Providers: Mike Rodriguez Instructions Additional Instructions / Restrictions: Patient Problems: Altered Health Status related to Hospitalization Patient Goals: *Optimal Level of Health *Keep Appointments *Medication Compliance *Remain Safe Discharge Orders/Prescriptions Prescriptions: Continued amlodipine 2.5 mg tablet 2.5 mg PO DAILY Qty: 90 RF: 3 hydrochlorothiazide 25 mg tablet 25 mg PO DAILY Qty: 90 RF: 3 metoprolol tartrate 50 mg tablet 50 mg PO BID Qty: 180 RF: 3 ramipril 10 mg capsule 10 mg PO BID Qty: 180 RF: 3 rosuvastatin 20 mg tablet 20 mg PO QHS Qty: 90 RF: 3 nitroglycerin 0.4 mg tablet, sublingual 0.4 mg SUBLINGUAL Q5M PRN (Reason: Chest Pain) Qty: 25 RF: 3 aspirin 81 MG tablet,chewable 81 mg PO DAILY@0800 RF: 0 clopidogrel [Plavix] 75 mg tablet 75 mg PO DAILY Qty: 90 RF: 3 pantoprazole 20 mg tablet,delayed release (DR/EC) See Rx Instructions .ROUTE .COMPLEX Qty: 90 RF: 3 Referrals / Follow Up: Mike Rodriguez MD [STAFF PHYSICIAN] - See Referral Note (As needed) Dwight Garcia MD [STAFF PHYSICIAN] - See Referral Note (As scheduled 05/10/21) Saul Clark MD [Primary Care Provider] - 05/17/21 8:30 am Disposition Disposition (needs filled in before D/C Order can be placed): Home, self care Charges/Coding Visit Charges OBSV E&M: 07577 Observation care discharge
--- NOTE | 2021-05-09 11:07 | PHA.DC.MR ---
Pharmacy Service has performed discharge medication reconciliation for this patient. The patient's discharge medication list was reviewed for discrepancies and discrepancies were resolved. Home Medications aspirin 81 mg PO DAILY@0800 11/29/14 clopidogrel 75 mg tablet 75 mg PO DAILY #90 tab 05/17/20 amlodipine 2.5 mg tablet 2.5 mg PO DAILY #90 tab 05/18/20 hydrochlorothiazide 25 mg tablet 25 mg PO DAILY #90 tab 05/18/20 metoprolol tartrate 50 mg tablet 50 mg PO BID #180 tab 05/18/20 nitroglycerin 0.4 mg sublingual tablet 0.4 mg SUBLINGUAL Q5M PRN #25 tab 05/18/20 ramipril 10 mg capsule 10 mg PO BID #180 cap 05/18/20 rosuvastatin 20 mg tablet 20 mg PO QHS #90 tab 05/18/20 pantoprazole 20 mg tablet,delayed release See Rx Instructions .ROUTE .COMPLEX #90 tab 04/02/21
--- NOTE | 2021-05-09 12:15 | CHAPLAIN ---
Type of Pastoral Visit _x__ Initial Visit ___ Follow-up Visit ___ On-call Visit ___ General Patient Visit ___ Spiritual Assessment ___ Family Conference ___ Bereavement ___ Rapid Response ___ Code Blue ___ Other (describe below) Pastoral Care Referral From _x__ Patient ___ Family ___ Nurse ___ Physician ___ Joint Filler ___ Cloth Shrinker ___ Other (describe below) Sacrament/Intervention _x__ Active listening ___ Anointing ___ Holiness ___ Bereavement ___ Communion _x__ Kortney exploration ___ _x__ Life review _x__ Prayer ___ Reconciliation ___ Sacrament of Sick _x__ Supportive presence ___ Wedding ___ Other (describe below) Pastoral Comments
== END 2021-05-09 10:41 | disposition home or self-care (01) ==
LOC: ED 21:38 → PCU 21:54
PROVIDERS: Admitting Provider Hospitalist; Emergency Provider Emergency Medicine; PCP Family Medicine; Visit Provider Hospitalist
DX: K56.699 Other intestinal obstruction unspecified as to partial versus complete obstruction (principal); N40.0 Benign prostatic hyperplasia without lower urinary tract symptoms; I25.10 Atherosclerotic heart disease of native coronary artery without angina pectoris; E11.9 Type 2 diabetes mellitus without complications; I10 Essential (primary) hypertension; E78.5 Hyperlipidemia, unspecified; I25.2 Old myocardial infarction; I48.0 Paroxysmal atrial fibrillation; K21.9 Gastro-esophageal reflux disease without esophagitis; Z79.899 Other long term (current) drug therapy; Z79.02 Long term (current) use of antithrombotics/antiplatelets; Z79.82 Long term (current) use of aspirin; Z87.891 Personal history of nicotine dependence; Z95.1 Presence of aortocoronary bypass graft; Z90.49 Acquired absence of other specified parts of digestive tract; Z92.3 Personal history of irradiation; Z85.46 Personal history of malignant neoplasm of prostate
CPT/HCPCS: 36415; 74018; 74019; 74177; 80048; 80053; 80061; 83690; 85025; 96361; 96365; 96375; 99218; 99284; J7030; Q9967; A4216; G0378; J2405

== ENCOUNTER → 2021-11-07 11:25 | Outpatient (CLI) | payer MEDICARE, SELFPAY ==
[2021-11-07 13:18] LABS: AST(SGOT) 12 U/L (15-37); Alanine Aminotransfer ALT/SGPT 16 U/L (16-61); Albumin, Serum 3.4 g/dL (3.2-5.0); Alkaline Phosphatase 66 U/L (45-117); Cholesterol 128 mg/dL (200); Globulin 3.7 g/dL (2.2-4.2); High Density Lipoprotein 50 mg/dL; Protein, Total 7.1 g/dL (6.4-8.2); Triglycerides 162 mg/dL; Very Low Density Lipoprotein 32 mg/dL (5-40)
== END ==
PROVIDERS: PCP Family Medicine; Visit Provider Physician Assistant Medical
DX: E78.00 Pure hypercholesterolemia, unspecified (principal)
CPT/HCPCS: 36415; 80061; 80076

== ENCOUNTER 2021-12-05 14:36 | Emergency (ER) | payer MEDICARE, SELFPAY ==
[2021-12-05 14:37] VITALS: BP 101/67; PULSE 96; RESP 20; TEMP 36.4; O2SAT 97; BMI 33.7
[2021-12-05 14:59] LABS: Absolute Lymphocyte Count 1.75 X10^3/uL (0.83-4.51); Absolute Neutrophil Count 6.3 X10^3/uL (2.0-7.7); Basophil# 0.02 X10^3/uL; Basophil% 0.2 % (0-1); Eosinophil# 0.02 X10^3/uL; Eosinophils% 0.2 % (0-5); Hematocrit 41.3 % (40-54); Hemoglobin 13.4 g/dL (13.0-16.5); Lymphocyte # 1.75 X10^3/ul (0.83-4.51); Lymphocyte % 19.9 % (19-41); Mean Corp Hgb Conc 32.4 g/dL (32-36); Mean Corpuscular Hgb 30.2 pg (27.0-32.0); Mean Platelet Vol. 10.5 fl (6.2-12.0); Monocyte# 0.64 X10^3/uL; Monocyte% 7.3 % (0-10); NRBC Flagged by Analyzer 0 % (0-5); Neutrophil # 6.32 X10^3/uL (2.7-7.7); Neutrophil % 71.9 % (47-70); Platelet Count 203 K/mm3 (150-450); RBC Distribution Width CV 14.5 % (11.6-14.6); RBC Distribution Width SD 49.1 fl (35.1-43.9); Red Blood Count 4.44 M/mm3 (4.6-6.2); White Blood Count 8.8 K/mm3 (4.4-11.0)
[2021-12-05 15:11] LABS: Anion Gap 11 (5-15); BUN 31 mg/dL (7-18); BUN/Creat Ratio 24.2 RATIO (10-20); Calcium,Total 9.4 mg/dL (8.5-10.1); Chloride 102 mmol/L (98-107); Creatinine, Serum 1.28 mg/dL (0.70-1.30); EST Glomerular Filtration Rate 57 mL/min (>60); Est Glom Filt Rate - Afr Amer 68 mL/min (>60); Estimated Creatinine Clearance 44.12 ml/min; Glucose 180 mg/dL (74-106); Potassium 3.9 mmol/L (3.5-5.1); Sodium Level 139 mmol/L (136-145)
--- NOTE | 2021-12-05 15:17 | NURSING ---
LACTIC ACID HEMOLIZED
[2021-12-05 18:40] VITALS: BP 136/76; PULSE 83; RESP 18; TEMP 36.8; O2SAT 96
--- NOTE | 2021-12-05 18:48 | CT_ITS ---
STUDY: CT ABDOMEN AND PELVIS WITH CONTRAST REASON FOR EXAM: Male, 86 years old. sbo RADIATION DOSAGE (If Supplied By Facility): CTDIvol = ( 18.51 ) mGy, DLP = ( 1425.99 ) mGycm TECHNIQUE: Transaxial images were obtained from the dome of the diaphragm to the symphysis pubis without oral contrast. IV 100mL Isovue-370 was administered. Sagittal and coronal images were reconstructed. Individualized dose optimization techniques were used for this CT. COMPARISON: 05/08/2021 FINDINGS: Mild bibasilar interstitial thickening.. Heart size is normal. There is coronary artery calcification. Normal liver. Multiple calcified tiny gallstones without evidence for pericholecystic edema. Spleen is normal in size and demonstrate linear calcific septation possibly due to old trauma or inflammatory disease. Normal pancreas. Normal bilateral adrenal glands. No evidence for renal obstruction. There are multiple small bilateral parapelvic and tiny cortical cysts. Normal visualized stomach. Normal small intestine. Postsurgical changes status post resection of descending colon. No evidence for acute appendicitis. Mild atherosclerotic changes of the aorta without evidence for aneurysm Normal inferior vena cava. Normal retroperitoneum. Normal urinary bladder. 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 Lumbar spine demonstrates mild spondylosis CT/Abdomen/Pelvis W IV Cont ONLY IMPRESSION: Cholelithiasis without evidence for acute cholecystitis.. Postop change status post resection of descending colon No evidence for small bowel obstruction. Small left inguinal hernia containing loops small bowel without proximal obstruction or incarceration Bilateral renal cysts Findings as above Electronically Signed: Tree Mendieta MD at 19:52 EST , Service support ,
--- NOTE | 2021-12-05 18:49 | EDS_ITS ---
HPI HPI - GI History of Present Illness Chief Complaint: Abd Pain Detail of Chief Complaint: Limited bowel movement. Informant: patient Abdominal Pain/Flank Pain Onset: Yesterday Context: Gradual Onset Timing: Continuous Quality: Cramping Location: Diffuse Current Severity: Mild Maximum Severity: Mild Worsened by: Nothing Relieved by: Nothing Nausea/Vomiting/Emesis GI Symptom: Positive for Nausea and Vomiting Onset: Today Severity: Mild Diarrhea/Melena/Hematochezia GI Symptom: Negative for Diarrhea, Melena and Hematochezia Associated Symptoms Associated Symptoms: Negative for Dysuria, Frequency, Hematuria and Urgency Narrative Narrative: 86-year-old male history of prior colon cancer with partial re section. Also prior numerous hernia repairs with small bowel obstructions in the past. He also has a history of CAD with a CABG A. fib and hypertension. Patient states I have a bowel obstruction again. Started having abdominal discomfort yesterday with mild nausea vomiting. He had a very small bowel movement today. Says he is passing gas. His abdominal pain is improving. Denies any dysuria. No fever. Prior similar symptoms: Yes Recent Illness/Hospitalization: No PFSH PFSH Medical History Atherosclerosis of coronary artery of [place] heart without angina pectoris Basal cell carcinoma BPH (benign prostatic hyperplasia) Colon cancer Former smoker GERD (gastroesophageal reflux disease) Hyperlipidemia Hypertension Old myocardial infarction Paroxysmal atrial fibrillation SBO (small bowel obstruction) Small bowel obstruction Type 2 diabetes mellitus without complications Wears hearing aid in both ears Home Medications aspirin 81 mg PO DAILY@0800 11/29/14 [History Last Taken 05/08/21] nitroglycerin 0.4 mg sublingual tablet 0.4 mg SUBLINGUAL Q5M PRN #25 tab 05/18/20 [Rx Last Taken Unknown] pantoprazole 20 mg tablet,delayed release See Rx Instructions .ROUTE .COMPLEX #90 tab 04/02/21 [Rx Last Taken 05/07/21] ramipril 10 mg capsule 10 mg PO BID #180 cap 05/14/21 [Rx Last Taken Unknown] metoprolol tartrate 50 mg tablet 50 mg PO BID #180 tab 05/28/21 [Rx Last Taken Unknown] amlodipine 2.5 mg tablet 2.5 mg PO DAILY #90 tab 05/30/21 [Rx Last Taken Unknown] rosuvastatin 20 mg tablet 20 mg PO QHS #90 tab 05/30/21 [Rx Last Taken Unknown] hydrochlorothiazide 25 mg tablet 25 mg PO DAILY #90 tab 06/08/21 [Rx Last Taken Unknown] Allergy/AdvReac Type Severity Reaction Status Date / Time Sulfa (Sulfonamide Allergy itching, Verified 12/05/21 14:41 Antibiotics) headache cyclobenzaprine AdvReac severe Verified 12/05/21 14:41 headache Family History Mother CVA (cerebral vascular accident) Surgical History H/O coronary artery bypass surgery (10/17/04) History of herniorrhaphy History of left heart catheterization (05/20/18) History of partial colectomy Social History Smoking Status: Former smoker alcohol intake: never substance use type: does not use what type of physical activity do you participate in: bicycling frequency: 3-4 times per week ROS ROS ED ROS Narrative Nausea and vomiting. Abdominal cramping. Review of Systems ROS Unobtainable: Denies due to encephalopathy Constitutional Constitutional ED: Denies chills or fever(s) ENT ENT ED: Denies ear pain Cardiovascular Cardiovascular: Denies chest pain Respiratory/Chest Respiratory/Chest: Denies cough or dyspnea Gastrointestinal Gastrointestinal: Reports abdominal pain, constipation, nausea and vomiting; Denies diarrhea or melena Genitourinary Genitourinary ED: Denies dysuria Musculoskeletal Musculoskeletal: Denies myalgias Integumentary Denies rash Neurologic Neurologic: Denies headache(s) Psychiatric Psychiatric: Denies depression Endocrine Endocrinology: Denies polyuria Hematologic/Lymphatic Hematologic/Lymphatic: Denies easy bruising Allergic/Immunologic Allergic/Immunologic ED: Denies urticaria EXAM Physical Exam Narrative Exam Narrative: 86-year-old male no acute distress vital signs stable afebrile. H EENT exam unremarkable. Lungs are clear. Heart regular rhythm rate about 85. Abdomen soft nondistended. Decreased bowel sounds. No peritoneal signs. Minimally tender. No mass. He does have a left inguinal hernia that seems to reduce easily. Moving all 4 extremities. Nontender no edema. Neurologically is awake and alert with no focal motor deficits. Const Vital Signs: 12/05/21 14:37 12/05/21 18:40 Temperature 97.6 F L 98.3 F Temperature Source Temporal Oral Pulse Rate 96 83 Respiratory Rate 20 H 18 Blood Pressure 101/67 136/76 H Blood Pressure Mean 78 96 Pulse Ox 97 96 Oxygen Delivery Method Room Air Positive well nourished, well developed and obese; Negative for cachectic, contractures or unkempt General Appearance ED: well developed and NAD; Negative for unkempt, cachectic, contractures or pallor Nutritional Appearance: obese; Negative for cachectic HEENT Reports moist mucous membranes normocephalic and atraumatic Eyes PERRL and EOMs intact bilaterally Neck no lymphadenopathy, supple and no JVD General: Negative for tenderness Resp normal respiratory effort and clear to auscultation bilaterally Auscultation: Negative for rales, rhonchi or wheezes Cardio regular rate, regular rhythm, S1 normal heart sound, S2 normal heart sound and no murmurs GI non-distended and no masses; Negative for non-tender Auscultation: hypoactive bowel sounds; Negative for normoactive bowel sounds Palpation: soft and tender; Negative for guarding, rigid or rebound tenderness present Back/Spine no CVA tenderness Extremity full ROM General Extremety ED: Negative for edema or tenderness General Extremity: Negative for edema Neuro moves all extremities Sensorium / Orientation: alert, oriented to person, oriented to place and oriented to time; Negative for orientation impaired, confused, lethargic or stuporous Motor Exam: strength 5/5 throughout Psych mental status grossly normal and thought process normal Appearance: Negative for unkempt Skin no wounds General Skin Exam: Negative for jaundice or pallor Lesions: no lesions Rashes: no rashes MDM MDM MDM Narrative Medical decision making narrative: 86-year-old male abdominal pain with decreased bowel movements. Had outpatient plain films today that was concerning for a partial small bowel obstruction. CAT scan being obtained. Currently does not writhing for pain or nausea. Repeat exam patient is doing well at 8:25 PM. Abdomen is benign. Patient will be discharged home with Zofran as needed. Fluids and rest and increased his diet slowly. Clinically the patient may have had either an ileus or partial small bowel obstruction earlier but is since resolved. I discussed this with surgery on-call where comfortable to CAT scan patient be discharged home with outpatient follow-up. Lab Data Attestation: I reviewed the patient's lab results. Lab results narrative: CBC shows a white count 8. Hemoglobin 13.4. Platelets of 203. Electrolytes unremarkable gap 11. BUN is elevated at 31 creatinine 1.28. Glucose 180. CAT scan shows gallstones but no cholecystitis. And no signs of bowel obstruction. Read by the radiologist and reviewed by me. Also hernias but no signs of obstruction and hernias. Labs: Laboratory Results - last 24 hr 12/05/21 12/05/21 12/05/21 14:43 14:43 14:43 WBC 8.8 RBC 4.44 L Hgb 13.4 Hct 41.3 MCV 93.0 MCH 30.2 MCHC 32.4 RDW Std Deviation 49.1 H RDW Coeff of Helder 14.5 Plt Count 203 MPV 10.5 Immature Gran % (Auto) 0.500 Neut % (Auto) 71.9 H Lymph % (Auto) 19.9 [place] % (Auto) 7.3 Eos % (Auto) 0.2 Baso % (Auto) 0.2 Absolute Neuts (auto) 6.3 Absolute Lymphs (auto) 1.75 Nucleated RBC % 0 Sodium 139 Potassium 3.9 Chloride 102 Carbon Dioxide 26.0 Anion Gap 11 BUN 31 H Creatinine 1.28 Estim Creat Clear Calc 44.12 Est GFR (MDRD) Af Amer 68 Est GFR (MDRD) Non-Af 57 L BUN/Creatinine Ratio 24.2 H Glucose 180 H Lactic Acid Cancelled Calcium 9.4 Radiography Diagnostic Testing: Clinical Impression(s) from Imaging Studies Abdomen/Pelvis CT 12/05/21 18:48 IMPRESSION: Cholelithiasis without evidence for acute cholecystitis.. Postop change status post resection of descending colon No evidence for small bowel obstruction. Small left inguinal hernia containing loops small bowel without proximal obstruction or incarceration Bilateral renal cysts Findings as above Electronically Signed: Tree Mendieta MD at 19:52 EST , Service support , Discharge Plan Triage Chief Complaint: Abd Pain ED Provider: Teofilo Mcdonald Dx/Rx/DC Orders Clinical Impression: Hx of CABG, History of small bowel obstruction, Abdominal pain Instructions: ED Abdominal Pain Unkn Cause Male... Prescriptions: No Action nitroglycerin 0.4 mg tablet, sublingual 0.4 mg SUBLINGUAL Q5M PRN (Reason: Chest Pain) Qty: 25 RF: 3 aspirin 81 MG tablet,chewable 81 mg PO DAILY@0800 RF: 0 pantoprazole 20 mg tablet,delayed release (DR/EC) See Rx Instructions .ROUTE .COMPLEX Qty: 90 RF: 3 ramipril 10 mg capsule 10 mg PO BID Qty: 180 RF: 4 metoprolol tartrate 50 mg tablet 50 mg PO BID Qty: 180 RF: 3 rosuvastatin 20 mg tablet 20 mg PO QHS Qty: 90 RF: 3 amlodipine 2.5 mg tablet 2.5 mg PO DAILY Qty: 90 RF: 3 hydrochlorothiazide 25 mg tablet 25 mg PO DAILY Qty: 90 RF: 3 Primary Care Provider: Nathaly Gliman Referrals: Nathaly Gilman MD [Primary Care Provider] - 3-5 Days if not improving Activity Restrictions/Additional Instructions: Your CAT scan looked good tonight. No signs of obstruction. I think you may have been trying to get an obstruction but it has resolved on its own. Plenty of fluids and rest. Slowly increase your diet as tolerated. Return if feeling worse or increasing pain. Disposition Disposition: Home, Self Care
[2021-12-05 20:37] LABS: Bacteria 0 SEEN /hpf (None Seen); Mucous, Urine 0 SEEN /hpf (<or=2+); Red Blood Cells-Urine 0 SEEN /hpf (0-5); Squamous Epithelial Cells - UA 0 SEEN /hpf (0-5); White Blood Cells 0 SEEN /hpf (0-5)
[2021-12-05 20:40] VITALS: BP 126/76; PULSE 88; RESP 18; O2SAT 99
[2021-12-05 20:45] LABS: Color, Urine Yellow (Yellow); Glucose, Dipstick Normal (Normal); Ketone-Dipstick 5 mg/dl (Negative); Leukocyte Esterase-Dipstick Negative /ul (Negative); Nitrite-Dipstick Negative (Negative); Occult Blood-Urine Negative /ul (Negative); Protein-Dipstick 15 mg/dl (Negative); Specific Gravity, Urine 1.015 (1.002-1.030); Urine Bilirubin Dipstick Negative (Negative); Urine Clarity Clear (Clear); Urine Urobilinogen Normal (Normal)
== END 2021-12-05 20:41 | disposition home or self-care (01) ==
PROVIDERS: Emergency Provider Emergency Medicine; PCP Family Medicine; Visit Provider Emergency Medicine
DX: R11.2 Nausea with vomiting, unspecified (principal); I48.0 Paroxysmal atrial fibrillation; E11.9 Type 2 diabetes mellitus without complications; R10.9 Unspecified abdominal pain; I25.10 Atherosclerotic heart disease of native coronary artery without angina pectoris; I10 Essential (primary) hypertension; Z95.1 Presence of aortocoronary bypass graft; Z85.038 Personal history of other malignant neoplasm of large intestine; N40.0 Benign prostatic hyperplasia without lower urinary tract symptoms; K21.9 Gastro-esophageal reflux disease without esophagitis; Z87.891 Personal history of nicotine dependence; E78.5 Hyperlipidemia, unspecified; E66.9 Obesity, unspecified; K40.90 Unilateral inguinal hernia, without obstruction or gangrene, not specified as recurrent
CPT/HCPCS: 74019; 74177; 80048; 81001; 85025; 99283; Q9967; A4216

== ENCOUNTER → 2022-08-08 | Outpatient (CLI) | payer MEDICARE, SELFPAY ==
[2022-08-08 10:38] LABS: AST(SGOT) 12 U/L (15-37); Alanine Aminotransfer ALT/SGPT 16 U/L (16-61); Albumin, Serum 3.2 g/dL (3.2-5.0); Alkaline Phosphatase 67 U/L (45-117); Bilirubin, Direct 0.12 mg/dL (0.00-0.30); Cholesterol 132 mg/dL (200); Globulin 3.6 g/dL (2.2-4.2); High Density Lipoprotein 52 mg/dL; Protein, Total 6.8 g/dL (6.4-8.2); Triglycerides 150 mg/dL; Very Low Density Lipoprotein 30 mg/dL (5-40)
== END | disposition home or self-care (01) ==
LOC: MTLAB 07:51
PROVIDERS: PCP Family Medicine; Referring Provider Internal Medicine Cardiovascular Disease; Visit Provider Internal Medicine Cardiovascular Disease
DX: E78.00 Pure hypercholesterolemia, unspecified (principal)
CPT/HCPCS: 36415; 80061; 80076

== ENCOUNTER → 2023-02-28 | Outpatient (CLI) | payer OTHER, SELFPAY ==
[2023-02-28 10:16] LABS: AST(SGOT) 14 U/L (15-37); Alanine Aminotransfer ALT/SGPT 17 U/L (16-61); Albumin, Serum 3.3 g/dL (3.2-5.0); Alkaline Phosphatase 70 U/L (45-117); Bilirubin, Direct 0.16 mg/dL (0.00-0.30); Cholesterol 129 mg/dL (200); Globulin 3.5 g/dL (2.2-4.2); High Density Lipoprotein 52 mg/dL; Protein, Total 6.8 g/dL (6.4-8.2); Triglycerides 129 mg/dL; Very Low Density Lipoprotein 26 mg/dL (5-40)
== END | disposition home or self-care (01) ==
LOC: MTLAB 08:39
PROVIDERS: PCP Family Medicine; Referring Provider Physician Assistant Medical; Visit Provider Physician Assistant Medical
DX: E78.00 Pure hypercholesterolemia, unspecified (principal)
CPT/HCPCS: 36415; 80061; 80076

== ENCOUNTER → 2023-07-16 | Outpatient (CLI) | payer OTHER, SELFPAY ==
[2023-07-16 15:48] LABS: ALB/GLOB Ratio 0.9 RATIO (0.9-2.4); AST(SGOT) 18 U/L (15-37); Alanine Aminotransfer ALT/SGPT 17 U/L (16-61); Albumin, Serum 3.6 g/dL (3.2-5.0); Alkaline Phosphatase 73 U/L (45-117); Anion Gap 5 (5-15); BUN 30 mg/dL (7-18); BUN/Creat Ratio 23.3 RATIO (10-20); Calcium,Total 9.1 mg/dL (8.5-10.1); Chloride 105 mmol/L (98-107); Creatinine, Serum 1.29 mg/dL (0.70-1.30); EST Glomerular Filtration Rate 56 mL/min (>60); Est Glom Filt Rate - Afr Amer 68 mL/min (>60); Globulin 3.8 g/dL (2.2-4.2); Glucose 209 mg/dL (74-106); Potassium 4.4 mmol/L (3.5-5.1); Protein, Total 7.4 g/dL (6.4-8.2); Sodium Level 137 mmol/L (136-145)
[2023-07-16 15:56] LABS: Hemoglobin A1c 9.5 % (3.8-5.6)
== END | disposition home or self-care (01) ==
LOC: MFPLAB 12:08
PROVIDERS: PCP Family Medicine; Visit Provider Family Medicine
DX: E11.65 Type 2 diabetes mellitus with hyperglycemia (principal)
CPT/HCPCS: 36415; 80053; 83036

== ENCOUNTER 2023-09-24 17:56 | Emergency (ER) | payer OTHER, SELFPAY ==
[2023-09-24 17:57] VITALS: BP 169/85; PULSE 76; RESP 18; TEMP 36.6; O2SAT 97; BMI 33.5
[2023-09-24 19:56] VITALS: BP 167/84; PULSE 68; RESP 22; O2SAT 98
[2023-09-24 21:00] VITALS: BP 160/81; PULSE 68; RESP 14; O2SAT 95
[2023-09-24 21:01] LABS: Absolute Neutrophil Count 3.4 X10^3/uL (2.0-7.7); Basophil# 0.05 X10^3/uL; Basophil% 0.7 % (0-1); Eosinophil# 0.23 X10^3/uL; Eosinophils% 3.2 % (0-5); Hematocrit 37.8 % (40-54); Hemoglobin 12.2 g/dL (13.0-16.5); Lymphocyte % 38.1 % (19-41); Mean Corp Hgb Conc 32.3 g/dL (32-36); Mean Corpuscular Hgb 31.7 pg (27.0-32.0); Mean Corpuscular Volume 98.2 fL (80-94); Mean Platelet Vol. 10.6 fl (6.2-12.0); Monocyte# 0.72 X10^3/uL; Monocyte% 10.2 % (0-10); NRBC Flagged by Analyzer 0 % (0-5); Neutrophil # 3.36 X10^3/uL (2.7-7.7); Neutrophil % 47.5 % (47-70); Platelet Count 121 K/mm3 (150-450); RBC Distribution Width CV 13.4 % (11.6-14.6); RBC Distribution Width SD 47.7 fl (35.1-43.9); Red Blood Count 3.85 M/mm3 (4.6-6.2); White Blood Count 7.1 K/mm3 (4.4-11.0)
[2023-09-24 21:30] LABS: Anion Gap 5 (5-15); BUN 24 mg/dL (7-18); BUN/Creat Ratio 19.8 RATIO (10-20); Calcium,Total 8.3 mg/dL (8.5-10.1); Chloride 108 mmol/L (98-107); Creatinine, Serum 1.21 mg/dL (0.70-1.30); EST Glomerular Filtration Rate 60 mL/min (>60); Est Glom Filt Rate - Afr Amer 73 mL/min (>60); Estimated Creatinine Clearance 44.94 ml/min; Glucose 203 mg/dL (74-106); Sodium Level 140 mmol/L (136-145)
--- NOTE | 2023-09-24 21:43 | EDS_ITS ---
HPI History of Present Illness Chief Complaint: Hypertension Detail of Chief Complaint: Pressure and elevated blood pressure of 202 systolic Informant: patient and family (Was supplemented by spouse and daughter since he is not a good informant.) Onset/Context/Timing Onset: Today Context: Gradual Onset Timing: Continuous Quality: Pressure Location: Global had Current Severity: Mild Maximum Severity: Moderate Worsened by: Nothing Relieved by: Nothing Associated Symptoms Associated Symptoms: None Narrative Narrative: Patient is an 88-year-old male who is hard of hearing and does not have his hearing aids. He has history of essential hypertension, paroxysmal atrial fibrillation, hyperlipidemia, atherosclerotic heart disease with quadruple byp ass October 2004. He presents because of a pressure sensation in his head and documented blood pressure of 202. He denied double vision, blurred vision loss of vision. He denies ringing's ears or decreased hearing from normal. He denies trouble with speech or swallowing. He denies cardiac symptoms. He denies respiratory symptoms. He denies GI symptoms. He denies urologic symptoms and denies decreased urine output. He denies paresthesia, anesthesia or motor weakness. Patient is on aspirin and Plavix. There is no history of head trauma. He is also noted to be on PPI. He denies black stool or maroon stool. Prior similar symptoms: No Recent Illness/Hospitalization: No PFSH PFSH Medical History Atherosclerosis of coronary artery of [place] heart without angina pectoris Basal cell carcinoma BPH (benign prostatic hyperplasia) Colon cancer Essential hypertension Former smoker GERD (gastroesophageal reflux disease) Hyperlipidemia Old myocardial infarction Paroxysmal atrial fibrillation SBO (small bowel obstruction) Small bowel obstruction Type 2 diabetes mellitus without complications Wears hearing aid in both ears Home Medications aspirin 81 mg chewable tablet 81 mg PO DAILY@0800 HEART 11/29/14 [History Last Taken 05/08/21] nitroglycerin 0.4 mg sublingual tablet 0.4 mg sublingual Q5M PRN Chest Pain #25 tabs 05/18/20 [Rx Last Taken Unknown] amlodipine 2.5 mg tablet 2.5 mg PO DAILY bp #90 tabs 03/11/23 [Rx Last Taken Unknown] metoprolol tartrate 50 mg tablet 50 mg PO BID heart #180 tabs 03/24/23 [Rx Last Taken Unknown] rosuvastatin 20 mg tablet 20 mg PO QHS CHOLESTEROL #90 tabs 03/24/23 [Rx Last Taken Unknown] clopidogrel 75 mg tablet 75 mg PO DAILY #90 tabs 06/02/23 [Rx Last Taken Unknown] pantoprazole 20 mg tablet,delayed release See Rx Instructions .Route .COMPLEX #180 tabs 06/16/23 [Rx Last Taken Unknown] ramipril 10 mg capsule 10 mg PO BID bp #180 caps 06/16/23 [Rx Last Taken Unknown] hydrochlorothiazide 25 mg tablet 25 mg PO DAILY bp #90 tabs 08/26/23 [Rx Last Taken Unknown] Allergy/AdvReac Type Severity Reaction Status Date / Time Sulfa (Sulfonamide Allergy itching, Verified 09/24/23 18:00 Antibiotics) headache cyclobenzaprine AdvReac severe Verified 09/24/23 18:00 headache Family History Mother CVA (cerebral vascular accident) Surgical History H/O coronary artery bypass surgery (10/17/04) History of herniorrhaphy History of left heart catheterization (05/20/18) History of partial colectomy Social History Smoking Status: Former smoker alcohol intake: never substance use type: does not use what type of physical activity do you participate in: bicycling frequency: 3-4 times per week ROS ROS ED Constitutional Constitutional ED: Denies chills, fever(s), subjective, sweats or weight loss Eyes Eyes: Denies blurry vision, change in vision or diplopia ENT ENT ED: Denies ear pain, rhinorrhea or sore throat Cardiovascular Cardiovascular: Denies chest pain, orthopnea, palpitations, paroxysmal nocturnal dyspnea or racing heartbeat Respiratory/Chest Respiratory/Chest: Denies cough, dyspnea, dyspnea on exertion, orthopnea or paroxysmal nocturnal dyspnea Gastrointestinal Gastrointestinal: Denies abdominal pain, melena, nausea or vomiting Genitourinary Genitourinary ED: Denies dysuria, hematuria or urinary frequency Musculoskeletal Musculoskeletal: Denies arthralgias, back pain, myalgias or neck pain Integumentary Denies rash Neurologic Neurologic: Denies headache(s), paresthesias or weakness Hematologic/Lymphatic Hematologic/Lymphatic: Reports systems reviewed and no addt'l complaints, except as documented EXAM Physical Exam Const Vital Signs: 09/24/23 17:57 09/24/23 19:56 09/24/23 20:06 Temperature 97.8 F Temperature Source Temporal Pulse Rate 76 68 Respiratory Rate 18 22 H Respiratory Effort Short of Breath Respiratory Pattern Tachypnea Blood Pressure 169/85 H 167/84 H Blood Pressure Mean 113 111 Pulse Ox 97 98 Oxygen Delivery Method Room Air Room Air 09/24/23 21:00 09/24/23 21:57 Temperature Temperature Source Pulse Rate 68 75 Respiratory Rate 14 17 Respiratory Effort Respiratory Pattern Blood Pressure 160/81 H 155/87 H Blood Pressure Mean 107 109 Pulse Ox 95 96 Oxygen Delivery Method Room Air Room Air Positive well nourished and well developed Constitutional Narrative: Patient is hard of hearing. He does not have his hearing aids. General Appearance ED: well developed and NAD; Negative for cyanotic, diap horetic or pallor HEENT Reports moist mucous membranes HEENT Narrative: Ears normal. Nares patent. Posterior pharynx out erythema or exudate. Uvula is midline. There is no deviation with protrusion. Eyes PERRL and EOMs intact bilaterally General Eye ED: Negative for pale conjunctiva or scleral icterus Neck no lymphadenopathy, supple and no JVD Chest Wall inspection of chest normal and palpation of chest normal Resp normal respiratory effort and clear to auscultation bilaterally Cardio regular rate, regular rhythm, S1 normal heart sound, S2 normal heart sound and no murmurs GI normal to inspection, nondistended, normoactive bowel sounds, non-tender and non-distended; Negative for hepatosplenomegaly or no masses Palpation: soft Back/Spine Cervical Spine: Negative for cervical spine tenderness Thoracic Spine / Upper Back: Negative for thoracic spinal tenderness Lumbar Spine / Lower Back: Negative for lumbar spinal tenderness Extremity normal to inspection Extremity Narrative: Patient does have edema, which is chronic. There is no history of heart failure. He denies orthopnea. General Extremety ED: Yes edema; Negative for tenderness General Extremity: edema Neuro No oriented x3, No CN's II-XII intact bilaterally and No no sensory deficits noted Neuro Narrative: No dysmetria. There is no ataxia. There is no clonus or Babinski sign noted right or left. Sensorium / Orientation: Negative for alert Motor Exam: strength 5/5 throughout Psych mental status grossly normal Skin no rashes or lesions noted, no wounds and No skin turgor normal General Skin Exam: elasticity normal; Negative for jaundice or pallor MDM MDM MDM Narrative Medical decision making narrative: Presents with head pressure and elevated blood pressure. He was sent in because of this pressure sensation in his head. Since he has a normal neurologic exam and did not describe his headache will obtain BMP to assess renal function for endorgan dysfunction. CBC to assess for anemia. Sent was placed on the monitor to rule out dysrhythmia. Lab Data Attestation: I reviewed the patient's lab results. Lab results narrative: Count is normal. Mild anemia. BMP is remarked for elevated BUN and creatinine at 24 and 1.21 with a BUN/creatinine ratio of 19.8-1. Glucose is elevated 203 with a normal CO2 and anion gap. Labs: Laboratory Results - last 24 hr 09/24/23 20:54 WBC 7.1 RBC 3.85 L Hgb 12.2 L Hct 37.8 L MCV 98.2 H MCH 31.7 MCHC 32.3 RDW Std Deviation 47.7 H RDW Coeff of Helder 13.4 Plt Count 121 L MPV 10.6 Immature Gran % (Auto) 0.300 Neut % (Auto) 47.5 Lymph % (Auto) 38.1 [place] % (Auto) 10.2 H Eos % (Auto) 3.2 Baso % (Auto) 0.7 Absolute Neuts (auto) 3.4 Absolute Lymphs (auto) 2.70 Nucleated RBC % 0 Sodium 140 Potassium 4.0 Chloride 108 H Carbon Dioxide 27.0 Anion Gap 5 BUN 24 H Creatinine 1.21 Estim Creat Clear Calc 44.94 Est GFR (MDRD) Af Amer 73 Est GFR (MDRD) Non-Af 60 BUN/Creatinine Ratio 19.8 Glucose 203 H Calcium 8.3 L Treatment and Re-Evaluation :: Reassessed at 2232. His symptoms have resolved. His blood pressure has improved without treatment. Since there is no evidence of endorgan dysfunction he was discharged to home. Discharge Plan Triage Chief Complaint: Hypertension ED Provider: Bernard Hutson Dx/Rx/DC Orders Clinical Impression: Accelerated essential hypertension, Hyperlipidemia, H/O coronary artery bypass surgery Instructions: ED Hypertension, Established Prescriptions: No Action nitroglycerin 0.4 mg tablet, sublingual 0.4 mg SUBLINGUAL Q5M PRN (Reason: Chest Pain) Qty: 25 3RF aspirin 81 MG tablet,chewable 81 mg PO DAILY@0800 Patient Comments: heart health amlodipine 2.5 mg tablet 2.5 mg PO DAILY Qty: 90 3RF metoprolol tartrate 50 mg tablet 50 mg PO BID Qty: 180 3RF rosuvastatin 20 mg tablet 20 mg PO QHS Qty: 90 3RF clopidogrel 75 mg tablet 75 mg PO DAILY Qty: 90 3RF pantoprazole 20 mg tablet,delayed release (DR/EC) See Rx Instructions .ROUTE .COMPLEX Qty: 180 3RF Dose Instruction: TAKE 2 TABLETS (40 MG) EVERY OTHER DAY FOR GASTROESOPHAGEAL REFLUX DISEASE Rx Instructions: TAKE 2 TABLETS (40 MG) EVERY OTHER DAY FOR GASTROESOPHAGEAL REFLUX DISEASE ramipril 10 mg capsule 10 mg PO BID Qty: 180 4RF Rx Instructions: BP hydrochlorothiazide 25 mg tablet 25 mg PO DAILY Qty: 90 3RF Rx Instructions: WATER PILL Primary Care Provider: Safia Caba Referrals: Nathaly Gilman MD [Med Staff - Motorized [employer] Lieutenant] - 1-2 Weeks Disposition Disposition: Home, Self Care
[2023-09-24 21:57] VITALS: BP 155/87; PULSE 75; RESP 17; O2SAT 96
[2023-09-24 22:58] VITALS: BP 159/70; PULSE 68; RESP 22; O2SAT 96
--- NOTE | 2023-09-24 22:58 | EDS_ITS ---
HPI History of Present Illness Chief Complaint: Hypertension [facility] Medical History Atherosclerosis of coronary artery of [place] heart without angina pectoris Basal cell carcinoma BPH (benign prostatic hyperplasia) Colon cancer Essential hypertension Former smoker GERD (gastroesophageal reflux disease) Hyperlipidemia Old myocardial infarction Paroxysmal atrial fibrillation SBO (small bowel obstruction) Small bowel obstruction Type 2 diabetes mellitus without complications Wears hearing aid in both ears Home Medications aspirin 81 mg chewable tablet 81 mg PO DAILY@0800 HEART 11/29/14 [History Last Taken 05/08/21] nitroglycerin 0.4 mg sublingual tablet 0.4 mg sublingual Q5M PRN Chest Pain #25 tabs 05/18/20 [Rx Last Taken Unknown] amlodipine 2.5 mg tablet 2.5 mg PO DAILY bp #90 tabs 03/11/23 [Rx Last Taken Unknown] metoprolol tartrate 50 mg tablet 50 mg PO BID heart #180 tabs 03/24/23 [Rx Last Taken Unknown] rosuvastatin 20 mg tablet 20 mg PO QHS CHOLESTEROL #90 tabs 03/24/23 [Rx Last Taken Unknown] clopidogrel 75 mg tablet 75 mg PO DAILY #90 tabs 06/02/23 [Rx Last Taken Unknown] pantoprazole 20 mg tablet,delayed release See Rx Instructions .Route .COMPLEX #180 tabs 06/16/23 [Rx Last Taken Unknown] ramipril 10 mg capsule 10 mg PO BID bp #180 caps 06/16/23 [Rx Last Taken Unknown] hydrochlorothiazide 25 mg tablet 25 mg PO DAILY bp #90 tabs 08/26/23 [Rx Last Taken Unknown] Allergy/AdvReac Type Severity Reaction Status Date / Time Sulfa (Sulfonamide Allergy itching, Verified 09/24/23 18:00 Antibiotics) headache cyclobenzaprine AdvReac severe Verified 09/24/23 18:00 headache Family History Mother CVA (cerebral vascular accident) Surgical History H/O coronary artery bypass surgery (10/17/04) History of herniorrhaphy History of left heart catheterization (05/20/18) History of partial colectomy Social History Smoking Status: Former smoker alcohol intake: never substance use type: does not use what type of physical activity do you participate in: bicycling frequency: 3-4 times per week EXAM Physical Exam Const Vital Signs: 09/24/23 17:57 09/24/23 19:56 09/24/23 20:06 Temperature 97.8 F Temperature Source Temporal Pulse Rate 76 68 Respiratory Rate 18 22 H Respiratory Effort Short of Breath Respiratory Pattern Tachypnea Blood Pressure 169/85 H 167/84 H Blood Pressure Mean 113 111 Pulse Ox 97 98 Oxygen Delivery Method Room Air Room Air 09/24/23 21:00 09/24/23 21:57 Temperature Temperature Source Pulse Rate 68 75 Respiratory Rate 14 17 Respiratory Effort Respiratory Pattern Blood Pressure 160/81 H 155/87 H Blood Pressure Mean 107 109 Pulse Ox 95 96 Oxygen Delivery Method Room Air Room Air MDM MDM Lab Data Attestation: I reviewed the patient's lab results. Labs: Laboratory Results - last 24 hr 09/24/23 20:54 WBC 7.1 RBC 3.85 L Hgb 12.2 L Hct 37.8 L MCV 98.2 H MCH 31.7 MCHC 32.3 RDW Std Deviation 47.7 H RDW Coeff of Helder 13.4 Plt Count 121 L MPV 10.6 Immature Gran % (Auto) 0.300 Neut % (Auto) 47.5 Lymph % (Auto) 38.1 [place] % (Auto) 10.2 H Eos % (Auto) 3.2 Baso % (Auto) 0.7 Absolute Neuts (auto) 3.4 Absolute Lymphs (auto) 2.70 Nucleated RBC % 0 Sodium 140 Potassium 4.0 Chloride 108 H Carbon Dioxide 27.0 Anion Gap 5 BUN 24 H Creatinine 1.21 Estim Creat Clear Calc 44.94 Est GFR (MDRD) Af Amer 73 Est GFR (MDRD) Non-Af 60 BUN/Creatinine Ratio 19.8 Glucose 203 H Calcium 8.3 L Discharge Plan Triage Chief Complaint: Hypertension ED Provider: Bernard Hutson Dx/Rx/DC Orders Clinical Impression: Accelerated essential hypertension, Hyperlipidemia, H/O coronary artery bypass surgery Instructions: ED Hypertension, Established Prescriptions: No Action nitroglycerin 0.4 mg tablet, sublingual 0.4 mg SUBLINGUAL Q5M PRN (Reason: Chest Pain) Qty: 25 3RF aspirin 81 MG tablet,chewable 81 mg PO DAILY@0800 Patient Comments: heart health amlodipine 2.5 mg tablet 2.5 mg PO DAILY Qty: 90 3RF metoprolol tartrate 50 mg tablet 50 mg PO BID Qty: 180 3RF rosuvastatin 20 mg tablet 20 mg PO QHS Qty: 90 3RF clopidogrel 75 mg tablet 75 mg PO DAILY Qty: 90 3RF pantoprazole 20 mg tablet,delayed release (DR/EC) See Rx Instructions .ROUTE .COMPLEX Qty: 180 3RF Dose Instruction: TAKE 2 TABLETS (40 MG) EVERY OTHER DAY FOR GASTROESOPHAGEAL REFLUX DISEASE Rx Instructions: TAKE 2 TABLETS (40 MG) EVERY OTHER DAY FOR GASTROESOPHAGEAL REFLUX DISEASE ramipril 10 mg capsule 10 mg PO BID Qty: 180 4RF Rx Instructions: BP hydrochlorothiazide 25 mg tablet 25 mg PO DAILY Qty: 90 3RF Rx Instructions: WATER PILL Primary Care Provider: Safia Caba Referrals: Nathaly Gilman MD [Med Staff - [employer] Inspector] - 1-2 Weeks Disposition Disposition: Home, Self Care
== END 2023-09-24 22:59 | disposition home or self-care (01) ==
PROVIDERS: Emergency Provider Emergency Medicine; PCP Family Medicine; Visit Provider Emergency Medicine
DX: I10 Essential (primary) hypertension (principal); I48.0 Paroxysmal atrial fibrillation; E11.9 Type 2 diabetes mellitus without complications; I25.10 Atherosclerotic heart disease of native coronary artery without angina pectoris; Z87.891 Personal history of nicotine dependence; E78.5 Hyperlipidemia, unspecified; Z95.1 Presence of aortocoronary bypass graft; Z79.82 Long term (current) use of aspirin; I25.2 Old myocardial infarction
CPT/HCPCS: 80048; 85025; 93005; 99285

== ENCOUNTER → 2023-10-27 | Outpatient (CLI) | payer MEDICARE, SELFPAY ==
[2023-10-27 15:19] LABS: Absolute Lymphocyte Count 2.52 X10^3/uL (0.83-4.51); Absolute Neutrophil Count 5.6 X10^3/uL (2.0-7.7); Basophil# 0.07 X10^3/uL; Basophil% 0.8 % (0-1); Eosinophil# 0.24 X10^3/uL; Eosinophils% 2.6 % (0-5); Hematocrit 41.7 % (40-54); Hemoglobin 13.3 g/dL (13.0-16.5); Lymphocyte # 2.52 X10^3/ul (0.83-4.51); Lymphocyte % 27.7 % (19-41); Mean Corp Hgb Conc 31.9 g/dL (32-36); Mean Corpuscular Hgb 31.5 pg (27.0-32.0); Mean Corpuscular Volume 98.8 fL (80-94); Mean Platelet Vol. 10.7 fl (6.2-12.0); Monocyte# 0.61 X10^3/uL; Monocyte% 6.7 % (0-10); NRBC Flagged by Analyzer 0 % (0-5); Neutrophil # 5.64 X10^3/uL (2.7-7.7); Platelet Count 210 K/mm3 (150-450); RBC Distribution Width CV 13.5 % (11.6-14.6); RBC Distribution Width SD 48.6 fl (35.1-43.9); Red Blood Count 4.22 M/mm3 (4.6-6.2); White Blood Count 9.1 K/mm3 (4.4-11.0)
[2023-10-27 15:56] LABS: AST(SGOT) 18 U/L (15-37); Alanine Aminotransfer ALT/SGPT 21 U/L (16-61); Albumin, Serum 3.5 g/dL (3.2-5.0); Alkaline Phosphatase 66 U/L (45-117); Anion Gap 6 (5-15); BUN 30 mg/dL (7-18); BUN/Creat Ratio 21.7 RATIO (10-20); Calcium,Total 9.2 mg/dL (8.5-10.1); Chloride 103 mmol/L (98-107); Creatinine, Serum 1.38 mg/dL (0.70-1.30); EST Glomerular Filtration Rate 52 mL/min (>60); Est Glom Filt Rate - Afr Amer 62 mL/min (>60); Globulin 3.6 g/dL (2.2-4.2); Glucose 231 mg/dL (74-106); Potassium 4.3 mmol/L (3.5-5.1); Protein, Total 7.1 g/dL (6.4-8.2); Sodium Level 134 mmol/L (136-145)
== END | disposition home or self-care (01) ==
LOC: MFPLAB 11:41
PROVIDERS: PCP Family Medicine; Visit Provider Family Medicine
DX: K92.2 Gastrointestinal hemorrhage, unspecified (principal)
CPT/HCPCS: 36415; 80053; 85025

== ENCOUNTER → 2024-04-02 | Outpatient (CLI) | payer MEDICARE, SELFPAY ==
[2024-04-02 12:39] LABS: Absolute Lymphocyte Count 2.63 X10^3/uL (0.83-4.51); Absolute Neutrophil Count 5.5 X10^3/uL (2.0-7.7); Basophil# 0.05 X10^3/uL; Basophil% 0.5 % (0-1); Eosinophil# 0.34 X10^3/uL; Eosinophils% 3.6 % (0-5); Hematocrit 40.4 % (40-54); Hemoglobin 13.1 g/dL (13.0-16.5); Lymphocyte # 2.63 X10^3/ul (0.83-4.51); Lymphocyte % 27.9 % (19-41); Mean Corp Hgb Conc 32.4 g/dL (32-36); Mean Corpuscular Hgb 31.7 pg (27.0-32.0); Mean Corpuscular Volume 97.8 fL (80-94); Mean Platelet Vol. 11.5 fl (6.2-12.0); Monocyte# 0.87 X10^3/uL; Monocyte% 9.2 % (0-10); NRBC Flagged by Analyzer 0 % (0-5); Neutrophil # 5.52 X10^3/uL (2.7-7.7); Neutrophil % 58.5 % (47-70); Platelet Count 155 K/mm3 (150-450); RBC Distribution Width CV 13.5 % (11.6-14.6); RBC Distribution Width SD 48.7 fl (35.1-43.9); Red Blood Count 4.13 M/mm3 (4.6-6.2); White Blood Count 9.4 K/mm3 (4.4-11.0)
[2024-04-02 12:46] LABS: Microalbumin,Random Urine 30.7 mg/L (NO RANGE EST.); Microalbumin:Creatinine Ratio 32.5 mg/g CRE (<30 mg/g CRE)
[2024-04-02 13:13] LABS: AST(SGOT) 17 U/L (15-37); Alanine Aminotransfer ALT/SGPT 16 U/L (16-61); Albumin, Serum 3.4 g/dL (3.2-5.0); Alkaline Phosphatase 59 U/L (45-117); Anion Gap 6 (5-15); BUN 27 mg/dL (7-18); BUN/Creat Ratio 22.3 RATIO (10-20); Calcium,Total 8.8 mg/dL (8.5-10.1); Chloride 107 mmol/L (98-107); Cholesterol 127 mg/dL (200); Creatinine, Serum 1.21 mg/dL (0.70-1.30); EST Glomerular Filtration Rate 60 mL/min (>60); Est Glom Filt Rate - Afr Amer 73 mL/min (>60); Globulin 3.4 g/dL (2.2-4.2); Glucose 271 mg/dL (74-106); High Density Lipoprotein 53 mg/dL; PSA,Total - Annual Screen < 0.01 ng/mL (0.00-4.00); Potassium 4.3 mmol/L (3.5-5.1); Protein, Total 6.8 g/dL (6.4-8.2); Sodium Level 137 mmol/L (136-145); Triglycerides 207 mg/dL; Very Low Density Lipoprotein 41 mg/dL (5-40)
[2024-04-02 13:17] LABS: AST(SGOT) 14 U/L (15-37); Alanine Aminotransfer ALT/SGPT 15 U/L (16-61); Albumin, Serum 3.4 g/dL (3.2-5.0); Alkaline Phosphatase 58 U/L (45-117); Bilirubin, Direct 0.21 mg/dL (0.00-0.30); Cholesterol 126 mg/dL (200); Globulin 3.4 g/dL (2.2-4.2); High Density Lipoprotein 53 mg/dL; Protein, Total 6.8 g/dL (6.4-8.2); Triglycerides 208 mg/dL; Very Low Density Lipoprotein 42 mg/dL (5-40)
[2024-04-02 13:28] LABS: Hemoglobin A1c 8.3 % (3.8-5.6)
== END | disposition home or self-care (01) ==
LOC: MTLAB 10:56
PROVIDERS: Family Medicine; PCP Family Medicine; Referring Provider Physician Assistant Medical; Visit Provider Physician Assistant Medical
DX: I10 Essential (primary) hypertension (principal); E11.22 Type 2 diabetes mellitus with diabetic chronic kidney disease; E11.65 Type 2 diabetes mellitus with hyperglycemia; E78.00 Pure hypercholesterolemia, unspecified; Z85.46 Personal history of malignant neoplasm of prostate; Z12.5 Encounter for screening for malignant neoplasm of prostate
CPT/HCPCS: 36415; 80053; 80061; 80076; 82043; 82570; 83036; 84153; 85025; G0103

== ENCOUNTER → 2024-09-20 | Outpatient (CLI) | payer MEDICARE, SELFPAY ==
--- NOTE | 2024-09-20 11:47 | RAD_ITS ---
EXAM: XR LEFT KNEE COMPLETE, 4 OR MORE VIEWS CLINICAL INDICATION: PAIN TECHNIQUE: Four or more views of the left knee. COMPARISON: No relevant prior studies available. FINDINGS: BONES/JOINTS: There is mild chondrocalcinosis of the lateral knee joint. No acute fracture. No subluxation. Normal alignment. No sclerotic or destructive changes observed. SOFT TISSUES: There are multiple surgical clips in the soft tissues. No soft tissue swelling or gas. No radiopaque foreign body. RAD/Knee 4 or More Views IMPRESSION: No acute findings in the left knee. Electronically Signed: Rj Parnell MD at 16:22 EDT ,
== END | disposition home or self-care (01) ==
PROVIDERS: PCP Family Medicine
DX: M25.569 Pain in unspecified knee (principal)
CPT/HCPCS: 73564

== ENCOUNTER 2024-11-29 17:31 | Emergency (ER) | payer MEDICARE, SELFPAY ==
[2024-11-29] VITALS (7 sets, daily range): BP systolic 140–148; BP diastolic 70–75; PULSE 81–112; RESP 16–18; TEMP 36.6–36.7; O2SAT 95–96; BMI 32.8
[2024-11-29 17:58] LABS: Absolute Lymphocyte Count 1.67 X10^3/uL (0.83-4.51); Basophil# 0.05 X10^3/uL; Basophil% 0.4 % (0-1); Eosinophil# 0.14 X10^3/uL; Eosinophils% 1.2 % (0-5); Hematocrit 40.9 % (40-54); Hemoglobin 13.6 g/dL (13.0-16.5); Lymphocyte # 1.67 X10^3/ul (0.83-4.51); Lymphocyte % 14.1 % (19-41); Mean Corp Hgb Conc 33.3 g/dL (32-36); Mean Corpuscular Hgb 32.6 pg (27.0-32.0); Mean Corpuscular Volume 98.1 fL (80-94); Mean Platelet Vol. 11.8 fl (6.2-12.0); Monocyte# 1.02 X10^3/uL; Monocyte% 8.6 % (0-10); NRBC Flagged by Analyzer 0 % (0-5); Neutrophil # 8.96 X10^3/uL (2.7-7.7); Neutrophil % 75.4 % (47-70); POSITIVE COUNT YES; Platelet Count 140 K/mm3 (150-450); RBC Distribution Width CV 13.3 % (11.6-14.6); RBC Distribution Width SD 47.7 fl (35.1-43.9); Red Blood Count 4.17 M/mm3 (4.6-6.2); White Blood Count 11.9 K/mm3 (4.4-11.0)
[2024-11-29 17:59] LABS: Differential Indicated SCAN CRITERIA MET
[2024-11-29 18:15] LABS: ALB/GLOB Ratio 0.8 RATIO (0.9-2.4); AST(SGOT) 22 U/L (15-37); Alanine Aminotransfer ALT/SGPT 17 U/L (16-61); Albumin, Serum 3.2 g/dL (3.2-5.0); Alkaline Phosphatase 81 U/L (45-117); Anion Gap 7 (5-15); BUN 22 mg/dL (7-18); BUN/Creat Ratio 16.9 RATIO (10-20); Calcium,Total 9.2 mg/dL (8.5-10.1); Chloride 102 mmol/L (98-107); EST Glomerular Filtration Rate 55 mL/min (>60); Est Glom Filt Rate - Afr Amer 67 mL/min (>60); Estimated Creatinine Clearance 47.85 ml/min; Globulin 4.2 g/dL (2.2-4.2); Glucose 343 mg/dL (74-106); Potassium 4.8 mmol/L (3.5-5.1); Protein, Total 7.4 g/dL (6.4-8.2); Sodium Level 133 mmol/L (136-145)
[2024-11-29 18:37] LABS: Anisocytosis 1+; Macrocytosis 1+; Platelet Estimate ADEQUATE (ADEQ); Red Cell Morphology N CHROM NORMAL (NORM C&C)
--- NOTE | 2024-11-29 20:57 | CT_ITS ---
We are attempting to reach an attending provider to discuss findings. An addendum with communication details will be sent when the communication is complete. EXAM: CT ABDOMEN AND PELVIS WITH INTRAVENOUS CONTRAST CLINICAL INDICATION: lower abdominal pain TECHNIQUE: Helically acquired images were obtained of the abdomen and pelvis with intravenous contrast. This CT exam was performed using one or more of the following dose reduction techniques: automated exposure control, adjustment of the mA and/or kV according to patient size, and/or use of iterative reconstruction technique. RADIATION DOSE: CTDIvol = 20.52 mGy, DLP = 1481.52 mGy-cmContrast: IV 100mL Isovue-370 COMPARISON: December 23, 2019. FINDINGS: LOWER THORAX: Median sternotomy wires are partially included. Presumed stents in the [place] coronary arteries and bypass grafts from the descending aorta, the aorta is not fully included. At least mild calcifications of the aortic valve leaflets. Chronic-appearing changes in the lung bases, zones of hyperlucency. Bilobed appearance of the spleen with a punctate calcification, possibly due to old healed splenic fracture. No cardiomegaly. No significant pericardial effusion. ABDOMEN: LIVER: Unremarkable. Homogeneous. No focal mass. GALLBLADDER AND BILE DUCTS: Multiple small stones layering dependently in the proximal body of the gallbladder, no obvious gallbladder inflammation or duct dilatation. No gallbladder distention or wall edema. PANCREAS: New mild hazy soft tissue stranding medial to the head and uncinate process of the pancreas and new or newly visible hypodense 1.4 cm x 0.9 cm x 1.3 cm lesion in the medial pancreas at the head which may be pseudocyst or cystic neoplasm, no visible enhancement. SPLEEN: See above. ADRENALS: Unremarkable. No nodules. KIDNEYS AND URETERS: Multiple small bilateral renal cortical cysts and suspicion of a few mildly prominent left parapelvic renal cysts. STOMACH AND BOWEL: Postoperative change of the proximal sigmoid. Moderate stool and gas in the more proximal colon, mild gas and stool in the distal sigmoid and rectum. Fluid and gas-filled small bowel extending immediately adjacent to the orifice of small left inguinal hernia, not frankly herniated. The surgical clips between the rectum and prostate appear similar. No stomach or bowel distention. No focal inflammatory change. PELVIS: APPENDIX: No evidence of acute appendicitis. BLADDER: Unremarkable. REPRODUCTIVE: See above. ABDOMEN and PELVIS: INTRAPERITONEAL SPACE: Unremarkable. No ascites or other fluid collection. No free air. BONES/JOINTS: Vacuum disc at L4-5 and L5-S1 and mild vacuum disc at other levels. At least mild spinal stenosis at L3-4 and L4-5 due to combined degenerative changes. No suspicious lytic or blastic abnormality. SOFT TISSUES: Unremarkable. No discrete abdominal or pelvic wall hernia. VASCULATURE: Atherosclerotic calcification of aortoiliac vessels, no aneurysm or dissection. Heavily calcified origins of the renal arteries, suspicion of at least moderate renal artery stenosis. Patent mesenteric vessels. LYMPH NODES: An ovoid peripancreatic lymph node superior to the proximal pancreas of 1.6 cm craniocaudal appears similar to 2020. CT/Abdomen/Pelvis W IV Cont ONLY IMPRESSION: 1. Newly seen 1.4 cm cystic lesion in the medial head/uncinate process of the pancreas. Adjacent new mild hazy peripancreatic soft tissue stranding at the proximal pancreas. Likely due to acute pancreatitis and small pancreatic pseudocyst and/or cystic neoplasm with mild superimposed acute pancreatitis. Recommendation: Correlate with evidence of pancreatitis and appropriate follow-up. Short-term follow-up imaging is recommended. 2. Cholelithiasis. No evidence of acute cholecystitis or choledocholithiasis. 3. Moderate gas and stool in the proximal two thirds of the colon. Postoperative change at the proximal sigmoid. No evidence of bowel obstruction. 4. Small left inguinal hernia with a short small bowel segment slightly bulging into the hernia neck but not frankly herniated or obstructed. Similar to prior exam. 5. Moderate aortic valve region calcifications, suspicion of some degree of aortic stenosis. Normal heart size. Electronically Signed: Annabella Regan MD at 23:24 EST ,
[2024-11-29 21:19] LABS: Bacteria 0 SEEN /hpf (None Seen); Mucous, Urine 0 SEEN /hpf (<or=2+); White Blood Cells 0 SEEN /hpf (0-5)
[2024-11-29 21:20] LABS: Color, Urine Yellow (Yellow); Glucose, Dipstick 1000 mg/dl (Normal); Ketone-Dipstick Negative (Negative); Leukocyte Esterase-Dipstick Negative /ul (Negative); Nitrite-Dipstick Negative (Negative); Occult Blood-Urine 10 /ul (Negative); Protein-Dipstick 30 mg/dl (Negative); Urine Bilirubin Dipstick Negative (Negative); Urine Clarity Clear (Clear); Urine Urobilinogen 1 mg/dl (Normal)
[2024-11-29 21:27] LABS: Red Blood Cells-Urine 0-5 SEEN /hpf (0-5); Squamous Epithelial Cells - UA 0-5 SEEN /hpf (0-5)
--- NOTE | 2024-11-29 23:48 | EDS_ITS ---
HPI History of Present Illness Chief Complaint: Abd Pain Narrative Narrative: Patient is a 89-year-old male with a past medical history of chronic kidney disease stage III, hypertension, small bowel obstruction, type 2 diabetes, paroxysmal atrial fibrillation, colon cancer with bowel resection who presents to the [facility] with a chief complaint of abdominal discomfort. He states that today he noted that he had lower abdominal discomfort and states that he had several bowel movements therefore he was concerned that he may be developing another bowel obstruction as he has had several in the past. Patient denies any sick contacts. He states that he ate earlier today and has not had any nausea vomiting. 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 Paroxysmal atrial fibrillation Hyperlipidemia Old myocardial infarction Small bowel obstruction Colon cancer Home Medications ?Medication ?Instructions ?Recorded ?Last Taken ?Type aspirin 81 mg chewable tablet 81 mg PO DAILY HEART 11/29/14 10/13/23 18:00 History 81 mg metoprolol tartrate 50 mg tablet 50 mg PO BID heart #180 tabs 03/24/23 10/13/23 06:00 Rx sucralfate 1 gram tablet 1 g PO BID 21 days #42 tabs 10/16/23 Unknown Rx amlodipine 2.5 mg tablet 2.5 mg PO DAILY for blood pressure 02/16/24 Unknown Rx #90 TABLETS rosuvastatin 20 mg tablet 20 mg PO QHS CHOLESTEROL #90 tabs 02/25/24 Unknown Rx pantoprazole 40 mg tablet,delayed 40 mg PO DAILY for acid reflux #90 05/20/24 Unknown Rx release TABLETS hydrochlorothiazide 25 mg tablet 25 mg PO DAILY for blood pressure 07/02/24 Unknown Rx #90 TABLETS nitroglycerin 0.4 mg sublingual 0.4 mg sublingual Q5M PRN Chest 07/23/24 Unknown Rx tablet Pain #25 tabs ramipril 10 mg capsule 10 mg PO BID for blood pressure 08/03/24 Unknown Rx #180 caps dicyclomine 20 mg tablet 20 mg PO TID #20 tabs 11/29/24 Unknown Rx ondansetron 4 mg disintegrating 4 mg PO Q6H PRN nausea and 11/29/24 Unknown Rx tablet vomiting #20 tabs Allergy/AdvReac Type Severity Reaction Status Date / Time Sulfa (Sulfonamide Allergy itching, Verified 11/29/24 17:33 Antibiotics) headache cyclobenzaprine AdvReac severe Verified 11/29/24 17:33 headache Family History Mother CVA (cerebral vascular accident) Surgical History History of left heart catheterization (05/20/18) History of herniorrhaphy History of partial colectomy H/O coronary artery bypass surgery (10/17/04) Social History Smoking Status: Former smoker alcohol intake: never substance use type: does not use what type of physical activity do you participate in: bicycling frequency: 3-4 times per week ROS ROS ED ROS Narrative Constitutional: Denies any fevers, chills, headaches Cardiovascular: Denies chest pain or palpitations Respiratory: Denies shortness of breath Abdomen: Complains of abdominal discomfort as noted above denies nausea vomiting diarrhea : Denies any urinary symptoms Neurological: Denies any numbness, weakness, tingling Musculoskeletal: Complains of lower back pain Skin: Denies any rashes or lesions EXAM Physical Exam Narrative Exam Narrative: General: Patient lying in bed rest comfortably did not appear to be in acute distress Head: Atraumatic, normocephalic Eyes: PERRL bilaterally, EOMI bilaterally, no conjunctival injection noted Neck: Soft, supple, trachea midline Cardiovascular: Regular rate and rhythm Respiratory: Clear to auscultation bilaterally Abdomen: Soft, nondistended, diffuse tenderness to palpation throughout the lower portion of his abdomen no rebound or guarding on exam Extremities: +5/5 strength noted in the bilateral upper and lower extremities, radial pulses +2/4 in the bilateral upper extremities Neurological: Patient following commands knew that he was at [facility] years 2023 Skin: Warm and dry, intact Const Vital Signs: 11/29/24 17:33 11/29/24 17:35 11/29/24 20:30 Temperature 98 F 98 F 98.0 F Temperature Source Temporal Temporal Oral Pulse Rate 112 H 112 H 81 Respiratory Rate 16 16 18 Blood Pressure 145/72 H 145/72 H 144/70 H Blood Pressure Mean 96 96 94 Pulse Ox 96 96 96 Oxygen Delivery Method Room Air Room Air Room Air 11/29/24 20:30 11/29/24 21:00 11/29/24 22:00 Temperature 98.0 F 98.1 F Temperature Source Oral Oral Pulse Rate 81 81 86 Respiratory Rate 18 18 18 Blood Pressure 144/70 H 148/72 H 143/74 H Blood Pressure Mean 94 97 97 Pulse Ox 96 96 95 Oxygen Delivery Method Room Air Room Air Room Air 11/29/24 23:00 Temperature 98.1 F Temperature Source Oral Pulse Rate 90 Respiratory Rate 18 Blood Pressure 140/71 H Blood Pressure Mean 94 Pulse Ox 95 Oxygen Delivery Method Room Air MDM MDM MDM Narrative Medical decision making narrative: Patient is a 89-year-old male who presented to the Emergency Department chief complaint of abdominal pain. Patient will have a workup performed here on the differential diagnose includes Melamin to UTI, urinary retention secondary to BPH, viral gastroenteritis, appendicitis, diverticulitis. Once workup is obtained reviewed he will be reevaluated. Patient's CBC was reviewed and showed white blood count 11,000, hemoglobin was 13.6, plate count was noted to be 140. Patient sodium 133, potassium was 4.8, creatinine normal at 1.30. Patient's total bilirubin was noted to be 1.10. Patient's AST and ALT were normal at 22 and 17 respectively. Patient's urinalysis did not reveal any evidence of infection. Patient bladder scan was noted to have 345 mL of urine. Patient's CT abdomen pelvis with IV contrast was reviewed and showed a newly seen 1.4 cm cystic lesion in the medial head/uncinate process of the pancreas. Has adjacent new mild hazy [place] pancreatic soft tissue stranding at the proximal pancreas. Likely due to acute pancreatitis and small pancreatic pseudocyst and/or cystic neoplasm with mild superimposed acute pancreatitis. Patient does not have any tenderness palpation epigastric region and this was repeated at 11:54 PM. Cholelithiasis no evidence of acute cholecystitis noted. Moderate gas and stool in the proximal two thirds of the colon. Postoperative change at the proximal sigmoid no evidence of bowel obstruction. Small left inguinal hernia which is similar to prior exam. Moderate aortic valve region calcifications suspicion of some degree of aortic stenosis normal heart size. Did discuss results with the patient I provided a hard copy of the CT results for the patient record and advised them to have short-term follow-up imaging per recommendations of radiology. I advised him to take this to their primary care physician and have them order the appropriate testing. Once again the patient's abdominal exam was repeated and his abdomen remains benign at 11:54 PM. He was encouraged to continue to hydrate he was advised to increase his MiraLAX from once a day to twice a day for the next few days. He is encouraged to return with worsening symptoms or concerns. He is agreeable this plan would like to go home at this point time all question concerns answered he was discharged home in stable condition. Patient will be on prescription for Bentyl and Zofran. Lab Data Labs: Laboratory Results - last 24 hr 11/29/24 11/29/24 17:48 21:13 WBC 11.9 H RBC 4.17 L Hgb 13.6 Hct 40.9 MCV 98.1 H MCH 32.6 H MCHC 33.3 RDW Std Deviation 47.7 H RDW Coeff of Helder 13.3 Plt Count 140 L MPV 11.8 Immature Gran % (Auto) 0.300 Neut % (Auto) 75.4 H Lymph % (Auto) 14.1 L Rooks % (Auto) 8.6 Eos % (Auto) 1.2 Baso % (Auto) 0.4 Absolute Neuts (auto) 9.0 H Absolute Lymphs (auto) 1.67 Nucleated RBC % 0 Platelet Estimate ADEQUATE RBC Morphology N CHROM Anisocytosis 1+ Macrocytosis 1+ Sodium 133 L Potassium 4.8 Chloride 102 Carbon Dioxide 25.0 Anion Gap 7 BUN 22 H Creatinine 1.30 Estim Creat Clear Calc 47.85 Est GFR (MDRD) Af Amer 67 Est GFR (MDRD) Non-Af 55 L BUN/Creatinine Ratio 16.9 Glucose 343 H Calcium 9.2 Total Bilirubin 1.10 H AST 22 ALT 17 Alkaline Phosphatase 81 Total Protein 7.4 Albumin 3.2 Globulin 4.2 Albumin/Globulin Ratio 0.8 L Urine Color Yellow Urine Clarity Clear Urine pH 6.0 Ur Specific [place] 1.010 Urine Protein 30 H Urine Glucose (UA) 1000 H Urine Ketones Negative Urine Occult Blood 10 H Urine Nitrite Negative Urine Bilirubin Negative Urine Urobilinogen 1 H Ur Leukocyte Esterase Negative Urine RBC 0-5 SEEN Urine WBC 0 SEEN Ur Squamous Epith Cells 0-5 SEEN Urine Bacteria 0 SEEN Urine Mucus 0 SEEN Radiography Diagnostic Testing: Clinical Impression(s) from Imaging Studies Abdomen/Pelvis CT 11/29/24 20:57 IMPRESSION: 1. Newly seen 1.4 cm cystic lesion in the medial head/uncinate process of the pancreas. Adjacent new mild hazy peripancreatic soft tissue stranding at the proximal pancreas. Likely due to acute pancreatitis and small pancreatic pseudocyst and/or cystic neoplasm with mild superimposed acute pancreatitis. Recommendation: Correlate with evidence of pancreatitis and appropriate follow-up. Short-term follow-up imaging is recommended. 2. Cholelithiasis. No evidence of acute cholecystitis or choledocholithiasis. 3. Moderate gas and stool in the proximal two thirds of the colon. Postoperative change at the proximal sigmoid. No evidence of bowel obstruction. 4. Small left inguinal hernia with a short small bowel segment slightly bulging into the hernia neck but not frankly herniated or obstructed. Similar to prior exam. 5. Moderate aortic valve region calcifications, suspicion of some degree of aortic stenosis. Normal heart size. Electronically Signed: Annabella Regan MD at 23:24 EST Reading Location ID and State: [facility] / [place] Tel , Service support , ADDENDUM: 11/29/24 2574 IMPRESSION: 1. Newly seen 1.4 cm cystic lesion in the medial head/uncinate process of the pancreas. Adjacent new mild hazy peripancreatic soft tissue stranding at the proximal pancreas. Likely due to acute pancreatitis and small pancreatic pseudocyst and/or cystic neoplasm with mild superimposed acute pancreatitis. Recommendation: Correlate with evidence of pancreatitis and appropriate follow-up. Short-term follow-up imaging is recommended. 2. Cholelithiasis. No evidence of acute cholecystitis or choledocholithiasis. 3. Moderate gas and stool in the proximal two thirds of the colon. Postoperative change at the proximal sigmoid. No evidence of bowel obstruction. 4. Small left inguinal hernia with a short small bowel segment slightly bulging into the hernia neck but not frankly herniated or obstructed. Similar to prior exam. 5. Moderate aortic valve region calcifications, suspicion of some degree of aortic stenosis. Normal heart size. N.B. : The above Results were Read Back by Annabella Regan MD to Melo Hairston DO, and understanding confirmed on 11/29/2024 23:40:07 (ET). Electronically Signed: Annabella Regan MD at 23:24 EST Reading Location ID and State: [address] [place] [address] Tel , Service support , Discharge Plan Triage Chief Complaint: Abd Pain Other Complaint: Complaint ED Provider: Melo Hairston Dx/Rx/DC Orders Clinical Impression: Abdominal pain Prescriptions: New dicyclomine 20 mg tablet 20 mg PO TID Qty: 20 0RF ondansetron 4 mg tablet,disintegrating 4 mg PO Q6H PRN (Reason: nausea and vomiting) Qty: 20 0RF No Action aspirin 81 MG tablet,chewable 81 mg PO DAILY Patient Comments: heart health sucralfate 1 gram Tablet 1 g PO BID 21 Days Qty: 42 0RF metoprolol tartrate 50 mg tablet 50 mg PO BID Qty: 180 3RF amlodipine 2.5 mg tablet 2.5 mg PO DAILY Qty: 90 3RF rosuvastatin 20 mg tablet 20 mg PO QHS Qty: 90 3RF pantoprazole 40 mg tablet,delayed release (DR/EC) 40 mg PO DAILY Qty: 90 3RF hydrochlorothiazide 25 mg tablet 25 mg PO DAILY Qty: 90 3RF nitroglycerin 0.4 mg tablet, sublingual 0.4 mg SUBLINGUAL Q5M PRN (Reason: Chest Pain) Qty: 25 3RF ramipril 10 mg capsule 10 mg PO BID Qty: 180 3RF Primary Care Provider: Ciaran Fraser Referrals: Ciaran Fraser MD [Primary Care Provider] - Activity Restrictions/Additional Instructions: Follow-up with your doctor in the outpatient setting. Return with worsening symptoms or other concerns. Use prescriptions as prescribed. Take the CT results that I provided you today to your primary care physician for further follow-up imaging on your pancreas. Print Language: Sammarinese Disposition Disposition: Home, Self Care
[2024-11-29] MEDS: Dicyclomine 10 MG Capsule 20 MG PO (23:54)
== END 2024-11-29 23:59 | disposition home or self-care (01) ==
PROVIDERS: Emergency Provider Emergency Medicine; PCP Family Medicine; Visit Provider Emergency Medicine
DX: R10.9 Unspecified abdominal pain (principal); E11.22 Type 2 diabetes mellitus with diabetic chronic kidney disease; N18.31 Chronic kidney disease, stage 3a; Z87.891 Personal history of nicotine dependence; I12.9 Hypertensive chronic kidney disease with stage 1 through stage 4 chronic kidney disease, or unspecified chronic kidney disease; K40.90 Unilateral inguinal hernia, without obstruction or gangrene, not specified as recurrent; I25.10 Atherosclerotic heart disease of native coronary artery without angina pectoris; I70.0 Atherosclerosis of aorta; E78.5 Hyperlipidemia, unspecified; K80.20 Calculus of gallbladder without cholecystitis without obstruction; Z95.1 Presence of aortocoronary bypass graft; I25.2 Old myocardial infarction; K21.9 Gastro-esophageal reflux disease without esophagitis; Z85.038 Personal history of other malignant neoplasm of large intestine; Z79.82 Long term (current) use of aspirin
CPT/HCPCS: 74177; 80053; 81001; 85025; 87086; 96374; 99283; Q9967

== ENCOUNTER → 2024-12-31 | Outpatient (CLI) | payer MEDICARE, SELFPAY ==
--- NOTE | 2024-12-31 14:44 | CT_ITS ---
PROCEDURE: ABDOMEN/PELVIS WITHOUT CONT REASON FOR EXAM: History of pancreatitis. Follow-up examination. TECHNIQUE: Axial CT images of the abdomen and pelvis was performed without IV contrast enhancement. Sagittal and coronal reconstructed images were performed for better visualization of the horizontal structures. Limited assessment of the abdominal viscera without the use of IV contrast enhancement. COMPARISON: 11/29/2024 FINDINGS: Lung bases: Mild atelectatic changes within the lung bases. Liver: Mild fatty infiltration of the liver, with areas of focal fatty sparing. No discrete masses identified. Gallbladder: Cholelithiasis within a mildly distended gallbladder. No evidence of acute cholecystitis. Spleen: Bilobed with curvilinear calcification, stable. No splenomegaly. Pancreas: Subtle residual haziness adjacent to the pancreatic head. Previously seen cystic lesion within the pancreatic head is less conspicuous on current examination. Body and tail appear stable. Adrenals: No adrenal masses are identified. Kidneys: No calcifications or obstructive uropathy involving the bilateral collecting systems. Probable parapelvic cysts are seen bilaterally. Minimal perinephric fat stranding bilaterally, likely chronic.. Bladder: Moderately distended. No bladder calculi are seen. Reproductive Organs: Prostate gland is not enlarged. Few surgical clips adjacent to the prostate gland. Bowel: Small inguinal hernia on the left, containing a few small bowel loops. No proximal bowel obstruction. Mild amounts of fecal retention. The appendix is not well seen however no gross inflammatory changes within the suspected location of the appendix. Postsurgical changes involving the sigmoid colon. No pericolonic inflammatory changes. Lymph nodes: No suspicious lymph node enlargement. Vasculature: Vascular calcifications throughout the abdominal aorta and iliac arteries. Peritoneum / Retroperitoneum: No ascites. No free air. Bones: Degenerative change involving the visualized lumbar spine and bilateral SI joints. No acute fractures or dislocations are identified. CT/Abdomen/Pelvis without Cont IMPRESSION: 1. Subtle residual haziness adjacent to the pancreatic head. Correlate with am ylase and lipase levels further evaluation of acute pancreatitis. 2. Previously seen hypodensity within the pancreatic head, is less conspicuous on current examination. 3. Mild fatty infiltration of the liver, with areas of focal fatty sparing. 4. Cholelithiasis without evidence of acute cholecystitis. 5. Small inguinal hernia on the left, containing a few small bowel loops. No p roximal bowel obstruction is identified. 6. Appendix is not well seen however no gross inflammatory changes within the s uspected location of the appendix. 7. Additional findings, as detailed above One or more dose reduction techniques were used (e.g., Automated exposure contr ol, adjustment of the mA and/or kV according to patient size, use of iterative reconstruction technique). Reading [facility]
== END | disposition home or self-care (01) ==
PROVIDERS: PCP Family Medicine; Referring Provider Family Medicine; Visit Provider Family Medicine
DX: K85.90 Acute pancreatitis without necrosis or infection, unspecified (principal)
CPT/HCPCS: 74176